=== PATIENT | male | born 1955 | race Caucasian/White ===

== ENCOUNTER 2019-11-19 08:08 | Outpatient (REF) | payer MEDICARE, SELFPAY ==
--- NOTE | 2019-11-19 08:59 | XR_ITS ---
EXAMINATION: XR CHEST CLINICAL INFORMATION: Weight loss. Smoking history. COMPARISON: Previous chest x-ray March 2015 TECHNIQUE: 2 views of the chest were obtained. FINDINGS: The cardiac and mediastinal contours are stable. The lungs are clear. There is no pleural effusion or pneumothorax. There are mild degenerative changes of the spine. IMPRESSION: No evidence for acute disease in the chest.
[2019-11-19 10:42] LABS: MANUAL DIFF FLAG NO
[2019-11-19 10:54] LABS: Basophils Absolute Auto 0.1 X10*3/uL (0.0-0.2); Basophils Percent Auto 0.6 % (0-2); Eosinophils Absolute Auto 0.2 X10*3/uL (0.0-0.4); Eosinophils Percent Auto 1.7 % (0-4); Hematocrit 48.5 % (42-52); Imm Gran Abs Auto 0.05 X10*3/uL (0.00-0.03); Imm Gran Pct Auto 0.5 % (0.0-0.4); Lymphocytes Absolute Auto 1.6 X10*3/uL (1.2-4.9); Lymphocytes Percent Auto 17.6 % (20-40); Mean Corpuscular Hemoglobin 33.1 pg (27.0-33.0); Mean Corpuscular Volume 100.4 fL (80-98); Monocytes Absolute Auto 0.6 X10*3/uL (0.1-1.2); Monocytes Percent Auto 6.5 % (2-11); Neutrophils Absolute Auto 6.8 X10*3/uL (2.0-8.3); Neutrophils Percent Auto 73.1 % (45-73); Platelet Count 186 X10*3/uL (160-400); Red Blood Count 4.83 X10*6/uL (4.60-5.80); Red Cell Distribution Width 13.6 % (11.0-16.0); White Blood Count 9.3 X10*3/uL (4.8-10.8)
[2019-11-19 11:05] LABS: Alanine Aminotransferase 30 U/L (0-40); Alkaline Phosphatase 67 U/L (39-117); Anion Gap 13 (12-20); Aspartate Amino Transferase 28 U/L (5-37); Bilirubin Total 1.2 mg/dL (0.0-1.0); Blood Urea Nitrogen 11 mg/dL (9-16); Calcium 8.6 mg/dL (8.4-10.2); Carbon Dioxide 27 mmol/L (22-29); Chloride 106 mmol/L (96-108); Cholesterol 169 mg/dL; Estimated Glomerular Filt Rate > 60; Glucose Fasting 86 mg/dL (60-99); HDL Cholesterol 59 mg/dL; LDL Cholesterol Calculated 99 mg/dl; Potassium 4.9 mmol/l (3.3-5.1); Sodium 141 mmol/L (135-145); Total Protein 6.3 g/dL (6.5-8.0); Triglycerides 55 mg/dL
[2019-11-19 11:06] LABS: Glucose Urine UA NEG (NEG); Leukocyte Esterase Urine NEG (NEG); Nitrite Urine NEG (NEG); PH 5.5 (5.0-8.0); Specific Gravity - Urine >= 1.030 (1.005-1.025); Urine Blood NEG (NEG); Urine Ketones NEG (NEG); Urine Protein NEG (NEG-TRACE)
[2019-11-19 11:11] LABS: Appearance Urine CLEAR; Color Urine YELLOW
[2019-11-19 11:27] LABS: Prostate Specific Antigen Scr 3.02 ng/mL (<0.05-4.0)
== END 2019-11-19 08:09 | disposition home or self-care (01) ==
LOC: HO.XRAY 08:08
PROVIDERS: PCP Internal Medicine; Visit Provider Internal Medicine
DX: I49.3 Ventricular premature depolarization (principal); R63.4 Abnormal weight loss; N40.0 Benign prostatic hyperplasia without lower urinary tract symptoms; Z12.5 Encounter for screening for malignant neoplasm of prostate; Z87.891 Personal history of nicotine dependence
CPT/HCPCS: 36415; 71046; 80053; 80061; 81003; 84153; 85025

== ENCOUNTER → 2019-11-21 10:21 | Outpatient (REF) | payer MEDICARE, SELFPAY ==
--- NOTE | 2019-11-21 10:27 | CA_ITS ---
Transthoracic Echocardiogram Patient (Last, First, Middle): Adelso Tilley J Gender: Male Date of : 1955 Age: 64 Procedure Date: 11/21/2019 Procedure Type: Transthoracic Echocardiogram Location: OP Height: 182.88 cm Weight: 99.79 kg BSA: 2.22 m2 Heart Rate: bpm BP: 144 / 84 mmHg Storage Battery Charger: Referring MD: Khoa Cagle MD Symptoms: [facility] [place] Study Quality: Fair ECG Rhythm: Sinus with PVCs Conclusions: - The left ventricular systolic function is normal. The visually estimated ejection fraction is between 55-60%. - The left atrium is moderately dilated. - There is mild tricuspid valve regurgitation. - Mild pulmonary hypertension is present. Findings Left Ventricle Normal left ventricular cavity size. There is normal left ventricular wall thickness. The left ventricular systolic function is normal. The visually estimated ejection fraction is between 55-60%. The calculated ejection fraction is 57% by biplane method. Diastolic function is indeterminate on the basis of available data. Right Ventricle Mildly increased right ventricular cavity size. There is normal right ventricular systolic function. Atria The left atrium is moderately dilated. The right atrium is mildly dilated. Aortic Valve There is a normal trileaflet aortic valve. There is no aortic valve stenosis. There is trace (trivial) aortic valve regurgitation. Mitral Valve The mitral valve appears normal. There is trace mitral valve regurgitation. There is no mitral valve stenosis. Pulmonic Valve The pulmonic valve was not well visualized. Tricuspid Valve There is mild tricuspid valve regurgitation. The right ventricular systolic pressure is 37 mmHg. Mild pulmonary hypertension is present. Great Vessels The aortic annulus, sinuses of valsalva, and asc aorta are normal in size. Venous The inferior vena cava is normal in size and collapses greater than 50% with inspiration. Pericardium/Pleural There is no evidence of pericardial effusion. Prior Study Comparison Changes noted compared to prior study dated: 12/13/2018. RVSP is higher. Left atrium dilated. Measurements 2D Linear Measurements RVIDd: 3.32 RVIDd Index: 1.50 IVSd: 1.10 0.6-0.9/0.6-1.0 cm LVIDd: 5.34 3.9-5.3/4.2-5.9 cm LVIDd Index: 2.41 2.4-3.2/2.2-3.1 cm/m2 LVIDs: 4.21 2.0-3.6 cm LVPWd: 0.89 0.7-1.1 cm Ao Root: 3.60 2.1-3.5 cm LA Diam: 4.40 2.7-3.8/3.0-4.0 cm LAIDs Index: 1.98 1.5-2.3 cm/m2 LV Mass: 251.73 67-162/88-224 g LV Mass Index: 113.39 43-95/49-115 g/m2 LVOT Diam: 2.20 3.0+(-)1.3 cm 2D Systolic Function EF 4C: 59.30 >55% EF 2C: 51.20 >55% EF BiP: 56.90 >55% Aortic Valve AoV Pk Meliton: 1.52 AoV Mn Meliton: 1.16 AoV VTI: 0.31 AoV Pk Grad: 9.00 Aov Mn Grad: 6.00 SANDRA Cont.VTI: 2.47 LVOT LVOT Pk Meliton: 0.92 LVOT Mn Meliton: 0.59 LVOT VTI: 0.20 LVOT Pk Grad: 3.00 LVOT Mn Grad: 2.00 LVOT Diam: 2.20 LVOT Area: 3.80 Tricuspid Valve TR Pk Meliton: 2.68 TR Pk Grad: 29.00 RA Press: 8.00 RVSP: 37.00 Great Vessels Aorta Ao Root-2D: 3.60 2.0-3.7 cm Ao Asc: 3.50 2.1-3.4 cm Ao Arch: 3.10 Updated in Other Vendor System with Status of Final Gualberto Cain MD electronically signed on 11/21/2019 2:48:04 PM with status of Final
--- NOTE | 2019-11-21 10:28 | ECG_ITS ---
Hook-up date: 2019-11-21 11:21:00 Duration: 26:33:00 Test Indications: Palpitations, PVC's, Bigeminy Medications: 70195 QRS complexes 22820 Ventricular ectopics which represent 37 % of total QRS comp. 44 Supraventricular ectopics which represent <1 % of total QRS comp. * Paced QRS complexs which represent % of total QRS comp. VENTRICULAR ECTOPY 63464 Isolated 73055 Bigeminal Cycles 1985 Couplets 1539 Runs 5317 Beats in Runs 15 Beats LONGEST at 76 BPM at 01:54:50 2019-11-22 3 Beats FASTEST at 223 BPM at 11:24:59 2019-11-21 SUPRAVENTRICULAR ECTOPY 26 Isolated 5 Couplets 2 Runs 8 Beats in Runs 5 Beats LONGEST at 151 BPM at 18:44:34 2019-11-21 5 Beats FASTEST at 151 BPM at 18:44:34 2019-11-21 HEART RATES 51 MIN at 20:09:46 2019-11-21 71 AVG 119 MAX at 11:33:49 2019-11-21 LONGEST RR 1.2160 secs at 20:09:40 2019-11-21 S-T LEVELS Channel 1 - 128 mm at 11:21:00 2019-11-21 - 128 mm at 11:21:00 2019-11-21 Channel 2 - 128 mm at 11:21:00 2019-11-21 - 128 mm at 11:21:00 2019-11-21 Channel 3 - 128 mm at 03:04:01 -- - 128 mm at 03:04:01 Underlying rhythm is sinus; Average ventricular rate 71/min; range 51-119/min; Frequent premature ventricular contractions; about 37,000 over 26 Hrs (38%); Mostly unifocal, but some with variable morphology; Isolated beats, couplets, bigeminy and with short runs (max 6-7 beats); No sustained tachycardia; Patient diary not available for review. Referred By: Khoa Cagle Overread By: ROYCE RODRIGUEZ
== END ==
LOC: HO.CARD 10:21
PROVIDERS: PCP Internal Medicine; Visit Provider Internal Medicine
DX: R00.2 Palpitations (principal); R00.9 Unspecified abnormalities of heart beat; I49.8 Other specified cardiac arrhythmias
CPT/HCPCS: 93225; 93226; 93306

== ENCOUNTER → 2019-12-31 10:35 | Outpatient (BNVA) | payer MEDICARE, SELFPAY | PROVIDERS: PCP Internal Medicine; Referring Provider Internal Medicine; Visit Provider Internal Medicine | DX: I49.3 Ventricular premature depolarization (principal) | CPT/HCPCS: 93005; 99212 ==

== ENCOUNTER → 2020-06-08 08:50 | Outpatient (REF) | payer MEDICARE, SELFPAY ==
--- NOTE | 2020-06-08 08:53 | ECG_ITS ---
Hook-up date: 2020-06-08 10:38:00 Duration: 24:49:00 Test Indications: PVC'S Medications: 49116 QRS complexes 35118 Ventricular ectopics which represent 21 % of total QRS comp. 95 Supraventricular ectopics which represent <1 % of total QRS comp. * Paced QRS complexs which represent % of total QRS comp. VENTRICULAR ECTOPY 40986 Isolated 5094 Bigeminal Cycles 1616 Couplets 264 Runs 866 Beats in Runs 21 Beats LONGEST at 115 BPM at 06:49:34 2020-06-09 3 Beats FASTEST at 142 BPM at 18:42:37 2020-06-08 SUPRAVENTRICULAR ECTOPY 41 Isolated 0 Couplets 10 Runs 54 Beats in Runs 9 Beats LONGEST at 122 BPM at 02:10:57 2020-06-09 3 Beats FASTEST at 136 BPM at 00:23:00 2020-06-09 HEART RATES 46 MIN at 05:11:23 2020-06-09 69 AVG 122 MAX at 23:37:24 2020-06-08 LONGEST RR 1.7840 secs at 04:38:48 2020-06-09 S-T LEVELS Channel 1 - 128 mm at 10:38:00 2020-06-08 - 128 mm at 10:38:00 2020-06-08 Channel 2 - 128 mm at 10:38:00 2020-06-08 - 128 mm at 10:38:00 2020-06-08 Channel 3 - 128 mm at 02:95:71 -- - 128 mm at 02:95:71 Basic rhythm Normal sinus rhythm No long pause or profound bradycardia Frequent Premature ventricular complexes , 21% of total beats Multiple 3-4 beat slavos of NSVT 21 beat run of AIVR at 115 bpm Rare Premature atrial complexes No diary submitted Referred By: Gualberto Cain Overread By: HALIMA BERNSTEIN MD
--- NOTE | 2020-06-08 08:53 | CA_ITS ---
Transthoracic Echocardiogram Patient (Last, First, Middle): Adelso Tilley J Gender: Male Date of : 1955 Age: 65 Procedure Date: 06/08/2020 Procedure Type: Transthoracic Echocardiogram Location: OP Height: 182.88 cm Weight: 118.39 kg BSA: 2.39 m2 Heart Rate: bpm BP: 130 / 68 mmHg [employer] Lead: Referring MD: Gualberto Cain MD Symptoms: I49.3 - Ventricular premature depolarization Study Quality: Fair ECG Rhythm: Sinus with PVCs Conclusions: - The left ventricular systolic function is low normal. The visually estimated ejection fraction is between 50-55%. - There is mild mitral valve regurgitation. - There is mild tricuspid valve regurgitation. Findings Left Ventricle Normal left ventricular cavity size. There is mildly increased left ventricular wall thickness. The left ventricular systolic function is low normal. The visually estimated ejection fraction is between 50-55%. There is no evidence of regional wall motion abnormalities. E/E prime ratio is >15, consistent with elevated filling pressures. Evidence suggests grade I (mild) diastolic dysfunction. False chord noted. Right Ventricle Normal right ventricular cavity size and systolic function. Atria The left atrium is mildly dilated. The right atrium is normal in size. Aortic Valve There is a normal trileaflet aortic valve. There is no aortic valve stenosis. There is trace (trivial) aortic valve regurgitation. Mitral Valve The mitral valve appears normal. There is mild mitral valve regurgitation. There is no mitral valve stenosis. Pulmonic Valve The pulmonic valve was not well visualized. Tricuspid Valve Normal tricuspid valve structure. There is mild tricuspid valve regurgitation. The pulmonary artery systolic pressure is normal. Great Vessels The aortic annulus, sinuses of valsalva, and asc aorta are normal in size. Venous The inferior vena cava is normal in size and collapses greater than 50% with inspiration. Pericardium/Pleural There is no evidence of pericardial effusion. Prior Study Comparison No significant change compared to prior study dated: 11/21/2019. Measurements 2D Linear Measurements IVSd: 1.23 0.6-0.9/0.6-1.0 cm LVIDd: 4.20 3.9-5.3/4.2-5.9 cm LVIDd Index: 1.76 2.4-3.2/2.2-3.1 cm/m2 LVIDs: 2.83 2.0-3.6 cm LVPWd: 1.25 0.7-1.1 cm Ao Root: 3.30 2.1-3.5 cm LA Diam: 3.60 2.7-3.8/3.0-4.0 cm LAIDs Index: 1.51 1.5-2.3 cm/m2 LV Mass: 232.95 67-162/88-224 g LV Mass Index: 97.47 43-95/49-115 g/m2 LVOT Diam: 2.10 3.0+(-)1.3 cm 2D Systolic Function EF 4C: 47.30 >55% EF 2C: 38.50 >55% Mitral Valve MV Pk E: 0.97 MV PK A: 0.70 MV Decel Time: 227.00 E/A: 1.40 E'Lateral: 8.51 E'Medial: 5.03 E/E' Med: 19.30 E/E' Lat: 11.40 PHT: 66.00 MVA PHT: 3.33 Decel Lucas: 4.28 Aortic Valve AoV Pk Meliton: 1.33 AoV Mn Meliton: 0.84 AoV VTI: 0.34 AoV Pk Grad: 7.00 Aov Mn Grad: 3.00 SANDRA Cont.VTI: 2.13 LVOT LVOT Pk Meliton: 0.86 LVOT Mn Meliton: 0.57 LVOT VTI: 0.21 LVOT Pk Grad: 3.00 LVOT Mn Grad: 2.00 LVOT Diam: 2.10 LVOT Area: 3.46 Diastolic Function MV Pk E: 0.97 MV Pk A: 0.70 E/A: 1.40 E'Medial: 5.03 E/E' Med: 19.30 E' Laterial: 8.51 E/E' Lat: 11.40 Tricuspid Valve TR Pk Meliton: 2.39 TR Pk Grad: 23.00 RA Press: 3.00 RVSP: 26.00 Great Vessels Aorta Ao Root-2D: 3.30 2.0-3.7 cm Ao Asc: 3.50 2.1-3.4 cm Pulmonary Valve PV Pk Meliton: 0.83 Peak PV Grad: 3.00 Updated in Other Vendor System with Status of Final Gualberto Cain MD electronically signed on 06/09/2020 4:59:09 PM with status of Final
== END ==
LOC: HO.CARD 08:50
PROVIDERS: Visit Provider Internal Medicine
DX: I25.10 Atherosclerotic heart disease of native coronary artery without angina pectoris (principal); I49.3 Ventricular premature depolarization
CPT/HCPCS: 93225; 93226; 93306

== ENCOUNTER → 2020-06-15 09:23 | Outpatient (BNVA) | payer MEDICARE, SELFPAY | PROVIDERS: PCP Internal Medicine; Visit Provider Internal Medicine | DX: I49.3 Ventricular premature depolarization (principal); G47.33 Obstructive sleep apnea (adult) (pediatric) | CPT/HCPCS: 99212 ==

== ENCOUNTER → 2020-07-01 08:43 | Outpatient (REF) | payer MEDICARE, SELFPAY | LOC: HO.SL 08:43 | PROVIDERS: PCP Internal Medicine; Visit Provider Internal Medicine | DX: G47.33 Obstructive sleep apnea (adult) (pediatric) (principal) | CPT/HCPCS: 95806 ==

== ENCOUNTER → 2020-07-03 08:50 | Outpatient (BNVA) | payer MEDICARE, SELFPAY | PROVIDERS: PCP Internal Medicine; Visit Provider Urology | DX: Z13.89 Encounter for screening for other disorder (principal) | CPT/HCPCS: 99202 ==

== ENCOUNTER 2020-07-17 09:17 | Outpatient (REF) | payer MEDICARE, SELFPAY ==
[2020-07-17 10:33] LABS: Anion Gap 13 (12-20); Blood Urea Nitrogen 17 mg/dL (9-16); Calcium 9.1 mg/dL (8.4-10.2); Carbon Dioxide 28 mmol/L (22-29); Chloride 108 mmol/L (96-108); Estimated Glomerular Filt Rate > 60; Glucose Random 81 mg/dL (60-115); Magnesium 1.9 mg/dL (1.6-2.6); Potassium 4.5 mmol/L (3.3-5.1); Sodium 144 mmol/L (135-145)
[2020-07-17 10:59] LABS: Free T4 (Free Thyroxine) 1.07 ng/dL (0.71-1.85); Thyroid Stimulating Hormone 0.89 uIU/mL (0.32-4.0)
== END 2020-07-17 09:18 | disposition home or self-care (01) ==
LOC: HO.10HDL 09:17
PROVIDERS: Visit Provider Internal Medicine
DX: I10 Essential (primary) hypertension (principal); G47.33 Obstructive sleep apnea (adult) (pediatric); R00.2 Palpitations
CPT/HCPCS: 36415; 80048; 83735; 84439; 84443

== ENCOUNTER → 2020-09-29 09:04 | Outpatient (BNVA) | payer MEDICARE, SELFPAY | PROVIDERS: PCP Internal Medicine; Visit Provider Internal Medicine | DX: I49.3 Ventricular premature depolarization (principal); G47.33 Obstructive sleep apnea (adult) (pediatric); N52.9 Male erectile dysfunction, unspecified | CPT/HCPCS: 99202 ==

== ENCOUNTER → 2020-10-02 08:14 | Outpatient (BNVA) | payer MEDICARE, SELFPAY | PROVIDERS: PCP Internal Medicine; Visit Provider Urology | DX: N52.9 Male erectile dysfunction, unspecified (principal) | CPT/HCPCS: 99212 ==

== ENCOUNTER → 2020-11-03 09:34 | Outpatient (BNVA) | payer MEDICARE, SELFPAY | PROVIDERS: PCP Internal Medicine; Visit Provider Internal Medicine | DX: G47.33 Obstructive sleep apnea (adult) (pediatric) (principal) | CPT/HCPCS: 99212 ==

== ENCOUNTER → 2020-12-22 07:59 | Outpatient (BNVA) | payer MEDICARE, SELFPAY | PROVIDERS: PCP Internal Medicine; Referring Provider Internal Medicine; Visit Provider Internal Medicine | DX: I49.3 Ventricular premature depolarization (principal); G47.33 Obstructive sleep apnea (adult) (pediatric) | CPT/HCPCS: 93005; 99212 ==

== ENCOUNTER → 2020-12-30 09:43 | Outpatient (BNVA) | payer MEDICARE, SELFPAY | PROVIDERS: PCP Internal Medicine; Visit Provider Urology | CPT/HCPCS: Q3014 ==

== ENCOUNTER 2021-01-07 09:29 | Outpatient (REF) | payer MEDICARE, SELFPAY ==
[2021-01-07 10:21] LABS: MANUAL DIFF FLAG NO
[2021-01-07 10:30] LABS: Basophils Absolute Auto 0.1 X10*3/uL (0.0-0.2); Basophils Percent Auto 0.4 % (0-2); Eosinophils Absolute Auto 0.3 X10*3/uL (0.0-0.4); Eosinophils Percent Auto 2.7 % (0-4); Hematocrit 42.9 % (42.0-52.0); Hemoglobin 14.4 g/dl (14.0-18.0); Imm Gran Abs Auto 0.09 X10*3/uL (0.00-0.03); Imm Gran Pct Auto 0.7 % (0.0-0.4); Lymphocytes Absolute Auto 2.3 X10*3/uL (1.2-4.9); Lymphocytes Percent Auto 18.6 % (20-40); Mean Corpuscular HGB Conc 33.6 g/dl (31.0-36.0); Mean Corpuscular Hemoglobin 33.1 pg (27.0-33.0); Mean Corpuscular Volume 98.6 fL (80.0-98.0); Monocytes Absolute Auto 0.9 X10*3/uL (0.1-1.2); Monocytes Percent Auto 7.4 % (2-11); Neutrophils Absolute Auto 8.5 x10*3/uL (2.0-8.3); Neutrophils Percent Auto 70.2 % (45-73); Platelet Count 204 X10*3/uL (160-400); Red Blood Count 4.35 X10*6/uL (4.60-5.80); Red Cell Distribution Width 12.9 % (11.0-16.0); White Blood Count 12.2 X10*3/uL (4.8-10.8)
[2021-01-07 10:39] LABS: Appearance Urine CLEAR; Color Urine YELLOW; Glucose Urine UA NEG (NEG); Leukocyte Esterase Urine NEG (NEG); Nitrite Urine NEG (NEG); Specific Gravity - Urine >= 1.030 (1.005-1.025); Urine Blood NEG (NEG); Urine Ketones NEG (NEG); Urine Protein TRACE MG/DL (NEG-TRACE)
[2021-01-07 11:10] LABS: Alanine Aminotransferase 13 U/L (0-40); Albumin Level 3.8 g/dL (3.5-5.0); Alkaline Phosphatase 70 U/L (39-117); Anion Gap 12 (12-20); Aspartate Amino Transferase 17 U/L (5-37); Bilirubin Total 1.2 mg/dL (0.0-1.0); Blood Urea Nitrogen 15 mg/dL (9-16); Calcium 8.9 mg/dL (8.4-10.2); Carbon Dioxide 27 mmol/L (22-29); Chloride 107 mmol/L (96-108); Cholesterol 164 mg/dL; Estimated Glomerular Filt Rate > 60; Glucose Fasting 101 mg/dL (60-99); HDL Cholesterol 61 mg/dL; LDL Cholesterol Calculated 91 mg/dl; Potassium 4.1 mmol/L (3.3-5.1); Sodium 142 mmol/L (135-145); Total Protein 6.2 g/dL (6.5-8.0); Triglycerides 62 mg/dL
[2021-01-07 11:26] LABS: Prostate Specific Antigen Scr 3.19 ng/mL (<0.05-4.0)
== END 2021-01-07 09:30 | disposition home or self-care (01) ==
LOC: HO.10HDL 09:29
PROVIDERS: Visit Provider Internal Medicine
DX: Z12.5 Encounter for screening for malignant neoplasm of prostate (principal); N40.0 Benign prostatic hyperplasia without lower urinary tract symptoms; K63.5 Polyp of colon
CPT/HCPCS: 36415; 80053; 80061; 81003; 84153; 85025

== ENCOUNTER → 2021-03-09 09:06 | Outpatient (BNVA) | payer MEDICARE, SELFPAY | PROVIDERS: PCP Internal Medicine; Visit Provider Internal Medicine | DX: G47.33 Obstructive sleep apnea (adult) (pediatric) (principal) | CPT/HCPCS: 99212 ==

== ENCOUNTER → 2021-06-02 07:29 | Outpatient (REF) | payer MEDICARE, SELFPAY ==
--- NOTE | 2021-06-02 07:43 | CA_ITS ---
Transthoracic Echocardiogram Patient (Last, First, Middle): Adelso Tilley J Gender: Male Date of : 1955 Age: 66 Procedure Date: 06/02/2021 Procedure Type: Transthoracic Echocardiogram Location: OP Height: 187.96 cm Weight: 105.69 kg BSA: 2.32 m2 Heart Rate: bpm BP: 132 / 70 mmHg Ordained Minister: ODILON Referring MD: Gualberto Cain MD Symptoms: I49.3 - Ventricular premature depolarization Study Quality: Fair ECG Rhythm: Sinus with extra beats Conclusions: - The left ventricular systolic function is low normal. The calculated ejection fraction is 53% by biplane method. - No obvious valvular pathology seen on this study. Findings Left Ventricle Normal left ventricular cavity size. There is mildly increased left ventricular wall thickness. The left ventricular systolic function is low normal. The calculated ejection fraction is 53% by biplane method. There is no evidence of regional wall motion abnormalities. Diastolic function is indeterminate on the basis of available data. Right Ventricle Normal right ventricular cavity size and systolic function. Atria Both atria are normal in size. Aortic Valve There is a normal trileaflet aortic valve. There is no aortic valve stenosis. There is trace (trivial) aortic valve regurgitation. Mitral Valve The mitral valve appears normal. There is trace mitral valve regurgitation. There is no mitral valve stenosis. Pulmonic Valve The pulmonic valve is likely normal. Tricuspid Valve Normal tricuspid valve structure. There is trace tricuspid valve regurgitation. The pulmonary artery systolic pressure is normal. Great Vessels The asc aorta is normal in size. Small plaque is seen in the sino tubular ridge. Venous The inferior vena cava is normal in size and collapses greater than 50% with inspiration. Pericardium/Pleural There is no evidence of pericardial effusion. Prior Study Comparison No significant change compared to prior study dated: 06/08/2020. Recommendations, Care & Conclusions No obvious valvular pathology seen on this study. Measurements 2D Linear Measurements IVSd: 1.04 0.6-0.9/0.6-1.0 cm LVIDd: 5.43 3.9-5.3/4.2-5.9 cm LVIDd Index: 2.34 2.4-3.2/2.2-3.1 cm/m2 LVIDs: 3.48 2.0-3.6 cm LVPWd: 1.05 0.7-1.1 cm LA Diam: 3.90 2.7-3.8/3.0-4.0 cm LAIDs Index: 1.68 1.5-2.3 cm/m2 LV Mass: 275.76 67-162/88-224 g LV Mass Index: 118.86 43-95/49-115 g/m2 LVOT Diam: 2.00 3.0+(-)1.3 cm 2D Systolic Function EF 4C: 53.50 >55% EF 2C: 52.00 >55% EF BiP: 52.80 >55% Mitral Valve MV Pk E: 0.75 MV PK A: 0.47 MV Decel Time: 282.00 E/A: 1.60 E'Lateral: 7.51 E'Medial: 6.09 E/E' Med: 12.40 E/E' Lat: 10.00 PHT: 83.00 MVA PHT: 2.65 Decel [place]: 2.67 Aortic Valve AoV Pk Meliton: 1.51 AoV Mn Meliton: 1.02 AoV VTI: 0.36 AoV Pk Grad: 9.00 Aov Mn Grad: 5.00 SANDRA Cont.VTI: 1.78 LVOT LVOT Pk Meliton: 0.80 LVOT Mn Meliton: 0.55 LVOT VTI: 0.20 LVOT Pk Grad: 3.00 LVOT Mn Grad: 1.00 LVOT Diam: 2.00 LVOT Area: 3.14 Diastolic Function MV Pk E: 0.75 MV Pk A: 0.47 E/A: 1.60 E'Medial: 6.09 E/E' Med: 12.40 E' Laterial: 7.51 E/E' Lat: 10.00 Right Ventricle TAPSE (mm): 31.00 Tricuspid Valve TR Pk Meliton: 2.66 TR Pk Grad: 28.00 RA Press: 3.00 RVSP: 31.00 Great Vessels Aorta Sinus of Valsalva: 3.97 2.0-3.[address] [place]: 3.27 1.7-3.4 cm Ao Asc: 3.60 2.1-3.4 cm Ao Arch: 3.10 Updated in Other Vendor System with Status of Final Gualberto Cain MD electronically signed on 06/03/2021 4:54:05 PM with status of Final
--- NOTE | 2021-06-02 08:34 | HM_ITS ---
* Total monitoring time 3 days and 12 hours. * Underlying rhythm is sinus. Average rate 77/Min. Range 54 to 124/Min. * No atrial fibrillation or flutter or AV blocks or pauses. * Frequent supraventricular ectopy. [place] 4%. Brief runs noted. Longest 34 beats. * Frequent ventricular ectopy. 2 morphologies. Isolated beats, couplets and very brief runs. 4 episodes of NSVT. Longest 4 beats. Overall burden 6%. * No clear patient symptoms documented. MTDD
== END ==
LOC: HO.CARD 07:29
PROVIDERS: PCP Internal Medicine; Visit Provider Internal Medicine
DX: I49.3 Ventricular premature depolarization (principal)
CPT/HCPCS: 93242; 93306

== ENCOUNTER → 2021-06-15 08:55 | Outpatient (BNVA) | payer MEDICARE, SELFPAY | PROVIDERS: PCP Internal Medicine; Referring Provider Internal Medicine; Visit Provider Internal Medicine | DX: I49.3 Ventricular premature depolarization (principal); G47.33 Obstructive sleep apnea (adult) (pediatric); R78.0 Finding of alcohol in blood | CPT/HCPCS: 99212 ==

== ENCOUNTER → 2021-06-29 08:54 | Outpatient (BNVA) | payer MEDICARE, SELFPAY | PROVIDERS: PCP Internal Medicine; Visit Provider Urology | DX: N52.9 Male erectile dysfunction, unspecified (principal) ==

== ENCOUNTER → 2021-08-10 08:28 | Outpatient (BNVA) | payer MEDICARE, SELFPAY | PROVIDERS: PCP Internal Medicine; Visit Provider Urology | DX: N52.9 Male erectile dysfunction, unspecified (principal); Z79.899 Other long term (current) drug therapy | CPT/HCPCS: Q3014 ==

== ENCOUNTER → 2021-10-12 09:38 | Outpatient (BNVA) | payer MEDICARE, SELFPAY | PROVIDERS: PCP Internal Medicine; Visit Provider Internal Medicine | DX: G47.33 Obstructive sleep apnea (adult) (pediatric) (principal) | CPT/HCPCS: 99212 ==

== ENCOUNTER 2021-11-24 09:17 | Outpatient (REF) | payer MEDICARE, SELFPAY ==
[2021-11-24 10:36] LABS: MANUAL DIFF FLAG NO
[2021-11-24 11:05] LABS: Basophils Absolute Auto 0.1 X10*3/uL (0.0-0.2); Basophils Percent Auto 0.7 % (0-2); Eosinophils Absolute Auto 0.3 X10*3/uL (0.0-0.4); Eosinophils Percent Auto 3.5 % (0-4); Hematocrit 45.5 % (42.0-52.0); Hemoglobin 15.4 g/dl (14.0-18.0); Imm Gran Abs Auto 0.05 X10*3/uL (0.00-0.03); Imm Gran Pct Auto 0.6 % (0.0-0.4); Lymphocytes Absolute Auto 1.7 X10*3/uL (1.2-4.9); Mean Corpuscular HGB Conc 33.8 g/dl (31.0-36.0); Mean Corpuscular Hemoglobin 33.2 pg (27.0-33.0); Mean Corpuscular Volume 98.1 fL (80.0-98.0); Monocytes Absolute Auto 0.7 X10*3/uL (0.1-1.2); Monocytes Percent Auto 8.1 % (2-11); Neutrophils Absolute Auto 5.4 x10*3/uL (2.0-8.3); Neutrophils Percent Auto 66.1 % (45-73); Platelet Count 224 X10*3/uL (160-400); Red Blood Count 4.64 X10*6/uL (4.60-5.80); Red Cell Distribution Width 12.6 % (11.0-16.0); White Blood Count 8.2 X10*3/uL (4.8-10.8)
[2021-11-24 11:21] LABS: Alanine Aminotransferase 16 U/L (0-40); Albumin Level 3.9 g/dL (3.5-5.0); Alkaline Phosphatase 63 U/L (39-117); Anion Gap 12 (12-20); Aspartate Amino Transferase 20 U/L (5-37); Bilirubin Total 0.9 mg/dL (0.0-1.0); Blood Urea Nitrogen 13 mg/dL (9-16); Carbon Dioxide 28 mmol/L (22-29); Chloride 105 mmol/L (96-108); Cholesterol 188 mg/dL; Estimated Glomerular Filt Rate > 60; Glucose Fasting 95 mg/dL (60-99); HDL Cholesterol 61 mg/dL; LDL Cholesterol Calculated 115 mg/dl; Potassium 4.1 mmol/L (3.3-5.1); Sodium 141 mmol/L (135-145); Total Protein 6.4 g/dL (6.5-8.0); Triglycerides 62 mg/dL
[2021-11-24 11:42] LABS: Prostate Specific Antigen Scr 1.89 ng/mL (<0.05-4.0)
[2021-11-24 14:20] LABS: Appearance Urine Cloudy; Color Urine Yellow; Glucose Urine UA Negative (Negative); Leukocyte Esterase Urine Trace (Negative); Nitrite Urine Negative (Negative); PH 5.5 (5.0-9.0); UMIC TRIGGER UA YES; Urine Blood Negative (Negative); Urine Ketones Negative (Negative); Urine Protein Negative (Neg-Trace)
[2021-11-24 14:25] LABS: Bacteria Urine None Seen (None Seen); Hyaline Casts Urine 0-2 /LPF (0-2); RBC Urine 0-2 /HPF (0-2); Squamous Epithelial Cell Urine 0-2 /HPF (0-2); WBC Urine 0-5 /HPF (0-5)
== END 2021-11-24 09:18 | disposition home or self-care (01) ==
LOC: HO.10HDL 09:17
PROVIDERS: Visit Provider Internal Medicine
DX: Z00.00 Encounter for general adult medical examination without abnormal findings (principal); Z12.5 Encounter for screening for malignant neoplasm of prostate
CPT/HCPCS: 36415; 80053; 80061; 81001; 84153; 85025

== ENCOUNTER 2022-07-14 09:49 | Outpatient (REF) | payer MEDICARE, SELFPAY ==
[2022-07-14 11:36] LABS: Anion Gap 11 (12-20); Blood Urea Nitrogen 12 mg/dL (9-16); Calcium 9.2 mg/dL (8.4-10.2); Carbon Dioxide 27 mmol/L (22-29); Chloride 108 mmol/L (96-108); Estimated Glomerular Filt Rate > 60; Glucose Random 100 mg/dL (60-115); Magnesium 2.1 mg/dL (1.6-2.6); Potassium 4.4 mmol/L (3.3-5.1); Sodium 142 mmol/L (135-145)
[2022-07-14 11:53] LABS: Free T4 (Free Thyroxine) 1.03 ng/dL (0.71-1.85)
== END 2022-07-14 09:50 | disposition home or self-care (01) ==
LOC: HO.10HDL 09:49
PROVIDERS: Visit Provider Internal Medicine
DX: I10 Essential (primary) hypertension (principal); I49.3 Ventricular premature depolarization
CPT/HCPCS: 36415; 80048; 83735; 84439

== ENCOUNTER 2022-09-20 09:08 | Outpatient (AMB) | payer MEDICARE, SELFPAY ==
--- NOTE | 2022-09-20 09:09 | MHC.OFFVIS ---
Intake Intake Visit Reasons: 1Y Follow Up(Erectile Dysfunction) Intake Note: Patient is present for Follow Up Urology Med: Tadalafil Antibiotic Allergy: None Blood Thinner: None Pharmacy: [facility] Allergies No Known Allergies Allergy (Verified 09/20/22 09:11) HPI HPI Comments History of Present Illness Details Adelso is a pleasant male. He is a patient Dr. Shook. He is seen for the following urologic conditions - erectile dysfunction Yearly review Still using daily tadalafil Did obtain vacuum pump Would like to try on demand medications in addition Tadalafil 20 mg prescribed Encouraged penile exercises with pump Erectile dysfunction Longstanding Prior therapy - combination therapy with daily tadalafil 10 mg and on demand medication had partial response Recommend continuing with daily tadalafil and addition of generic Viagra on a as needed basis Had failed when using Viagra on an as-needed basis Comorbidities obstructive sleep apnea recent diagnosis PSA 11/27 1.9 Review in 12 months COUNTS INCLUDE 234 BEDS AT THE [facility] Medical History Alcohol blood level excessive PVC (premature ventricular contraction) Surgical History No pertinent past surgical history Family History Father Atrial fibrillation Mother No problems noted. Social History Patient Tobacco Use Status: Former Tobacco user Years Smoked: 1994 Substance Use Type: Marijuana Review of Systems Const Denies chills and Denies fever(s) Card Reports no additional complaints and Denies syncope Resp Denies cough GI Denies abdominal pain and Denies heartburn Reports as per HPI and Denies change in libido Neuro Denies syncope Psych Denies change in libido Endo Denies change in libido Physical Exam Const General: cooperative, healthy appearing, comfortable and no acute distress Orientation/consciousness: patient oriented x3 HEENT Face and sinus: Yes normal facial exam Mouth: moist mucous membranes Neck Neck: Yes normal visual inspection, Yes full ROM and Yes trachea midline Chest Chest palpation & inspection: normal inspection of the chest Resp Effort & Inspection: normal respiratory effort, able to speak in complete sentences and no respiratory distress GI Inspection: Yes normal to inspection Back/Spine/Pelvis Cervical Spine: normal cervical lordosis Thoracic/Lumbar Spine: thoracic and lumbar spine normal to inspection Skin General skin exam: no rashes or lesions noted Neuro General: patient oriented x3, gait normal, tone normal and moves all extremities Extrem General: Yes normal to inspection and Yes capillary refill normal Assessment & Plan Assessment & Plan (1) Erectile dysfunction: Comment: Maximum daily therapy Code(s): N52.9 - Male erectile dysfunction, unspecified Plan Three month follow-up tele visit Medications: New tadalafil On demand medication take 60 minutes before intended activity 20 mg PO ONCE PRN 30 tabs 0RF sexual activity 30 days N52.9 - Male erectile dysfunction, unspecified Patient Instructions: Imaging studies, laboratory and physical exam results were discussed and reviewed in detail. No major barriers to patient understanding were identified. An opportunity to ask questions regarding the treatment plan was provided. All questions were answered. The patient expressed understanding and agreement with the above treatment plan. The patient is aware they should contact our office by phone for worsening of their current condition or the appearance of new urologic symptoms. Compliance is encouraged with any medications and followup testing that is ordered. It is a privilege to participate in the urologic care of your patient. If you have any questions or concerns regarding treatment for the above conditions, or other urologic issues, please do not hesitate to contact me. The office telephone contact is [phone]. This note is constructed using voice recognition software. While every effort has been made to ensure accuracy provider network analyst errors may have been included. Yours sincerely, Dr oCrby Coronel MD, [facility] - Urology Providers of Expert, Compassionate Care for the Genitourinary System Coding Level of Care Code Est Pt Level 4 (60382) Diagnoses Erectile dysfunction N52.9
== END 2022-09-20 09:30 | disposition home or self-care (01) ==
PROVIDERS: Visit Provider Urology
DX: N52.9 Male erectile dysfunction, unspecified (principal)
CPT/HCPCS: 99214

== ENCOUNTER → 2022-09-20 09:08 | Outpatient (BNVA) | payer MEDICARE, SELFPAY | PROVIDERS: Visit Provider Urology | DX: N52.9 Male erectile dysfunction, unspecified (principal) | CPT/HCPCS: 99212 ==

== ENCOUNTER 2022-10-07 08:08 | Outpatient (AMB) | payer MEDICARE, SELFPAY ==
[2022-10-07 08:12] VITALS: BP 114/72; PULSE 57; BMI 31.4
--- NOTE | 2022-10-07 08:12 | A.OFFVIS_ITS ---
Intake Vital Signs 10/07/22 08:12 Height 6 ft Weight 231 lb 7.766 oz BMI 31.4 BP 114/72 Blood Pressure Location Rt brachial Position Sitting Pulse 57 Intake Visit Reasons: follow up per patient Intake Note: f/up Process Control Programmer Required: No Allergies No Known Allergies Allergy (Verified 10/07/22 08:24) Medication List - Last Reconciled 10/07/22 by Aleah Davidson, [employer] brimonidine 0.2% 1 drp ophthalmic-Right Q12H dorzolamide-timolol 22.3-6.8 mg/mL mL ophthalmic (eye) latanoprost 0.005% 1 drp ophthalmic-Right BEDTIME metoprolol succinate ER 50 mg PO DAILY HPI follow up per patient HPI Details Adelso is a 67-year-old male with past medical history untreated obstructive sleep apnea, frequent PVCs who presents for follow-up. Today he reports that he has been doing very well since his last visit 06/15/2021. Is not had any hospitalizations, ER trips or changes to his health. He continues to drink about 8 beers a day and smoke marijuana daily. He denies any heart palpitations, dizziness, presyncope, syncope. No chest discomfort at rest or with activity. No shortness of breath, PND, orthopnea or edema. He denies any daytime sleepiness and tells me he has been sleeping much better recently. He does not use CPAP mask. He takes his metoprolol daily. Walks on the treadmill daily for about 30 minutes. Has [address] which he does work on. Has no cardiac questions or concerns. [facility] Medical History Alcohol blood level excessive PVC (premature ventricular contraction) Surgical History No pertinent past surgical history Family History Father Atrial fibrillation Mother No problems noted. Social History Patient Tobacco Use Status: Former Tobacco user Years Smoked: 1994 Substance Use Type: Marijuana Review of Systems Const All systems reviewed & are unremarkable except as noted in HPI and below ENT Denies dizziness Card Denies chest pain, Denies chest pain at rest, Denies chest pain with activity, Denies rapid heart rate, Denies pedal edema, Denies edema, Denies leg edema, Denies lightheadedness, Denies palpitations, Denies dyspnea, Denies dyspnea on exertion and Denies orthopnea Resp Denies cough, Denies dyspnea and Denies dyspnea on exertion GI Denies hematochezia and Denies change in stool character Musc Denies abnormal gait, Denies limited range of motion, Denies muscle cramps, D enies muscle weakness, Denies numbness, Denies radiating pain into limb, Denies stiffness and Denies tingling Neuro Denies abnormal gait, Denies dizziness, Denies numbness and Denies tingling Endo Denies palpitations Physical Exam Const General: cooperative, healthy appearing, comfortable and no acute distress Orientation/consciousness: patient oriented x3 Neck Neck: Yes normal visual inspection Resp Effort & Inspection: normal respiratory effort Auscultation: clear to auscultation bilaterally, no crackles, no rales, no rho nchi and no wheezes Cardio Jugular venous distension: no JVD Rate: regular rate Rhythm: regular rhythm Heart sounds: S1 normal heart sound present, S2 normal heart sound present, no gallops, no murmurs and no rubs Neuro General: patient oriented x3 Extrem General: Yes normal to inspection and No no pedal edema Psych Appearance: grossly normal Mental Status: mental status grossly normal Speech and movement: Normal speech and movement present Office Procedures EKG Details: Today, read by me, normal sinus bradycardia, 1 PVC, no acute ST or T-wave abnormalities, rate 57, QTC 422 milliseconds [id number], Complete Assessment & Plan Assessment & Plan (1) PVC (premature ventricular contraction): Code(s): I49.3 - Ventricular premature depolarization Plan: History of frequent PVCs and short NSVT runs. In the past PVC burden as high as 38%. Last Holter monitor done 06/02/2021 showed sinus rhythm with average heart rate 77, PVC burden 6%, Pac burden 4%. A nuclear stress test was done on 12/13/2018 showing no ischemia or infarct. Last echo 06/02/2021 showed EF 53%, no valve abnormalities. He does have a known history of sleep apnea with sleep study done 07/01/2020 showing [id number] sleep apnea. He was not able to tolerate CPAP mask. He has followed with pulmonology and tells me that he is currently sleeping well with no daytime sleepiness. Today he has no reports of heart palpitations, dizziness, presyncope, syncope. He continues to drink alcohol routinely and smoke marijuana. Each of these factors contribute to his PVCs. EF was normal on last check. No clinical signs of heart failure on exam ination. He continues on metoprolol XL 50 mg daily. Will arrange for cardiology follow-up in 1 year, sooner if needed. Instructed to call office if he starts with any concerning symptoms and updated testing will be done at that time (2) PEYMAN (obstructive sleep apnea): Code(s): G47.33 - Obstructive sleep apnea (adult) (pediatric) Coding Level of Care Code Est Pt Level 3 (57577) Diagnoses PVC (premature ventricular contraction) I49.3 PEYMAN (obstructive sleep apnea) G47.33 CPT Codes EKG - CPT: 83413-[id number], Complete ([id number]) Time Spent (min) 22 Comment Chart review, documentation, interview, assessment
== END 2022-10-07 08:34 | disposition home or self-care (01) ==
PROVIDERS: PCP Internal Medicine; Referring Provider Internal Medicine; Visit Provider Nurse Practitioner Family
DX: I49.3 Ventricular premature depolarization (principal); G47.33 Obstructive sleep apnea (adult) (pediatric)
CPT/HCPCS: 93010; 99213

== ENCOUNTER → 2022-10-07 08:08 | Outpatient (BNVA) | payer MEDICARE, SELFPAY | PROVIDERS: PCP Internal Medicine; Referring Provider Internal Medicine; Visit Provider Nurse Practitioner Family | DX: I49.3 Ventricular premature depolarization (principal); G47.33 Obstructive sleep apnea (adult) (pediatric) | CPT/HCPCS: 93005; 99212 ==

== ENCOUNTER 2022-12-27 09:07 | Outpatient (AMB) | payer MEDICARE, SELFPAY ==
--- NOTE | 2022-12-27 09:08 | MHC.OFFVIS ---
Intake Intake Visit Reasons: Erectile Dysfunction- follow up Intake Note: Patient is Present for Telephone Follow Up Urology Med: None Antibiotic Allergy: None Blood Thinner: None Allergies No Known Allergies Allergy (Verified 12/27/22 09:09) HPI HPI Comments History of Present Illness Details Adelso is a pleasant male. He is a patient Dr. Shook. He is seen for the following urologic conditions - erectile dysfunction Telemedicine Evaluation 15 min Consultation Doximity Ivelisse Video attempted 3m f/u med check Some benefit from tadalafil 20 mg with 10 mg on demand Will increase to maximum on demand tadalafil Has penile vacuum pump Increase tadalafil to 40 mg on demand with 10 mg daily Erectile dysfunction Longstanding Prior therapy - combination therapy with daily tadalafil 10 mg and on demand medication had partial response Recommend continuing with daily tadalafil and addition of generic Viagra on a as needed basis Had failed when using Viagra on an as-needed basis Comorbidities obstructive sleep apnea recent diagnosis PSA 11/27 1.9 Review in 6 months [facility] Medical History Alcohol blood level excessive PVC (premature ventricular contraction) Surgical History No pertinent past surgical history Family History Father Atrial fibrillation Mother No problems noted. Social History Patient Tobacco Use Status: Former Tobacco user Years Smoked: 1994 Substance Use Type: Marijuana Review of Systems Const All systems reviewed & are unremarkable except as noted in HPI and below Reports no additional complaints Resp Reports no additional complaints GI Reports no additional complaints Reports as per HPI Musc Reports no additional complaints Physical Exam Telemedicine evaluation Appropriate responses Regular breathing rate and rhythm HEENT Head: Yes normal to inspection Ears: hearing grossly normal bilaterally Eyes General: appearance normal, both eyes and all related structures Neck Neck: Yes normal visual inspection Chest Chest palpation & inspection: normal inspection of the chest Resp Effort & Inspection: normal respiratory effort and able to speak in complete sentences Assessment & Plan Assessment & Plan (1) Erectile dysfunction: Comment: Maximum daily therapy Code(s): N52.9 - Male erectile dysfunction, unspecified Plan Six month follow-up Medications: New tadalafil On demand medication take 60 minutes before intended activity - may take 2 tabs 20 mg PO ONCE 30 days PRN 30 tabs 0RF sexual activity N52.9 - Male erectile dysfunction, unspecified Patient Instructions: Imaging studies, laboratory and physical exam results were discussed and reviewed in detail. No major barriers to patient understanding were identified. An opportunity to ask questions regarding the treatment plan was provided. All questions were answered. The patient expressed understanding and agreement with the above treatment plan. The patient is aware they should contact our office by phone for worsening of their current condition or the appearance of new urologic symptoms. Compliance is encouraged with any medications and followup testing that is ordered. It is a privilege to participate in the urologic care of your patient. If you have any questions or concerns regarding treatment for the above conditions, or other urologic issues, please do not hesitate to contact me. The office telephone contact is [phone]. This note is constructed using voice recognition software. While every effort has been made to ensure accuracy audit practice intern errors may have been included. Yours sincerely, Dr Corby Coronel MD, [facility] - Urology Providers of Expert, Compassionate Care for the Genitourinary System Telehealth Telehealth Location of provider rendering services: practice address Location of patient: address on file Patient Identification confirmed using: Name, : Yes Telehealth method: video Patient verbally consented to treatment: Yes Patient verbally consented to billing insurance company: Yes Patient informed of any privacy concerns related to visit: Yes Coding Level of Care Code Tele Est Pt Level 3 (80858) Diagnoses Erectile dysfunction N52.9
== END 2022-12-27 09:39 | disposition home or self-care (01) ==
LOC: HO.HUSH 09:07
PROVIDERS: PCP Internal Medicine; Visit Provider Urology
DX: N52.9 Male erectile dysfunction, unspecified (principal)
CPT/HCPCS: 99213

== ENCOUNTER → 2022-12-27 09:07 | Outpatient (BNVA) | payer MEDICARE, SELFPAY | PROVIDERS: PCP Internal Medicine; Visit Provider Urology ==

== ENCOUNTER 2023-02-20 10:42 | Outpatient (REF) | payer MEDICARE, SELFPAY ==
[2023-02-20 13:24] LABS: Appearance Urine Turbid; Color Urine Yellow; Glucose Urine UA Negative (Negative); Leukocyte Esterase Urine Negative (Negative); PH 5.5 (5.0-9.0); Specific Gravity - Urine >= 1.030 (1.005-1.025); UMIC TRIGGER UA YES; Urine Protein 30 (1+) mg/dL (Neg-Trace)
[2023-02-20 13:28] LABS: MANUAL DIFF FLAG NO
[2023-02-20 13:34] LABS: Basophils Absolute Auto 0.1 X10*3/uL (0.0-0.2); Basophils Percent Auto 0.6 % (0-2); Eosinophils Absolute Auto 0.2 X10*3/uL (0.0-0.4); Eosinophils Percent Auto 1.9 % (0-4); Hematocrit 45.5 % (42.0-52.0); Hemoglobin 15.8 g/dl (14.0-18.0); Imm Gran Abs Auto 0.03 X10*3/uL (0.00-0.03); Imm Gran Pct Auto 0.3 % (0.0-0.4); Lymphocytes Absolute Auto 1.9 X10*3/uL (1.2-4.9); Lymphocytes Percent Auto 19.9 % (20-40); Mean Corpuscular HGB Conc 34.7 g/dl (31.0-36.0); Mean Platelet Volume 10.7 fL (9.4-12.4); Monocytes Absolute Auto 0.9 X10*3/uL (0.1-1.2); Neutrophils Absolute Auto 6.6 x10*3/uL (2.0-8.3); Neutrophils Percent Auto 68.3 % (45-73); Platelet Count 206 X10*3/uL (160-400); Red Blood Count 4.79 X10*6/uL (4.60-5.80); Red Cell Distribution Width 12.8 % (11.0-16.0); White Blood Count 9.6 X10*3/uL (4.8-10.8)
[2023-02-20 13:39] LABS: Urine Blood Negative (Negative)
[2023-02-20 13:40] LABS: Nitrite Urine Negative (Negative); Urine Ketones Negative (Negative)
[2023-02-20 13:42] LABS: Bacteria Urine None Seen (None Seen); Calcium Oxalate Crystals Urine Present; Granular Casts Urine Present; RBC Urine 0-2 /HPF (0-2); Squamous Epithelial Cell Urine 0-2 /HPF (0-2); WBC Urine 0-5 /HPF (0-5)
[2023-02-20 13:45] LABS: Alanine Aminotransferase 19 U/L (0-40); Albumin Level 4.2 g/dL (3.5-5.0); Alkaline Phosphatase 70 U/L (39-117); Anion Gap 12 (12-20); Aspartate Amino Transferase 21 U/L (5-37); Bilirubin Total 1.3 mg/dL (0.0-1.0); Blood Urea Nitrogen 15 mg/dL (9-16); Calcium 9.5 mg/dL (8.4-10.2); Carbon Dioxide 29 mmol/L (22-29); Chloride 105 mmol/L (96-108); Cholesterol 191 mg/dL (<200); Estimated Glomerular Filt Rate > 60; Glucose Fasting 109 mg/dL (60-99); HDL Cholesterol 63 mg/dL (>40); LDL Cholesterol Calculated 110 mg/dL (<100); Potassium 4.1 mmol/L (3.3-5.1); Sodium 142 mmol/L (135-145); Total Protein 7.3 g/dL (6.5-8.0); Triglycerides 94 mg/dL (<150)
[2023-02-20 14:02] LABS: Prostate Specific Antigen Scr 0.98 ng/mL (<0.05-4.0)
== END 2023-02-20 10:43 | disposition home or self-care (01) ==
LOC: HO.10HDL 10:42
PROVIDERS: Visit Provider Internal Medicine
DX: Z12.5 Encounter for screening for malignant neoplasm of prostate (principal); R00.2 Palpitations; N40.0 Benign prostatic hyperplasia without lower urinary tract symptoms; I10 Essential (primary) hypertension
CPT/HCPCS: 36415; 80053; 80061; 81001; 84153; 85025

== ENCOUNTER 2023-06-27 09:01 | Outpatient (AMB) | payer MEDICARE, SELFPAY ==
--- NOTE | 2023-06-27 09:19 | A.OFFVIS_ITS ---
Intake Visit Reasons: 6M Med Review(tadalafil) Intake Note: Patient is Present for Follow Up Urology Medication: Tadalafil Antibiotic Allergies: None Blood Thinners: None Allergies No Known Allergies Allergy (Verified 06/27/23 09:22) Medication List - Last Reconciled 06/27/23 by Corby Coronel MD brimonidine 0.2% 1 drp ophthalmic-Right Q12H dorzolamide-timolol 22.3-6.8 mg/mL mL ophthalmic (eye) latanoprost 0.005% 1 drp ophthalmic-Right BEDTIME metoprolol succinate ER 50 mg PO DAILY tadalafil 20 mg PO ONCE PRN 30 days tadalafil 10 mg PO DAILY PRN 90 days HPI Comments Details: Adelso is a pleasant male. He is a patient Dr. Shook. He is seen for the following urologic conditions - erectile dysfunction Six-month follow-up Some benefit from tadalafil 20 mg with 10 mg on demand Continues to use penile pump as well Would like to continue Six-month follow-up Erectile dysfunction Longstanding Prior therapy - combination therapy with daily tadalafil 10 mg and on demand medication had partial response Recommend continuing with daily tadalafil and addition of generic Viagra on a as needed basis Had failed when using Viagra on an as-needed basis Comorbidities obstructive sleep apnea recent diagnosis PSA 11/27 1.9 Review in 6 months [facility] Medical History Alcohol blood level excessive PVC (premature ventricular contraction) Surgical History No pertinent past surgical history Family History Father Atrial fibrillation Mother No problems noted. Social History Patient Tobacco Use Status: Former Tobacco user Years Smoked: 1994 Substance Use Type: Marijuana Review of Systems Const Denies chills and Denies fever(s) Card Reports no additional complaints and Denies syncope Resp Denies cough GI Denies abdominal pain and Denies heartburn Reports as per HPI and Denies change in libido Neuro Denies syncope Psych Denies change in libido Endo Denies change in libido Physical Exam Const General: cooperative, healthy appearing, comfortable and no acute distress Orientation/consciousness: patient oriented x3 HEENT Face and sinus: Yes normal facial exam Mouth: moist mucous membranes Neck Neck: Yes normal visual inspection, Yes full ROM and Yes trachea midline Chest Chest palpation & inspection: normal inspection of the chest Resp Effort & Inspection: normal respiratory effort, able to speak in complete sentences and no respiratory distress GI Inspection: Yes normal to inspection Back/Spine/Pelvis Cervical Spine: normal cervical lordosis Thoracic/Lumbar Spine: thoracic and lumbar spine normal to inspection Skin General skin exam: no rashes or lesions noted Neuro General: patient oriented x3, gait normal, tone normal and moves all extremities Extrem General: Yes normal to inspection and Yes capillary refill normal Assessment & Plan Assessment & Plan (1) Erectile dysfunction: Comment: Maximum daily therapy Code(s): N52.9 - Male erectile dysfunction, unspecified Category: Medical Plan Six-month follow-up office Medications: Refilled tadalafil On demand medication take 60 minutes before intended activity - may take 2 tabs 20 mg PO ONCE PRN 30 tabs 0RF sexual activity 30 days N52.9 - Male erectile dysfunction, unspecified tadalafil 10 mg PO DAILY PRN 90 tabs 1RF sexual activity 90 days Patient Instructions: Imaging studies, laboratory and physical exam results were discussed and reviewed in detail. No major barriers to patient understanding were identified. An opportunity to ask questions regarding the treatment plan was provided. All questions were answered. The patient expressed understanding and agreement with the above treatment plan. The patient is aware they should contact our office by phone for worsening of their current condition or the appearance of new urologic symptoms. Compliance is encouraged with any medications and followup testing that is ordered. It is a privilege to participate in the urologic care of your patient. If you have any questions or concerns regarding treatment for the above conditions, or other urologic issues, please do not hesitate to contact me. The office telephone contact is [phone]. This note is constructed using voice recognition software. While every effort has been made to ensure accuracy openstack cloud consulting architect errors may have been included. Yours sincerely, Dr Corby Coronel MD, [facility] - Urology Providers of Expert, Compassionate Care for the Genitourinary System Coding Level of Care Code Est Pt Level 3 (85523) Diagnoses Erectile dysfunction N52.9
== END 2023-06-27 09:36 | disposition home or self-care (01) ==
PROVIDERS: PCP Internal Medicine; Visit Provider Urology
DX: N52.9 Male erectile dysfunction, unspecified (principal)
CPT/HCPCS: 99213

== ENCOUNTER → 2023-06-27 09:01 | Outpatient (BNVA) | payer MEDICARE, SELFPAY | PROVIDERS: PCP Internal Medicine; Visit Provider Urology | DX: N52.9 Male erectile dysfunction, unspecified (principal) | CPT/HCPCS: 99212 ==

== ENCOUNTER → 2023-09-11 08:54 | Outpatient (REF) | payer MEDICARE, SELFPAY ==
--- NOTE | 2023-09-11 08:56 | CA_ITS ---
Transthoracic Echocardiogram Patient (Last, First, Middle): Adelso Tilley J Gender: Male Date of : 1955 Age: 68 Procedure Date: 09/11/2023 Procedure Type: Transthoracic Echocardiogram Location: OP Height: 182.88 cm Weight: 102.06 kg BSA: 2.24 m2 Heart Rate: bpm BP: 130 / 70 mmHg Grey Iron Molder: ODILON Sebastian MD: Aleah Davidson PATIENT APPOINTMENT COORDINATORShwetha Cloth Bleaching Range Operator Chief: John Brooke MD Symptoms: I49.3 - Ventricular premature depolarization Study Quality: Fair ECG Rhythm: Sinus Conclusions: - 1. Normal LV ejection fraction 55-60% with impaired relaxation filling pattern 2. Trace aortic regurgitation 3. Mildly dilated ascending aorta at 3.7 cm 4. Normal RV systolic pressure 5. No pericardial effusion Findings Left Ventricle Normal left ventricular size, thickness, and systolic function. The visually estimated ejection fraction is between 55-60%. Spectral Doppler is indicative of an impaired relaxation filling pattern. E/E prime ratio is between 8 and 15 consistent with indeterminate filling pressures. Right Ventricle Normal right ventricular cavity size and systolic function. Atria Both atria are normal in size. There is a mobile atrial septum noted. There is no evidence of interatrial shunt. Aortic Valve Normal aortic valve structure and function. There is no aortic valve stenosis. There is trace (trivial) aortic valve regurgitation. Mitral Valve Normal mitral valve structure and function. There is trace mitral valve regurgitation. There is no mitral valve stenosis. Pulmonic Valve The pulmonic valve is likely normal. There is trace pulmonic valve regurgitation. Tricuspid Valve Normal tricuspid valve structure. There is trace tricuspid valve regurgitation. The right ventricular systolic pressure is normal. The right ventricular systolic pressure is 31 mmHg. Normal right atrial pressure. There is no evidence of pulmonary hypertension. Great Vessels The pulmonary artery was not well visualized. There is mild dilatation of the ascending aorta measuring 3.70 cm. Venous The inferior vena cava is normal in size and collapses greater than 50% with inspiration. Pericardium/Pleural There is no evidence of pericardial effusion. Measurements 2D Linear Measurements IVSd: 1.13 0.6-0.9/0.6-1.0 cm LVIDd: 4.96 3.9-5.3/4.2-5.9 cm LVIDd Index: 2.21 2.4-3.2/2.2-3.1 cm/m2 LVIDs: 3.49 2.0-3.6 cm LVPWd: 1.18 0.7-1.1 cm Ao Root: 3.60 2.1-3.5 cm LA Diam: 3.90 2.7-3.8/3.0-4.0 cm LAIDs Index: 1.74 1.5-2.3 cm/m2 LV Mass: 272.71 67-162/88-224 g LV Mass Index: 121.74 43-95/49-115 g/m2 LVOT Diam: 2.20 3.0+(-)1.3 cm 2D Systolic Function EF 4C: 57.10 >55% EF 2C: 56.80 >55% EF BiP: 57.50 >55% Mitral Valve MV Pk E: 0.66 MV PK A: 0.82 MV Decel Time: 210.00 E/A: 0.80 E'Lateral: 6.53 E'Medial: 6.31 E/E' Med: 10.50 E/E' Lat: 10.10 PHT: 61.00 MVA PHT: 3.61 Decel Kimball: 3.14 Aortic Valve AoV Pk Meliton: 1.31 AoV Mn Meliton: 0.89 AoV VTI: 0.28 AoV Pk Grad: 7.00 Aov Mn Grad: 4.00 SANDRA Cont.VTI: 2.65 LVOT LVOT Pk Meliton: 0.80 LVOT Mn Meliton: 0.57 LVOT VTI: 0.20 LVOT Pk Grad: 3.00 LVOT Mn Grad: 1.00 LVOT Diam: 2.20 LVOT Area: 3.80 Diastolic Function MV Pk E: 0.66 MV Pk A: 0.82 E/A: 0.80 E'Medial: 6.31 E/E' Med: 10.50 E' Laterial: 6.53 E/E' Lat: 10.10 Right Ventricle TAPSE (mm): 30.80 TVS' Meliton: 13.70 Tricuspid Valve TR Pk Meliton: 2.42 TR Pk Grad: 23.00 RA Press: 8.00 RVSP: 31.00 Great Vessels Aorta Ao Root-2D: 3.60 2.0-3.7 cm Ao Asc: 3.70 2.1-3.4 cm Ao Arch: 3.10 Updated in Other Vendor System with Status of Final John Brooke MD electronically signed on 09/11/2023 12:08:59 PM with status of Final
== END ==
LOC: HO.CARD 08:54
PROVIDERS: PCP Internal Medicine; Visit Provider Nurse Practitioner Family
DX: I49.3 Ventricular premature depolarization (principal)
CPT/HCPCS: 93306

== ENCOUNTER → 2023-09-11 08:56 | Outpatient (BNV) | payer MEDICARE, SELFPAY | PROVIDERS: PCP Internal Medicine; Visit Provider Internal Medicine Cardiovascular Disease | DX: I35.1 Nonrheumatic aortic (valve) insufficiency (principal) | CPT/HCPCS: 93306 ==

== ENCOUNTER 2023-10-19 07:59 | Outpatient (AMB) | payer MEDICARE, SELFPAY ==
[2023-10-19 08:15] VITALS: BP 120/72; PULSE 66; BMI 31.0
--- NOTE | 2023-10-19 08:15 | A.OFFVIS_ITS ---
Vital Signs 10/19/23 08:15 Height 6 ft Weight 228 lb 6.382 oz BMI 31.0 BP 120/72 Blood Pressure Location Lt brachial Position Sitting Pulse 66 Pulse Source Monitor Intake Visit Reasons: 1 year follow up Ambulance Driver Paramedic Required: No Accompanied by: Self / Same As Patient Allergies No Known Allergies Allergy (Verified 06/27/23 09:22) Medication List - Last Reconciled 10/19/23 by Gualberto Cain MD brimonidine 0.2% 1 drp ophthalmic-Right Q12H dorzolamide-timolol 22.3-6.8 mg/mL mL ophthalmic (eye) latanoprost 0.005% 1 drp ophthalmic-Right BEDTIME metoprolol succinate ER 50 mg PO DAILY tadalafil 20 mg PO ONCE PRN 30 days tadalafil 10 mg PO DAILY PRN 90 days HPI Comments Details: Adelso returns for follow-up regarding premature ventricular contractions. In the past, detected to have PVCs during colonoscopy. Then referred to Cardiology. Overall, he states he feels fine. No cardiac symptoms whatsoever. Uses marijuana regularly and relates that depression. He also drinks a lot of alcohol, at least 8 beers daily. Untreated sleep apnea. He is also overweight. It is likely that all of these contribute in some way to the PVCs. No known coronary disease or myocardial infarction or cardiomyopathy. Since last seen, he states he feels fine. [facility] Medical History Alcohol blood level excessive PVC (premature ventricular contraction) Surgical History No pertinent past surgical history Family History Father Atrial fibrillation Mother No problems noted. Social History Patient Tobacco Use Status: Former Tobacco user Years Smoked: 1994 Substance Use Type: Marijuana Review of Systems Const Denies chills, Denies fatigue, Denies fever(s), Denies frequent falls, Denies weakness, Denies weight gain and Denies weight loss ENT Denies dizziness Card Denies chest pain, Denies leg edema, Denies lightheadedness, Denies p alpitations, Denies dyspnea and Denies dyspnea on exertion Resp Denies cough, Denies dyspnea and Denies dyspnea on exertion GI Denies hematochezia Musc Denies abnormal gait, Denies muscle weakness, Denies numbness, Denies radiating pain into limb and Denies tingling Neuro Denies abnormal gait, Denies dizziness, Denies frequent falls, Denies numbness, Denies tingling and Denies weakness Endo Denies fatigue and Denies palpitations Physical Exam Vital Signs: Last Vital Signs Pulse 66 10/19/23 08:15 BP 120/72 10/19/23 08:15 BMI result Body Mass Index 31.0 Const General: comfortable and no acute distress Orientation/consciousness: patient oriented x3 HEENT Other: Unremarkable Head: Yes normal to inspection Neck Neck: Yes normal visual inspection Chest Chest palpation & inspection: normal inspection of the chest Resp Auscultation: clear to auscultation bilaterally Cardio Palpation: normal PMI Heart sounds: S1 normal heart sound present, S2 normal heart sound present, no gallops, no murmurs and no rubs GI Palpation (GI): Soft to palpation Back/Spine/Pelvis Other: unremarkable Skin General skin exam: no rashes or lesions noted Neuro General: patient oriented x3 Extrem General: Yes normal to inspection Psych Mental Status: mental status grossly normal Office Procedures EKG Details: EKG with underlying sinus rhythm at 66/Min; no significant ST-T changes and otherwise unremarkable. [place]. [id number], Complete Assessment & Plan Assessment & Plan (1) PVC (premature ventricular contraction): Code(s): I49.3 - Ventricular premature depolarization Category: Medical Plan: In the last Holter from 2021, underlying rhythm is sinus. PVC burden is 6%. There are 4 episodes of NSVT, longest 4 beats. Overall, PVC burden is much improved from before where it was 21% under runs were also longer. Even prior to that, it was 38% burden. In the recent echocardiogram, LVEF is 55-60% and otherwise unremarkable. Myocardial perfusion imaging study 2019 shows no evidence of any ischemia or infarction. During the exercise component, there were frequent multifocal PVCs and runs of NSVT of up to 9 beats. Continue beta-blockers. Otherwise, discussed about possible contributing factors including alcohol, marijuana, weight, sleep apnea among others. He understands. (2) PEYMAN (obstructive sleep apnea): Code(s): G47.33 - Obstructive sleep apnea (adult) (pediatric) Category: Medical Plan: Sleep study shows mild to moderately severe obstructive sleep apnea. Intolerant of CPAP. He is aware that it might be contributing to the arrhythmias. (3) Alcohol blood level excessive: Code(s): R78.0 - Finding of alcohol in blood Category: Medical Plan: He drinks at least 8 beers daily. Again discussed relationship to arrhythmias. Unclear if he will cut back at all. Even today in the clinic, he smells of alcohol. Orders: Orders ECG 3 day holter monitor Today I49.3 - Ventricular premature depolarization Coding Level of Care Code Est Pt Level 4 (06368) Diagnoses PVC (premature ventricular contraction) I49.3 PEYMAN (obstructive sleep apnea) G47.33 Alcohol blood level excessive R78.0 CPT Codes EKG - CPT: [id number], Complete ([id number])
== END 2023-10-19 08:32 | disposition home or self-care (01) ==
PROVIDERS: PCP Internal Medicine; Visit Provider Internal Medicine
DX: I49.3 Ventricular premature depolarization (principal); G47.33 Obstructive sleep apnea (adult) (pediatric); R78.0 Finding of alcohol in blood
CPT/HCPCS: 93010; 99214

== ENCOUNTER → 2023-10-19 07:59 | Outpatient (BNVA) | payer MEDICARE, SELFPAY | PROVIDERS: PCP Internal Medicine; Visit Provider Internal Medicine | DX: I49.3 Ventricular premature depolarization (principal); G47.33 Obstructive sleep apnea (adult) (pediatric); R78.0 Finding of alcohol in blood | CPT/HCPCS: 93005; 99212 ==

== ENCOUNTER → 2023-11-15 07:04 | Outpatient (REF) | payer MEDICARE, SELFPAY ==
--- NOTE | 2023-11-15 07:07 | HM_ITS ---
* Total monitoring time 3 days. * Underlying rhythm is sinus with an average rate of 78/Min. * Supraventricular ectopy noted with a burden of 2.1%. Brief runs noted. * Ventricular ectopy noted with a burden of 3.4%. Rare couplets, triplets, bigeminy, trigeminy. Run of idioventricular rhythm during sleep hours. Multiple morphologies. * No significant pauses or high-grade AV blocks. * No patient markers or diary events. MTDD
== END ==
LOC: HO.CARD 07:04
PROVIDERS: PCP Internal Medicine; Visit Provider Internal Medicine
DX: I49.3 Ventricular premature depolarization (principal)
CPT/HCPCS: 93242

== ENCOUNTER → 2023-11-15 07:07 | Outpatient (BNV) | payer MEDICARE, SELFPAY | PROVIDERS: PCP Internal Medicine; Visit Provider Internal Medicine | DX: I47.10 Supraventricular tachycardia, unspecified (principal) | CPT/HCPCS: 93244 ==

== ENCOUNTER 2023-12-13 10:39 | Outpatient (REF) | payer MEDICARE, SELFPAY ==
[2023-12-13 12:33] LABS: PSA,Total (Free>4and<10) 1.16 ng/mL (0.00-4.00)
== END 2023-12-13 10:40 | disposition home or self-care (01) ==
LOC: HO.10HDL 10:39
PROVIDERS: Visit Provider Urology
DX: Z12.5 Encounter for screening for malignant neoplasm of prostate (principal); N52.9 Male erectile dysfunction, unspecified; I49.3 Ventricular premature depolarization
CPT/HCPCS: 36415; 84153

== ENCOUNTER 2023-12-28 08:33 | Outpatient (AMB) | payer MEDICARE, SELFPAY ==
--- NOTE | 2023-12-28 08:36 | A.OFFVIS_ITS ---
Intake Visit Reasons: 6M PSA Follow Up(set) Intake Note: Patient is present for PSA Follow up Urology Med: Tadalafil Antibiotic Allergy: None Blood Thinner: None LABS: 12/13/2023 - PSA: 1.16 Patient is requesting refill on tadalafil Telephone Interviewer Required: No Accompanied by: Self / Same As Patient Allergies No Known Allergies Allergy (Verified 12/28/23 08:40) HPI Comments Details: Adelso is a pleasant male. He is a patient Dr. Shook. He is seen for the following urologic conditions - erectile dysfunction Six-month follow-up High-dose tadalafil protocol Some benefit from tadalafil 10 mg with 20 mg on demand Continues to use penile pump as well - had trouble with released valve Information for purchase provided Would like to continue Erectile dysfunction Longstanding Prior therapy - combination therapy with daily tadalafil 10 mg and on demand medication had partial response Recommend continuing with daily tadalafil and addition of generic Viagra on a as needed basis Had failed when using Viagra on an as-needed basis Comorbidities obstructive sleep apnea recent diagnosis PSA 11/27 1.9 Review in 6 months [facility] Medical History Alcohol blood level excessive PVC (premature ventricular contraction) Surgical History No pertinent past surgical history Family History Father Atrial fibrillation Mother No problems noted. Social History Patient Tobacco Use Status: Former Tobacco user Years Smoked: 1994 Substance Use Type: Marijuana Review of Systems Const Denies chills and Denies fever(s) Card Reports no additional complaints and Denies syncope Resp Denies cough GI Denies abdominal pain and Denies heartburn Reports as per HPI and Denies change in libido Neuro Denies syncope Psych Denies change in libido Endo Denies change in libido Physical Exam Const General: cooperative, healthy appearing, comfortable and no acute distress Orientation/consciousness: patient oriented x3 HEENT Face and sinus: Yes normal facial exam Mouth: moist mucous membranes Neck Neck: Yes normal visual inspection, Yes full ROM and Yes trachea midline Chest Chest palpation & inspection: normal inspection of the chest Resp Effort & Inspection: normal respiratory effort, able to speak in complete sentences and no respiratory distress GI Inspection: Yes normal to inspection Back/Spine/Pelvis Cervical Spine: normal cervical lordosis Thoracic/Lumbar Spine: thoracic and lumbar spine normal to inspection Skin General skin exam: no rashes or lesions noted Neuro General: patient oriented x3, gait normal, tone normal and moves all extremities Extrem General: Yes normal to inspection and Yes capillary refill normal Assessment & Plan Assessment & Plan (1) Erectile dysfunction: Comment: Maximum daily therapy Code(s): N52.9 - Male erectile dysfunction, unspecified Category: Medical Plan Six-month follow-up office Medications: Refilled tadalafil 10 mg PO DAILY 90 days PRN 90 tabs 1RF sexual activity tadalafil On demand medication take 60 minutes before intended activity - may take 2 tabs 20 mg PO ONCE 30 days PRN 30 tabs 0RF sexual activity N52.9 - Male erectile dysfunction, unspecified Patient Instructions: Imaging studies, laboratory and physical exam results were discussed and reviewed in detail. No major barriers to patient understanding were identified. An opportunity to ask questions regarding the treatment plan was provided. All questions were answered. The patient expressed understanding and agreement with the above treatment plan. The patient is aware they should contact our office by phone for worsening of their current condition or the appearance of new urologic symptoms. Compliance is encouraged with any medications and followup testing that is ordered. It is a privilege to participate in the urologic care of your patient. If you have any questions or concerns regarding treatment for the above conditions, or other urologic issues, please do not hesitate to contact me. The office telephone contact is [phone]. This note is constructed using voice recognition software. While every effort has been made to ensure accuracy pharmacology associate errors may have been included. Yours sincerely, Dr Corby Coronel MD, [facility] - Urology Providers of Expert, Compassionate Care for the Genitourinary System Coding Level of Care Code Est Pt Level 3 (02895) Diagnoses Erectile dysfunction N52.9
--- OUTSIDE RECORDS SUMMARY | 2023-12-29 14:36 | XMS_ITS ---
Author Organization [facility] Donavan shelby Brice Address [address] [facility] [place] [address] Care Team Providers Care Felt Finishing Supervisor Name Role Phone Khoa Cagle MD Primary Care Provider Jonia Hellen Quach Unavailable [phone] Allergies No Known Allergies REASON FOR VISIT Pcp- 04/01, Pcp- 04/01, Painful nail(s) aggrevated by shoes causing difficulty standing/walking, Skin Problem Medications Medication SIG (Take, Route, Frequency, Duration) Notes Start Date End Date Status Ciclopirox 0.77 % 1 application to aff ected area Externally Twice a day to effected nails for 30 days 02/10/2023 Active Metoprolol Succinate Active Ciclopirox Olamine 0.77 % 1 application Externally Twice a day for 30 days Active Social History Tobacco Use: Social History Observation Description Date Details (start date - stop date) Former Smoker NA - NA Tobacco Use/Smoking Question Answer Notes Are you a: former smoker Additional Findings: Tobacco Non-User Current no n-smoker Alcohol Screen Question Answer Notes Did you have a drink contain ing alcohol in the past year? Yes How often did you have a dri nk containing alcohol in the past year? 4 or more times a week (4 points) How often did you have 6 or more drinks on one occasion in the past year? Daily or almost daily (4 points) Points 8 Interpretation Positive Tobacco use other than smoking: Question Answer Notes Are you an other tobacco user? No Vital Signs Height 6ft in 06/23/2023 Weight 225 lbs 06/23/2023 BMI 30.51 kg/m2 06/23/2023 Encounters Encounter Location Date Provider Diagnosis [facility] [place] [address] [place] [address] 06/23/2023 Hellen Ibarra Tinea unguium B35.1 ; Tinea pedis of both feet B35.3 ; Pain in right toe(s) M79.674 and Pain in left toe(s) M79.675 Assessments Encounter Date Diagnosis (ICD Code) Assessment Notes Treatment Notes Treatment Clinical Notes 06/23/2023 Tinea unguium (ICD-10 - B35.1) 06/23/2023 Tinea pedis of both feet (ICD-10 - B35.3) 06/23/2023 Pain in right toe(s) (ICD-10 - M79.674) 06/23/2023 Pain in left toe(s) (ICD-10 - M79.675) Plan Of Treatment Medication Medication Name Sig Start Date Stop Date Notes Ciclopirox 0.77 % 1 application to aff ected area Externally Twice a day to effected nails for 30 days 02/10/2023 Ciclopirox Olamine 0.77 % 1 application Externally Twice a day for 30 days Next Appt Details Follow Up: 2 Months, Reason: Procedure Notes * Category Sub-Category Detail Notes Debride Nail 6-10 Nail debridement Nail debridem ent performed extensively to reduce/remove overall nail length, girth, thickness, subungual debris, and necrotic tissue, by manual and electrical means through the use of a nail nipper and/or dremel, to more viable healthy nail plate or bed tissue 1-5. Silver nitrate used for any petechial bleeding as necessary. Patient chooses, Ciclopirox gel Progress Notes * Adelso ALMANZADOB: (68 yo M)Acc No.[id number]:06/23/2023 Progress Note Patient:?Piotr Almanza Provider:?Hellen Ibarra DPM :1955???Age:68 Y???Sex:Male Fritz e:06/23/2023 Address:[address] [place], [place] [id number] Pcp:Khoa Cagle MD Subjective: * Chief Complaints: * ???Pcp- 02/24Pcp- 04/01Painf ul nail(s) aggrevated by shoes causing difficulty standing/walkingSkin Problem * HPI: ???Painful Nails:?Pt States Last PCP Visit:?Date:?03/29/2023 ???Skin problems:?Nature:?dryness redness scaling.?Location:?B/L .?Course:?improved.?Treatments:?Medication (Ciclopirox Olamine 0.77 Cream).? * ROS:?General/Constitutional:?Nausea?denies, denies, denies.?Vomiting?denies, denies, denies.?Hunger Thirst?denies, denies, denies.?Loss appetite?denies, denies, denies.?Chills?denies, denies, denies.?Fatigue?denies, denies, denies.?Fever?denies, denies, denies.?Night Sweats?denies, denies, denies.?Unexplained weight loss?denies, denies, denies.?Unexplained weight gain?denies, denies, denies.?HEENTM:?Dentures?denies, denies, denies.?Dizziness?denies, denies, denies.?Glasses/contacts?admits, admits, admits.?Retinopathy?denies, denies, denies.?Blurred/double vision?denies, denies, denies.?TMJ?denies, denies, denies.?Discharge/drainage?denies, denies, denies.?Implants?denies, denies, denies.?Sore throat?denies, denies, denies.?Dental implants?denies, denies, denies.?Hard of hearing ?denies, denies, denies.?Difficulty chewing/swallowing/speaking denies, denies, denies.?Nose bleeds?denies, denies, denies.?Sore mouth?denies, denies, denies.?Respiratory:?On Oxygen?denies, denies, denies.?Pneumonia/pleurisy?denies, denies, denies.?Bronchitis?denies, denies, denies.?Emphysema?denies, denies, denies.?Coughing?denies, denies, denies.?Cough blood?denies, denies, denies.?Shortness of breath?denies, denies, denies.?Wheezing?denies, denies, denies.?Cardiovascular:?Pacemaker?denies, denies, denies.?MVP?denies, denies, denies.?WPW?denies, denies, denies.?CHF?denies, denies, denies.?Heart attack?denies, denies, denies.?Septal defect?denies, denies, denies.?Rapid beat denies, denies, denies.?Chest pain ?denies, denies, denies.?Atrial Fib.?denies, denies, denies.?Murmur/Palpitations?denies, denies, denies.?Gastrointestinal:?Hemorrhoids?denies, denies, denies.?Stomach/Abdominal pain?denies, denies, denies.?Dark blood stool?denies, denies, denies.?Irritable bowel ?denies, denies, denies.?Constipation?denies, denies, denies.?Diarrhea?denies, denies, denies.?Hematology:?Swelling?denies, denies, denies.?Clots?denies, denies, denies.?Varicose Veins?denies, denies, denies.?Bruising?denies, denies, denies.?Bleeding problem?denies, denies, denies.?Genitourinary:?Blood urine?denies, denies, denies.?Frequent/Painfu/urination/bladder control?denies, denies, denies.?Kidney stones?denies, denies, denies.?Infection (UTI)?denies, denies, denies.?Nephropathy?denies, denies, denies. sex trans dis (STD)?denies, denies, denies.?Prostate?denies, denies, denies.?Musculoskeletal:?Hammertoes?denies, denies, denies.?Bunions?denies, denies, denies.?Back Pain?denies, denies, denies.?Muscle Cramps/ Resting?denies, denies, denies.?Muscle cramps / walking?denies, denies, denies.?Generalized aches and pains?denies, denies, denies.?Weakness?denies, denies, denies.?Integ.:?Hawkins?denies, denies, denies.?Scars?denies, denies, denies.?Corns/calluses?denies, denies, denies.?Ingrown nails?denies, denies, denies.?Painful nails?denies, denies, denies.?Open Sores?denies, denies, denies.?Rashes?denies, denies, denies.?Neurologic:?Difficulty sleeping?denies, denies, denies.?Brain disorder?denies, denies, denies.?Numbness?denies, denies, denies.?Balance trouble?denies, denies, denies.?Confusion?denies, denies, denies.?Fainting/blackouts?denies, denies, denies.?Tingling?denies, denies, denies.?Tremors?denies, denies, denies.? * Medical History:? * Surgical History:?colonoscop y * Hospitalization/Major Diagno stic Procedure:?Denies Past Hospitalization * Family History:?No Family Hi story documented..? * Social History:?Tobacco Use:?Tobacco Use/Smoking?Are you a:?former smoker ?Additional Findings: Tobacco Non-User?Current non-smoker ?Tobacco use other than smoking?Are you an other tobacco user??No ???Drugs/Alcohol:?Drugs?Have you used drugs other than those for medical reasons in the past 12 months??Yes ?Marijuana??Yes ?Alcohol Screen?Did you have a drink containing alcohol in the past year??Yes ?How often did you have a drink containing alcohol in the past year??4 or more times a week (4 points) ?How often did you have 6 or more drinks on one occasion in the past year??Daily or almost daily (4 points) ?Points?8 ?Interpretation?Positive ???Miscellaneous:?Caffeine: yes, frequency:, 1-2 cups some days not everyday. ?no Children. ?Exercise: yes, walking on treadmill. ?Marital status: . ?Occupation: Retired- [employer]. * Medications:?TakingMetoprolo l Succinate Ciclopirox Olamine 0.77 % Cream 1 application Externally Twice a dayCiclopirox 0.77 % Gel 1 application to affected area Externally Twice a day to effected nailsMedication List reviewed and reconciled with the patientTaking Metoprolol Succinate Taking Ciclopirox Olamine 0.77 % Cream 1 application Externally Twice a dayTaking Ciclopirox 0.77 % Gel 1 application to affected area Externally Twice a day to effected nailsMedication List reviewed and reconciled with the patient * Allergies:?N.K.D.A.yes[Aller gies Verified] Objective: * Vitals:?Ht: 6ft, Wt:225, BMI :30.51, Shoe size: 11, Ht-cm: 182.88 cm, Wt-k.06 kg. * Examination: ???General Examination: ?GENERAL APPEARANCE:?Reveals a pleasant, alert, well-nourished, well- developed, well hydrated individual, who demonstrates proper attention to hygiene/body habitus, and is in no acute distress, Pt serves as own?historian for office visit today.?ORIENTED:?person, place, and time.?Neurological: ?SENSORY:?Neurological exam reveals intact sensorium, pain sensation normal, vibration sensation intact, pinprick sensation is normal in the lower extremities, Pt denies, anesthesia, burning, paresthesia, tingling, B/L.?DEEP TENDON REFLEXES:?Achilles, /4, B/L.?Vascular: ?DP PULSES:?3/4, B/L.?PT PULSES:?/4, B/L.?CAPILLARY FILL TIME:?immediate, all digits, B/L.?SKIN TEMPERTURE GRADIENT OF THE LOWER EXTERMITIES:?warm to cool, proximal to distal, B/L.?HAIR GROWTH/TEXTURE/ELASTICITY/TURGOR:?normal, B/L.?PIGMENTATION:?normal, B/L.?EDEMA:?absent, B/L.?Dermatologic: ?SKIN FINDINGS:?Skin shows approximately __50_% LESS sign(s) of, erythema, scaling, in a moccasin fashion, no fissure(s) present, B/L.?Orthopedic: ?MUSCLE STRENGTH:?5/5 all groups in a symmetrical fashion , B/L.?Nails: ?NAILS are:?Elongated, overgrown, dystrophic, lytic, greater than 3mm thick, discolored and friable with crumbly malodorous subungual debris, with pain on palpation 1-5 B/L.? Assessment: * Assessment: 1.?Tinea unguium - B35.1?2.? Tinea pedis of both feet - B35.3 (Primary), Acute problem, Uncomplicated (3),Rx drug management (4)?3.?Pain in right toe(s) - M79.674?4.?Pain in left toe(s) - M79.675? Plan: * Treatment: * Procedures:?Debride Nail 6-10:?Nail debridement?Nail debridement performed extensively to reduce/remove overall nail length, girth, thickness, subungual debris, and necrotic tissue, by manual and electrical means through the use of a nail nipper and/or dremel, to more viable healthy nail plate or bed tissue 1-5. Silver nitrate used for any petechial bleeding as necessary. Patient chooses, Ciclopirox gel.? * Procedure Codes:?25940 DEBRI DE NAIL, 6 OR MORE, Modifiers: XS * Preventive Medicine:? ??Counseling:?Discussion:?-13: Office or other outpatient visit for the evaluation and management of an established patient, which required a medically appropriate history and/or examination and LOW level of DECISION MAKING for: 1 STABLE ACUTE UNCOMPLICATED PROBLEM, 2 OR MORE MINOR PROBLEMS, OR 1 STABLE CHRONIC PROBLEM, THAT POSE(S) A LOW RISK FOR MORBIDITY/MORTALITY. The visit on the day of the encounter encompassed interpreting the data and educating the patient as to the nature of their condition, treatment options available according to their individual PMH, meds, allergies, and overall health/living conditions, as well as any potential risks or complications that may occur from a failure to adhere to, and participate in, the recommended course of therapy. The discussion included a complete verbal, and/or written explanation of the examination results, any x-rays taken, the proposed diagnosis, and outline of the treatment plan. A schedule for future care needs was also explained. The patient verbalized an understanding of the instructions at this time and agreed to be an active participant in their treatment. If the patient should think of any questions or concerns after the visit, I have encouraged the patient to call the office.?Tinea Pedis:?Given recent successful results to treatment, The patient is to cont the rx cream as directed.? * Follow Up:?2 Months * Images: * Sign off status: Completed true * Provider:Elba Ibarra DPM Date:? Generated for Declani demetris/Sophia/Caio on:?12/29/2023 02:35 PM EST History and Physical Notes * HPI (History of Present Illness) Category Sub-Category Detail Notes Painful Nails Pt States Last PCP Visit: Date:: 024 Skin problems Nature: dryness redness scaling Location: B/L Course: improved Treatments: Medication (Ciclopir ox Olamine 0.77 Cream) Examination Category Sub-Category Detail Notes Neurological SENSORY: Neurological exa m reveals intact sensorium, pain sensation normal, vibration sensation intact, pinprick sensation is normal in the lower extremities, Pt denies, anesthesia, burning, paresthesia, tingling, B/L DEEP TENDON REFLEXES: Achilles, 2/4, B/L Dermatologic SKIN FINDINGS: Skin shows appro ximately __50_% LESS sign(s) of, erythema, scaling, in a moccasin fashion, no fissure(s) present, B/L Orthopedic MUSCLE STRENGTH: 5/5 all groups in a symmetrical fashion , B/L General Examination GENERAL APPEARANCE: Reveals a pleasant, alert, well- nourished, well-developed, well hydrated individual, who demonstrates proper attention to hygiene/body habitus, and is in no acute distress, Pt serves as own historian for office visit today ORIENTED: person, place, and t bettina Vascular DP PULSES(B): 3/4, B/L PT PULSES(B): 3/4, B/L CAPILLARY FILL TIME: immediate, all digi ts, B/L TEMPERTURE GRADIENT(C): warm to cool, pr oximal to distal, B/L TROPHIC CONDITION-TEXTURE/ELASTICITY/TURGOR/HAIR GROWTH(B): normal, B/L EDEMA(C): absent, B/L PIGMENTATION: normal, B/L Nails NAILS are: Elongated, overg rown, dystrophic, lytic, greater than 3mm thick, discolored and friable with crumbly malodorous subungual debris, with pain on palpation 1-5 B/L
--- OUTSIDE RECORDS SUMMARY | 2023-12-29 14:36 | XMS_ITS | Patient Health Record ---
Author Organization [facility] Address [address] [place] [address] Care Team Providers Care Black Top Raker Name Role Phone Khoa Cagle MD Primary Care Provider Shaq Knutson Unavailable [phone] ALLERGIES No Known Allergies REASON FOR REFERRAL No Information MEDICATIONS Medication SIG (Take, Route, Frequency, Duration) Notes Start Date End Date Status Metoprolol Succinate ER 50 MG TAKE 1 TABLET BY MOUTH DAILY Oral for 60 Active Tadalafil 10 MG TAKE ONE TABLET BY M OUTH EVERY DAY NEEDED FOR SEXUAL ACTIVITY Oral for 90 Active IMMUNIZATIONS Vaccine Route Administration Date Status Comme nts Influenza Unknown 10/07/2017 Administered SOCIAL HISTORY Tobacco Use: Social History Observation Description Date Details (start date - stop date) Never Smoker NA - NA Sex Assigned At : Social History Observation Description Sex Assigned At Unknown Tobacco Use/Smoking Question Answer Notes Patient is a nonsmoker Alcohol Screen Question Answer Notes Did you have a drink contain ing alcohol in the past year? Yes How often did you have a dri nk containing alcohol in the past year? 4 or more times a week (4 points) How many drinks did you have on a typical day when you were drinking in the past year? 1 or 2 drinks (0 point) How often did you have 6 or more drinks on one occasion in the past year? Never (0 point) Points 4 Interpretation Positive PROBLEMS Problem Type ICD Code Onset Dates Problem Status W/U Status Risk SNOMED Code Notes Problem Encounter for screening for malignant neoplasm of colon (Z12.11) Active confirmed 459218821 Problem Preprocedural examination (Z01.818) Active confirmed [id number] Problem History of adenomatous polyp of colon (Z86.010) Active confirmed History of adenomatous polyp of colon (253112724) Problem Colon cancer screening (Z12.11) Active confirmed Colon cancer screening (895015581) Problem Encounter for other preprocedural examination (Z01.818) Active confirmed Pre-procedure evaluation check (024723911) VITAL SIGNS Blood pressure diastolic 00 mm Hg 10/26/2023 Height 72 in 10/26/2023 Blood pressure systolic 00 mm Hg 10/26/2023 Weight 225 lbs 10/26/2023 BMI 30.51 kg/m2 10/26/2023 Encounters Encounter Location Date Provider Diagnosis [facility] [address] [place] [address] 10/26/2023 Shaq Corral History of adenomato us polyp of colon Z86.010 ; Colon cancer screening Z12.11 and Encounter for other preprocedural examination Z01.818 ASSESSMENTS Encounter Date Diagnosis Assessment Notes Treatment Notes Treatment Clinical Notes 10/26/2023 Colon cancer screening (ICD-10 - Z12.11) 10/26/2023 History of adenomatous polyp of colon (ICD-10 - Z86.010) 10/26/2023 Encounter for other preprocedural examination (ICD-10 - Z01.818) PLAN OF TREATMENT Future Test Test Name Order Date COLONOSCOPY 06/12/2018 COLONOSCOPY 10/26/2023 Next Appt Details Provider Name:Shaq Padgett Corral , 02/28/2024 08:20:00 AM, [address] [place] [address] , [place], [place], [id number], Insurance Providers Payer Name Payer Address Payer Phone Subscriber Number Group Number Insured Name Patient Relationship to Insured Coverage Start Date Coverage End Date MEDICARE OF [place] [address] [place] [id number] YIFAN ALMANZA Self - patient is the insured MED[employer] ATTN CLAIMS [address] [place] [phone] [id number] YIFAN ALMANZA Self - patient is the insured MEDICAL (GENERAL) HISTORY Medical History History ICD Code Denies OH,DM,CVA,Lung disease,renal dise ase Neg. screening colonoscopy i n 2006 except for a hyperplastic polyp, sigmoid diverticulosis, and internal hemorrhoids Screening colonoscopy in Sep with removal of a rectal tubular adenoma. He did have some PVCs during the procedure and was referred to cardiology. Irregular heartbeat with PVC s for which he follows up with Dr. Cain. He is going to be scheduled for a heart monitor in the Fall of 2023. Surgical History Surgery Date(Month/Year)
--- OUTSIDE RECORDS SUMMARY | 2023-12-29 14:36 | XMS_ITS ---
Author Organization [facility] Address [address] [place] [address] Care Team Providers Care Medical Care Administrator Name Role Phone Khoa Cagle MD Primary Care Provider Hellen High Unavailable [phone] Allergies No Known Allergies REASON FOR VISIT Pcp- 04/01, Pcp- 04/01, Painful nail(s) aggrevated by shoes causing difficulty standing/walking, Skin Problem Medications Medication SIG (Take, Route, Frequency, Duration) Notes Start Date End Date Status Metoprolol Succinate Active Ciclopirox Olamine 0.77 % 1 application Externally Twice a day for 30 days Active Ciclopirox 0.77 % 1 application to aff ected area Externally Twice a day to effected nails for 30 days Active Social History Tobacco Use: Social History Observation Description Date Details (start date - stop date) Former Smoker NA - NA Tobacco Use/Smoking Question Answer Notes Are you a: former smoker Additional Findings: Tobacco Non-User Current no n-smoker Tobacco use other than smoking: Question Answer Notes Are you an other tobacco user? No Vital Signs Height 6ft in 09/13/2023 Weight 225 lbs 09/13/2023 BMI 30.51 kg/m2 09/13/2023 Encounters Encounter Location Date Provider Diagnosis [facility] [address] [place] [address] 09/13/2023 Hellen Ibarra Tinea unguium B35.1 ; Tinea pedis of both feet B35.3 ; Pain in right toe(s) M79.674 and Pain in left toe(s) M79.675 Assessments Encounter Date Diagnosis (ICD Code) Assessment Notes Treatment Notes Treatment Clinical Notes 09/13/2023 Tinea unguium (ICD-10 - B35.1) 09/13/2023 Tinea pedis of both feet (ICD-10 - B35.3) 09/13/2023 Pain in right toe(s) (ICD-10 - M79.674) 09/13/2023 Pain in left toe(s) (ICD-10 - M79.675) Plan Of Treatment Medication Medication Name Sig Start Date Stop Date Notes Ciclopirox Olamine 0.77 % 1 application Externally Twice a day for 30 days Ciclopirox 0.77 % 1 application to aff ected area Externally Twice a day to effected nails for 30 days Next Appt Details Follow Up: prn, Reason: Procedure Notes * Category Sub-Category Detail [...] chooses, Ciclopirox gel Progress Notes * Adelso TILLEYDOB: (68 yo M)Acc No.[id number]:09/13/2023 Progress Note Patient:?Jarek Piotr bull Sudha Provider:?Hellen Ibarra DPM :1955???Age:68 Y???Sex:Male Fritz e:09/13/2023 Address:[address] [place], [place] [id number] Pcp:Khoa Cagle MD Subjective: * Chief Complaints: * ???Pcp- 04/01Pcp- 04/01Painf ul nail(s) aggrevated by shoes causing difficulty standing/walkingSkin Problem * HPI: ???Painful Nails:?Pt States Last PCP Visit:?Date:?03/29/2023 ???Skin problems:?Nature:?dryness redness scaling.?Location:?B/L .?Course:?improved.?Treatments:?Medication (Ciclopirox Olamine 0.77 Cream).? * ROS:?General/Constitutional:?Nausea?denies, denies, denies, denies.?Vomiting?denies, denies, denies, denies.?Hunger Thirst?denies, denies, denies, denies.?Loss appetite?denies, denies, denies, denies.?Chills?denies, denies, denies, denies.?Fatigue?denies, denies, denies, denies.?Fever?denies, denies, denies, denies.?Night Sweats?denies, denies, denies, denies.?Unexplained weight loss?denies, denies, denies, denies.?Unexplained weight gain?denies, denies, denies, denies.?HEENTM:?Dentures?denies, denies, denies, denies.?Dizziness?denies, denies, denies, denies.?Glasses/contacts?admits, admits, admits, admits.?Retinopathy?denies, denies, denies, denies.?Blurred/double vision?denies, denies, denies, denies.?TMJ?denies, denies, denies, denies.?Discharge/drainage?denies, denies, denies, denies.?Implants?denies, denies, denies, denies.?Sore throat?denies, denies, denies, denies.?Dental implants?denies, denies, denies, denies.?Hard of hearing ?denies, denies, denies, denies.?Difficulty chewing/swallowing/speaking?denies, denies, denies, denies.?Nose bleeds?denies, denies, denies, denies.?Sore mouth?denies, denies, denies, denies.?Respiratory:?On Oxygen?denies, denies, denies, denies.?Pneumonia/pleurisy?denies, denies, denies, denies.?Bronchitis?denies, denies, denies, denies.?Emphysema?denies, denies, denies, denies.?Coughing?denies, denies, denies, denies. Cough blood?denies, denies, denies, denies.?Shortness of breath?denies, denies, denies, denies.?Wheezing?denies, denies, denies, denies.?Cardiovascular:?Pacemaker?denies, denies, denies, denies.?MVP?denies, denies, denies, denies.?WPW?denies, denies, denies, denies.?CHF?denies, denies, denies, denies.?Heart attack?denies, denies, denies, denies.?Septal defect?denies, denies, denies, denies.?Rapid beat?denies, denies, denies, denies.?Chest pain ?denies, denies, denies, denies.?Atrial Fib.?denies, denies, denies, denies.?Murmur/Palpitations?denies, denies, denies, denies.?Gastrointestinal:?Hemorrhoids?denies, denies, denies, denies.?Stomach/Abdominal pain?denies, denies, denies, denies.?Dark blood stool?denies, denies, denies, denies.?Irritable bowel ?denies, denies, denies, denies.?Constipation?denies, denies, denies, denies.?Diarrhea?denies, denies, denies, denies.?Hematology:?Swelling?denies, denies, denies, denies.?Clots?denies, denies, denies, denies.?Varicose Veins?denies, denies, denies, denies.?Bruising?denies, denies, denies, denies.?Bleeding problem?denies, denies, denies, denies.?Genitourinary:?Blood urine?denies, denies, denies, denies.?Frequent/Painfu/urination/bladder control?denies, denies, denies, denies.?Kidney stones?denies, denies, denies, denies.?Infection (UTI)?denies, denies, denies, denies.?Nephropathy denies, denies, denies, denies.?sex trans dis (STD)?denies, denies, denies, denies.?Prostate?denies, denies, denies, denies.?Musculoskeletal:?Hammertoes?denies, denies, denies, denies.?Bunions?denies, denies, denies, denies.?Back Pain?denies, denies, denies, denies.?Muscle Cramps/ Resting?denies, denies, denies, denies.?Muscle cramps / walking?denies, denies, denies, denies.?Generalized aches and pains?denies, denies, denies, denies.?Weakness?denies, denies, denies, denies.?Integ.:?Hawkins?denies, denies, denies, denies.?Scars?denies, denies, denies, denies.?Corns/calluses?denies, denies, denies, denies.?Ingrown nails?denies, denies, denies, denies.?Painful nails?denies, denies, denies, denies. Open Sores?denies, denies, denies, denies.?Rashes?denies, denies, denies, denies.?Neurologic:?Difficulty sleeping?denies, denies, denies, denies.?Brain disorder?denies, denies, denies, denies.?Numbness?denies, denies, denies, denies.?Balance trouble?denies, denies, denies, denies.?Confusion?denies, denies, denies, denies.?Fainting/blackouts?denies, denies, denies, denies.?Tingling?denies, denies, denies, denies.?Tremors?denies, denies, denies, denies.? * Medical History:? * Surgical History:?colonoscop y * Hospitalization/Major Diagno stic Procedure:?Denies Past Hospitalization * Family History:?No Family Hi story documented..? * Social History:?Tobacco Use:?Tobacco Use/Smoking?Are you a:?former smoker ?Additional Findings: Tobacco Non-User?Current non-smoker ?Tobacco use other than smoking?Are you an other tobacco user??No ???Miscellaneous:?Caffeine: yes, frequency:, 1-2 cups some days not everyday. ?no Children. ?Exercise: yes, walking on treadmill. ?Marital status: . ?Occupation: Retired- [employer]. * Medications:?TakingMetoprolo l Succinate Ciclopirox Olamine 0.77 [...] anesthesia, burning, paresthesia, tingling, B/L.?DEEP TENDON REFLEXES:?Achilles, 03/12, B/L.?Vascular: ?DP PULSES:?04/09, B/L.?PT PULSES:?04/09, B/L.?CAPILLARY FILL TIME:?immediate, all digits, B/L.?SKIN TEMPERTURE GRADIENT OF THE LOWER EXTERMITIES:?warm to cool, proximal to distal, B/L.?HAIR GROWTH/TEXTURE/ELASTICITY/TURGOR:?normal, B/L.?PIGMENTATION:?normal, B/L.?EDEMA:?absent, B/L.?Dermatologic: ?SKIN FINDINGS:?Skin shows approximately __98_% LESS sign(s) of, erythema, scaling, in a moccasin fashion, no fissure(s) present, B/L.?Orthopedic: ?MUSCLE STRENGTH:?5/5 all groups in a symmetrical fashion , B/L.?Nails: ?NAILS are:?Elongated, overgrown, dystrophic, lytic, greater than 3mm thick, discolored and friable with crumbly malodorous subungual debris, with pain on palpation 1-5 B/L.? Assessment: * Assessment: 1.?Tinea unguium - B35.1?2.? Pain in right toe(s) - M79.674?3.?Tinea pedis of both feet - B35.3 (Primary), Acute problem, Uncomplicated (3),Rx drug management (4)?4.?Pain in left toe(s) - M79.675? Plan: * [...] necessary. Patient chooses, Ciclopirox gel.? * Procedure Codes:?89915 DEBRI DE NAIL, 6 OR MORE, Modifiers: XS * Preventive Medicine:? ??Counseling:?Discussion:?-12: Office or other outpatient visit for the evaluation and management of an established patient, which required a medically appropriate history and/or examination and STRAIGHTFORWARD level of MEDICAL DECISION MAKING, 1 SELF-LIMITED OR MINOR PROBLEM, MINIMAL- NO AMOUNT/COMPLEXITY OF DATA TO BE REVIEWED/ANALYZED, AND MINIMAL RISK OF COMPLICATION/MORBIDITY. The visit on the day of the [...] the rx cream as directed.? * Follow Up:?prn * Images: * Sign off status: Completed true * Provider:Elba Ibarra DPM Date:?08/2023 Generated for Rafita willson/Sophia/Caio on:?12/29/2023 02:35 PM EST History and Physical [...] Dermatologic SKIN FINDINGS: Skin shows appro ximately __98_% LESS sign(s) of, erythema, scaling, in a [...]
--- OUTSIDE RECORDS SUMMARY | 2023-12-29 14:36 | XMS_ITS ---
Author Organization [facility] Address [address] [place] [address] Care Team Providers Care Swimming Pool Installer And Servicer Name Role Phone Khoa Cagle MD Primary Care Provider Carly sheppard CorralShaq Unavailable [phone] ALLERGIES No Known Allergies REASON FOR VISIT Patient presents today for a colon screening MEDICATIONS Medication SIG (Take, Route, Frequency, Duration) Notes Start Date End Date Status Metoprolol Succinate ER 50 MG TAKE 1 TABLET BY MOUTH DAILY Oral for 60 Active Tadalafil 10 MG TAKE ONE TABLET BY M OUTH EVERY DAY NEEDED FOR SEXUAL ACTIVITY Oral for 90 Active SOCIAL HISTORY Tobacco Use: Social History Observation [...] W/U Status Risk SNOMED Code Notes Problem History of adenomatous polyp of colon (Z86.010) Active confirmed History of adenomatous polyp of colon (768790933) Problem Colon cancer screening (Z12.11) Active confirmed Colon cancer screening (237470036) Problem Encounter for other preprocedural examination (Z01.818) Active confirmed Pre-procedure evaluation check (153605577) VITAL SIGNS BMI 30.51 kg/m2 10/26/2023 Blood pressure systolic 00 mm Hg 10/26/19 24 Blood pressure diastolic 00 mm Hg 024 Height 72 in 10/26/2023 Weight 225 lbs 10/26/2023 Encounters Encounter Location Date Provider Diagnosis [facility] [address] [place] [address] 10/26/2023 Shaq Corral History of adenomato us polyp of colon Z86.010 ; Colon cancer screening Z12.11 and Encounter for other preprocedural examination Z01.818 ASSESSMENTS Encounter Date Diagnosis Assessment Notes Treatment Notes Treatment Clinical Notes 10/26/2023 History of adenomatous polyp of colon (ICD-10 - Z86.010) 10/26/2023 Colon cancer screening (ICD-10 - Z12.11) 10/26/2023 Encounter for other preprocedural examination (ICD-10 - Z01.818) PLAN OF TREATMENT Future Test Test Name Order Date COLONOSCOPY 10/26/2023 Next Appt Details Follow Up: prn, Reason: Provider Name:Shaq Corral , 02/28/2024 08:20:00 AM, [address] [place] [address] , [place], [place], [id number], Progress Notes * Examination Category Sub-Category Detail Notes General Examination GENERAL APPEARANCE: pleasant , well nourished, well developed, in no acute distress HEAD: EYES: sclera non-icteric EARS: NOSE: THROAT: NECK/THYROID: no cervical lymphade nopathy, neck supple HEART: S1, S2 normal CHEST: LUNGS: clear to auscultatio n bilaterally ABDOMEN: normal bowel sounds, no guarding or rigidity, no guarding or rigidity, no masses palpable, soft, nontender, nondistended NEUROLOGIC: alert and oriented SKIN: nonjaundiced, no spi tere angiomata EXTREMITIES: no edema PERIPHERAL PULSES: BACK: BREASTS: MUSCULOSKELETAL: MALE GENITOURINARY: LYMPH NODES: RECTAL EXAM: FEMALE GENITOURINARY: ORAL CAVITY: mucosa moist
--- OUTSIDE RECORDS SUMMARY | 2023-12-29 14:36 | XMS_ITS ---
Author Organization [facility] [place] Address [address] [facility] [place] [address] Care Team Providers Care Solderer Production Line Name Role Phone Khoa Cagle MD Primary Care Provider Jonia Hellen Quach Unavailable [phone] Allergies No Known Allergies REASON FOR VISIT Pcp- 04/01, Painful nail(s) aggrevated by shoes causing difficulty standing/walking, Skin Problem Medications Medication SIG (Take, Route, Frequency, Duration) Notes Start Date End Date Status Ciclopirox 0.77 % 1 application to aff ected area Externally Twice a day to effected nails for 30 days 02/10/2023 Active Ciclopirox Olamine 0.77 % 1 application Externally Twice a day for 30 days Active Metoprolol Succinate Active Social History Tobacco Use: Social History [...] Are you an other tobacco user? No s mokes pot Vital Signs Height 6ft in 04/14/2023 Weight 225 lbs 04/14/2023 BMI 30.51 kg/m2 04/14/2023 Encounters Encounter Location Date Provider Diagnosis [facility] [address] [place] [address] 04/14/2023 Hellen Ibarra Tinea unguium B35.1 ; Tinea pedis of both feet B35.3 ; Pain in right toe(s) M79.674 and Pain in left toe(s) M79.675 Assessments Encounter Date Diagnosis (ICD Code) Assessment Notes Treatment Notes Treatment Clinical Notes 04/14/2023 Tinea unguium (ICD-10 - B35.1) 04/14/2023 Tinea pedis of both feet (ICD-10 - B35.3) 04/14/2023 Pain in right toe(s) (ICD-10 - M79.674) 04/14/2023 Pain in left toe(s) (ICD-10 - M79.675) Plan Of Treatment Next Appt Details Follow Up: 2 Months, [...] any petechial bleeding as necessary. Patient chooses, no pharmaceutical tx (93323) Progress Notes * Adelso ALMANZADOB: (68 yo M)Acc No.[id number]:04/14/2023 Progress Note Patient:?Piotr Almanza Provider:?Hellen Ibarra DPM :1955???Age:68 Y???Sex:Male Fritz e:04/14/2023 Address:[address] [place], [place] [id number] Pcp:Khoa Cagle MD Subjective: * Chief Complaints: * ???Pcp- 04/01Painful nail(s) aggrevated by shoes causing difficulty standing/walkingSkin Problem * HPI: ???Painful Nails:?Pt States Last PCP Visit:?Date:?03/29/2023 ???Skin problems:?Nature:?dryness redness scaling.?Location:?B/L .?Course:?improved.?Treatments:?Medication (Ciclopirox Olamine 0.77 Cream).? * ROS:?General/Constitutional:?Nausea?denies, denies.?Vomiting?denies, denies.?Hunger Thirst?denies, denies.?Loss appetite?denies, denies.?Chills?denies, denies.?Fatigue?denies, denies.?Fever?denies, denies.?Night Sweats denies, denies.?Unexplained weight loss?denies, denies.?Unexplained weight gain?denies, denies.?HEENTM:?Dentures?denies, denies.?Dizziness?denies, denies.?Glasses/contacts?admits, admits.?Retinopathy?denies, denies.?Blurred/double vision?denies, denies.?TMJ?denies, denies.?Discharge/drainage?denies, denies.?Implants?denies, denies.?Sore throat?denies, denies.?Dental implants?denies, denies.?Hard of hearing ?denies, denies.?Difficulty chewing/swallowing/speaking?denies, denies.?Nose bleeds?denies, denies.?Sore mouth?denies, denies.?Respiratory:?On Oxygen?denies, denies.?Pneumonia/pleurisy?denies, denies.?Bronchitis?denies, denies.?Emphysema?denies, denies.?Coughing?denies, denies.?Cough blood?denies, denies.?Shortness of breath?denies, denies.?Wheezing?denies, denies.?Cardiovascular:?Pacemaker?denies, denies.?MVP?denies, denies.?WPW?denies, denies.?CHF?denies, denies.?Heart attack?denies, denies.?Septal defect?denies, denies.?Rapid beat?denies, denies.?Chest pain ?denies, denies.?Atrial Fib.?denies, denies.?Murmur/Palpitations?denies, denies.?Gastrointestinal:?Hemorrhoids?denies, denies.?Stomach/Abdominal pain?denies, denies.?Dark blood stool?denies, denies.?Irritable bowel ?denies, denies.?Constipation?denies, denies.?Diarrhea?denies, denies.?Hematology:?Swelling?denies, denies.?Clots?denies, denies.?Varicose Veins?denies, denies.?Bruising?denies, denies.?Bleeding problem?denies, denies.?Genitourinary:?Blood urine?denies, denies.?Frequent/Painfu/urination/bladder control?denies, denies.?Kidney stones?denies, denies.?Infection (UTI)?denies, denies.?Nephropathy?denies, denies.?sex trans dis (STD)?denies, denies.?Prostate?denies, denies.?Musculoskeletal:?Hammertoes?denies, denies.?Bunions?denies, denies.?Back Pain?denies, denies.?Muscle Cramps/ Resting?denies, denies.?Muscle cramps / walking?denies, denies.?Generalized aches and pains?denies, denies.?Weakness?denies, denies.?Integ.:?Hawkins?denies, denies.?Scars?denies, denies.?Corns/calluses?denies, denies.?Ingrown nails?denies, denies.?Painful nails?denies, denies.?Open Sores?denies, denies.?Rashes?denies, denies.?Neurologic:?Difficulty sleeping?denies, denies.?Brain disorder?denies, denies.?Numbness?denies, denies.?Balance trouble?denies, denies.?Confusion?denies, denies.?Fainting/blackouts?denies, denies.?Tingling?denies, denies.?Tremors?denies, denies.? * Medical History:? * Surgical History:?colonoscop y * Hospitalization/Major Diagno stic Procedure:?Denies Past Hospitalization * Family History:?No Family Hi story documented..? * Social History:?Tobacco Use:?Tobacco Use/Smoking?Are you a:?former smoker ?Additional Findings: Tobacco Non-User?Current non-smoker ?Tobacco use other than smoking?Are you an other tobacco user??No smokes pot ???Drugs/Alcohol:?Drugs?Have you used drugs other than those [...] ?Points?8 ?Interpretation?Positive ???Miscellaneous:?Caffeine: yes, frequency:, 1-2 cups per day. ?no Children. ?Exercise: yes, walking on treadmill. ?Marital status: . ?Occupation: Retired- [employer]. * Medications:?TakingMetoprolo l Succinate Ciclopirox Olamine 0.77 [...] anesthesia, burning, paresthesia, tingling, B/L.?DEEP TENDON REFLEXES:?Achilles, 2/4, B/L.?Vascular: ?DP PULSES:?3/4, B/L.?PT PULSES:?3/4, B/L.?CAPILLARY FILL TIME:?immediate, all digits, B/L.?SKIN TEMPERTURE [...] any petechial bleeding as necessary. Patient chooses, no pharmaceutical tx (58243).? * Procedure Codes:?29668 DEBRI DE NAIL, 6 OR MORE, Modifiers: [...] * Sign off status: Completed true * Provider:?Hellen Ibarra DPM Date:?09/2023 Generated for Rafita willson/Sophia/Caio on:?12/29/2023 02:35 PM [...]
--- OUTSIDE RECORDS SUMMARY | 2023-12-29 14:36 | XMS_ITS | Patient Health Record ---
Author Organization [facility] Address [address] [place] [address] Care Team Providers Care Mailing Section Clerk Name Role Phone Khoa Cagle MD Primary Care Provider Hellen High Unavailable [phone] Allergies No Known Allergies Reason For Referral No Information Medications Medication SIG (Take, Route, Frequency, Duration) [...] 09/13/2023 Encounters Encounter Location Date Provider Diagnosis [facility] [address] [place] [address] 02/10/2023 Hellen Ibarra Tinea unguium B35.1 ; Tinea pedis of both feet B35.3 ; Pain in right toe(s) M79.674 and Pain in left toe(s) M79.[address] [address] 04/14/2023 Hellen Perica Tinea unguium B35.1 ; Tinea pedis of both feet B35.3 ; Pain in right toe(s) M79.674 and Pain in left toe(s) M79.[address] [address] 06/23/2023 Hellen Perica Tinea unguium B35.1 ; Tinea pedis of both feet B35.3 ; Pain in right toe(s) M79.674 and Pain in left toe(s) M79.[address] [address] 09/13/2023 Hellen Perica Tinea unguium B35.1 ; Tinea pedis of both feet B35.3 ; Pain in right toe(s) M79.674 and Pain in left toe(s) M79.675 Assessments Encounter Date Diagnosis (ICD Code) Assessment Notes Treatment Notes Treatment Clinical Notes 02/10/2023 Tinea unguium (ICD-10 - B35.1) 02/10/2023 Tinea pedis of both feet (ICD-10 - B35.3) 04/14/2023 Tinea unguium (ICD-10 - B35.1) 06/23/2023 Tinea unguium (ICD-10 - B35.1) 09/13/2023 Tinea unguium (ICD-10 - B35.1) 04/14/2023 Tinea pedis of both feet (ICD-10 - B35.3) 09/13/2023 Pain in right toe(s) (ICD-10 - M79.674) 09/13/2023 Tinea pedis of both feet (ICD-10 - B35.3) 06/23/2023 Tinea pedis of both feet (ICD-10 - B35.3) 02/10/2023 Pain in right toe(s) (ICD-10 - M79.674) 04/14/2023 Pain in right toe(s) (ICD-10 - M79.674) 02/10/2023 Pain in left toe(s) (ICD-10 - M79.675) 06/23/2023 Pain in right toe(s) (ICD-10 - M79.674) 09/13/2023 Pain in left toe(s) (ICD-10 - M79.675) 04/14/2023 Pain in left toe(s) (ICD-10 - M79.675) 06/23/2023 Pain in left toe(s) (ICD-10 - M79.675) Plan Of Treatment No Information Insurance Providers Payer Name Payer Address Payer Phone Subscriber Number Group Number Insured Name Patient Relationship to Insured Coverage Start Date Coverage End Date Medicare National [employer] [address] [place] [phone] [id number] Adelso Tilley Self - patient is the insured Med [facility] [address] [place] [address] [phone] [id number] Adelso Tilley Self - patient is the insured Medical (General) History Medical History History ICD Code Irregular heartbeat Surgical History Surgery Date(Month/Year) colonoscopy
== END 2023-12-28 08:51 | disposition home or self-care (01) ==
LOC: HO.HUSH 08:33
PROVIDERS: PCP Internal Medicine; Visit Provider Urology
DX: N52.9 Male erectile dysfunction, unspecified (principal)
CPT/HCPCS: 99213

== ENCOUNTER → 2023-12-28 08:33 | Outpatient (BNVA) | payer MEDICARE, SELFPAY | PROVIDERS: PCP Internal Medicine; Visit Provider Urology | DX: N52.9 Male erectile dysfunction, unspecified (principal) | CPT/HCPCS: 99212 ==

== ENCOUNTER 2024-01-23 10:09 | Outpatient (REF) | payer MEDICARE, SELFPAY ==
--- OUTSIDE RECORDS SUMMARY | 2024-01-23 10:13 | XMS_ITS ---
Author Organization [facility] Address [address] [place] [address] Care Team Providers Care Network Associate Name Role Phone Khoa Cagle MD Primary Care Provider Hellen High Unavailable [phone] Allergies No Known Allergies REASON FOR VISIT [...] 09/13/2023 Encounters Encounter Location Date Provider Diagnosis [facility] [address] [place] [address] 09/13/2023 Hellen Ibarra Tinea unguium B35.1 ; [...] * Adelso TILLEY JDOB: (68 yo M)Acc No.[id number]:09/13/2023 Progress Note Patient:?TilleyPiotr mata Provider:?Hellen Ibarra DPM :1955???Age:68 Y???Sex:Male Fritz e:09/13/2023 Address:[address] [place], [place] [address] Pcp:Khoa Cagle MD Subjective: * Chief Complaints: [...] on treadmill. ?Marital status: . ?Occupation: Retired- [employer]. * Medications:?TakingMetoprolo l Succinate Ciclopirox Olamine 0.77 [...] necessary. Patient chooses, Ciclopirox gel.? * Procedure Codes:?07907 DEBRI DE NAIL, 6 OR MORE, Modifiers: [...] Provider:Elba Ibarra DPM Date:?08/2023 Generated for Rafita willson/Sophia/Khushbooranbryanitting on:?01/23/2024 10:13 AM EST History and Physical Notes * HPI [...]
--- OUTSIDE RECORDS SUMMARY | 2024-01-23 10:13 | XMS_ITS | Patient Health Record ---
Author Organization [facility] Address [address] [place] [address] Care Team Providers Care Seismograph Supervisor Name Role Phone Khoa Cagle MD Primary Care Provider Hellen High Unavailable [phone] Allergies No Known Allergies Reason For Referral [...] 09/13/2023 Encounters Encounter Location Date Provider Diagnosis [facility] [address] [place] [address] 02/10/2023 Hellen Ibarra Tinea unguium B35.1 ; Tinea pedis of both feet B35.3 ; Pain in right toe(s) M79.674 and Pain in left toe(s) M79.[address] [address] 04/14/2023 Hellen Perica Tinea unguium B35.1 ; Tinea pedis of both feet B35.3 ; Pain in right toe(s) M79.674 and Pain in left toe(s) M79.[address] [address] 06/23/2023 Hellen Perica Tinea unguium B35.1 ; Tinea pedis of both feet B35.3 ; Pain in right toe(s) M79.674 and Pain in left toe(s) M79.[address] [address] 09/13/2023 Hellen Perica Tinea unguium B35.1 ; [...] [employer] [address] [place] [address] [id number] Adelso Tilley Self - patient is the insured Med Blue [facility] [address] [place] [address] [phone] [id number] Adelso Tilley Self - patient is the insured Medical (General) History Medical History History ICD Code Irregular heartbeat Surgical History Surgery Date(Month/Year) colonoscopy
--- OUTSIDE RECORDS SUMMARY | 2024-01-23 10:13 | XMS_ITS ---
Author Organization [facility] [place] [place] Address [address] [facility] [place] [address] Care Team Providers Care Bus Driver/Monitor Name Role Phone Khoa Cagle MD Primary Care Provider Jonia Hellen Quach Unavailable [phone] Allergies No Known Allergies REASON FOR VISIT [...] 04/14/2023 Encounters Encounter Location Date Provider Diagnosis [facility] [place] [address] [place] [address] 04/14/2023 Hellen Ibarra Tinea unguium B35.1 ; [...] as necessary. Patient chooses, no pharmaceutical tx (35179) Progress Notes * Adelso ALMANZADOB: (68 yo M)Acc No.[id number]:04/14/2023 Progress Note Patient:?Piotr Almanza Provider:?Hellen Ibarra DPM :1955???Age:68 Y???Sex:Male Fritz e:04/14/2023 Address:[address] [place], [place] [id number] Pcp:Khoa Cagle MD Subjective: * Chief Complaints: [...] on treadmill. ?Marital status: . ?Occupation: Retired- [employer]. * Medications:?TakingMetoprolo l Succinate Ciclopirox Olamine 0.77 [...] as necessary. Patient chooses, no pharmaceutical tx (52252).? * Procedure Codes:?45002 DEBRI DE NAIL, 6 OR MORE, Modifiers: [...] Ibarra DPM Date:?09/2023 Generated for Rafita willson/Sophia/Caio on:?01/23/2024 10:13 AM EST History and Physical [...]
--- OUTSIDE RECORDS SUMMARY | 2024-01-23 10:13 | XMS_ITS | Patient Health Record ---
Author Organization [facility] Address [address] [place] [address] Care Team Providers Care Special Forces Warrant Officer Name Role Phone Khoa Cagle MD Primary Care Provider Shaq Knutson Unavailable [phone] ALLERGIES No Known Allergies REASON FOR REFERRAL [...] malignant neoplasm of colon (Z12.11) Active confirmed 332735315 Problem Preprocedural examination (Z01.818) Active confirmed [id number] Problem History of adenomatous polyp of colon (Z86.010) Active confirmed History of adenomatous polyp of colon (577838248) Problem Colon cancer screening (Z12.11) Active confirmed Colon cancer screening (540840086) Problem Encounter for other preprocedural examination (Z01.818) Active confirmed Pre-procedure evaluation check (123942430) VITAL SIGNS Blood pressure diastolic 00 mm Hg 10/26/2023 Height 72 in 10/26/2023 Blood pressure systolic 00 mm Hg 10/26/2023 Weight 225 lbs 10/26/2023 BMI 30.51 kg/m2 10/26/2023 Encounters Encounter Location Date Provider Diagnosis [facility] [address] [place] [address] 10/26/2023 Shaq Corral History of adenomato us [...] Name:Shaq Padgett Corral , 02/28/2024 08:20:00 AM, [address] [place] [address] , [place], [place], [phone], Insurance Providers Payer Name Payer Address Payer Phone Subscriber Number Group Number Insured Name Patient Relationship to Insured Coverage Start Date Coverage End Date MEDICARE OF [place] [address] [place] [id number] YIFAN ALMANZA Self - patient is the insured MED[employer] ATTN CLAIMS [address] [place] [phone] [id number] YIFAN ALMANZA Self - patient is the insured MEDICAL (GENERAL) HISTORY Medical History History ICD Code Denies [place],DM,CVA,Lung disease,renal dise ase Neg. screening colonoscopy i [...]
--- OUTSIDE RECORDS SUMMARY | 2024-01-23 10:13 | XMS_ITS ---
Author Organization [facility] Donavan shelby [place] Address [address] [facility] [place] [address] Care Team Providers Care Ovens Supervisor Name Role Phone Khoa Cagle MD Primary Care Provider Jonia Hellen Quach Unavailable [phone] Allergies No Known Allergies REASON FOR VISIT [...] 06/23/2023 Encounters Encounter Location Date Provider Diagnosis [facility] [address] [place] [address] 06/23/2023 Hellen Ibarra Tinea unguium B35.1 ; [...] Notes * Adelso ALMANZADOB: (68 yo M)Acc No.[id number]:06/23/2023 Progress Note Patient:?Piotr Almanza Provider:?Hellen Ibarra DPM :1955???Age:68 Y???Sex:Male Fritz e:06/23/2023 Address:[address] [place], [place] [phone] Pcp:Khoa Cagle MD Subjective: * Chief Complaints: [...] on treadmill. ?Marital status: . ?Occupation: Retired- [employer]. * Medications:?TakingMetoprolo l Succinate Ciclopirox Olamine 0.77 [...] necessary. Patient chooses, Ciclopirox gel.? * Procedure Codes:?18760 DEBRI DE NAIL, 6 OR MORE, Modifiers: [...] Ibarra, DPM Date:? Generated for Printi demetris/Sophia/eTransmitting on:?01/23/2024 10:13 AM EST History and Physical [...]
--- OUTSIDE RECORDS SUMMARY | 2024-01-23 10:13 | XMS_ITS ---
Author Organization [facility] Address [address] [place] [address] Care Team Providers Care Generation Technologist Name Role Phone Khoa Cagle MD Primary Care Provider Carly sheppard CorralShaq Unavailable [phone] ALLERGIES No Known Allergies REASON FOR VISIT [...] confirmed History of adenomatous polyp of colon (408416519) Problem Colon cancer screening (Z12.11) Active confirmed Colon cancer screening (670882431) Problem Encounter for other preprocedural examination (Z01.818) Active confirmed Pre-procedure evaluation check (480741950) VITAL SIGNS BMI 30.51 kg/m2 10/26/2023 Blood pressure systolic 00 mm Hg 10/26/19 24 Blood pressure diastolic 00 mm Hg 024 Height 72 in 10/26/2023 Weight 225 lbs 10/26/2023 Encounters Encounter Location Date Provider Diagnosis [facility] [address] [place] [address] 10/26/2023 Shaq Corral History of adenomato us [...] Provider Name:Shaq Corral , 02/28/2024 08:20:00 AM, [address] [place] [address] , [place], [place], [phone], Progress Notes * Examination Category Sub-Category Detail [...]
[2024-01-23 10:52] LABS: MANUAL DIFF FLAG NO
[2024-01-23 10:55] LABS: Appearance Urine Clear; Color Urine Yellow; Glucose Urine UA Negative (Negative); Leukocyte Esterase Urine Negative (Negative); Nitrite Urine Negative (Negative); PH 5.5 (5.0-9.0); Specific Gravity - Urine >= 1.030 (1.005-1.025); Urine Blood Negative (Negative); Urine Ketones Trace mg/dL (Negative); Urine Protein Trace mg/dL (Neg-Trace)
[2024-01-23 10:59] LABS: Basophils Absolute Auto 0.1 X10*3/uL (0.0-0.2); Basophils Percent Auto 0.7 % (0-2); Eosinophils Absolute Auto 0.4 X10*3/uL (0.0-0.4); Eosinophils Percent Auto 3.2 % (0-4); Hematocrit 44.1 % (42.0-52.0); Hemoglobin 14.9 g/dl (14.0-18.0); Imm Gran Abs Auto 0.07 X10*3/uL (0.00-0.03); Imm Gran Pct Auto 0.6 % (0.0-0.4); Lymphocytes Absolute Auto 2.1 X10*3/uL (1.2-4.9); Mean Corpuscular HGB Conc 33.8 g/dl (31.0-36.0); Mean Corpuscular Hemoglobin 33.3 pg (27.0-33.0); Mean Corpuscular Volume 98.7 fL (80.0-98.0); Mean Platelet Volume 10.4 fL (9.4-12.4); Monocytes Absolute Auto 0.8 X10*3/uL (0.1-1.2); Monocytes Percent Auto 6.6 % (2-11); Neutrophils Absolute Auto 8.4 x10*3/uL (2.0-8.3); Neutrophils Percent Auto 70.9 % (45-73); Platelet Count 221 X10*3/uL (160-400); Red Blood Count 4.47 X10*6/uL (4.60-5.80); Red Cell Distribution Width 13.2 % (11.0-16.0); White Blood Count 11.9 X10*3/uL (4.8-10.8)
[2024-01-23 11:17] LABS: Alanine Aminotransferase 20 U/L (0-40); Albumin Level 3.9 g/dL (3.5-5.0); Alkaline Phosphatase 69 U/L (39-117); Anion Gap 10 (12-20); Aspartate Amino Transferase 26 U/L (5-37); Bilirubin Total 0.7 mg/dL (0.0-1.0); Blood Urea Nitrogen 18 mg/dL (9-16); Calcium 8.7 mg/dL (8.4-10.2); Carbon Dioxide 29 mmol/L (22-29); Chloride 107 mmol/L (96-108); Cholesterol 173 mg/dL (<200); Estimated Glomerular Filt Rate > 60; Glucose Fasting 104 mg/dL (60-99); HDL Cholesterol 67 mg/dL (>40); LDL Cholesterol Calculated 95 mg/dL (<100); Potassium 4.6 mmol/L (3.3-5.1); Sodium 141 mmol/L (135-145); Total Protein 6.9 g/dL (6.5-8.0); Triglycerides 57 mg/dL (<150)
[2024-01-23 11:36] LABS: Prostate Specific Antigen Scr 1.14 ng/mL (<0.05-4.0)
== END 2024-01-23 10:10 | disposition home or self-care (01) ==
LOC: HO.10HDL 10:09
PROVIDERS: Visit Provider Internal Medicine
DX: Z12.5 Encounter for screening for malignant neoplasm of prostate (principal); I10 Essential (primary) hypertension; Z87.891 Personal history of nicotine dependence; Z86.0100 Personal history of colon polyps, unspecified
CPT/HCPCS: 36415; 80053; 80061; 81003; 84153; 85025

== ENCOUNTER 2024-02-28 06:45 | Day surgery (SDC) | payer MEDICARE, SELFPAY ==
--- OUTSIDE RECORDS SUMMARY | 2024-01-17 12:57 | XMS_ITS | Patient Health Record ---
Author Organization [facility] Address [address] [place] [address] Care Team Providers Care Elephant Tamer Name Role Phone Khoa Cagle MD Primary Care Provider Shaq Knutson Unavailable [phone] ALLERGIES No Known Allergies REASON FOR REFERRAL [...] malignant neoplasm of colon (Z12.11) Active confirmed 419999706 Problem Preprocedural examination (Z01.818) Active confirmed [id number] Problem History of adenomatous polyp of colon (Z86.010) Active confirmed History of adenomatous polyp of colon (029599503) Problem Colon cancer screening (Z12.11) Active confirmed Colon cancer screening (853867358) Problem Encounter for other preprocedural examination (Z01.818) Active confirmed Pre-procedure evaluation check (628841380) VITAL SIGNS Blood pressure diastolic 00 mm Hg 10/26/2023 Height 72 in 10/26/2023 Blood pressure systolic 00 mm Hg 10/26/2023 Weight 225 lbs 10/26/2023 BMI 30.51 kg/m2 10/26/2023 Encounters Encounter Location Date Provider Diagnosis [facility] [address] [place] [address] 10/26/2023 Shaq Corral History of adenomato us [...] Name:Shaq Padgett Corral , 02/28/2024 08:20:00 AM, [address] [place] [address] , [place], [place], [id number], Insurance Providers Payer Name Payer Address Payer Phone Subscriber Number Group Number Insured Name Patient Relationship to Insured Coverage Start Date Coverage End Date MEDICARE OF [place] [address] [place] [id number] YIFAN ALMANZA Self - patient is the insured MED[employer] ATT[employer] CLAIMS [address] [place] [phone] [id number] YIFAN ALMANZA Self - patient is the insured MEDICAL (GENERAL) HISTORY Medical History History ICD Code Denies MS,DM,CVA,Lung disease,renal dise ase Neg. screening colonoscopy i [...]
--- OUTSIDE RECORDS SUMMARY | 2024-01-17 12:57 | XMS_ITS ---
[facility] Organization [facility] [place] Address [address] [facility] [place] [address] Care Team Providers Care Sheriff Officer Name Role Phone Khoa Cagle MD Primary Care Provider Jonia Hellen Quach Unavailable [phone] Allergies No Known Allergies REASON FOR VISIT [...] 04/14/2023 Encounters Encounter Location Date Provider Diagnosis [facility] [address] [place] [address] 04/14/2023 Hellen Ibarra Tinea unguium B35.1 ; Tinea pedis of both feet B35.3 ; Pain in right toe(s) M79.674 and Pain in left toe(s) M79.675 Assessments Encounter Date Diagnosis (ICD Code) Assessment Notes Treatment Notes Treatment Clinical Notes Section Notes 04/14/2023 Tinea unguium (ICD-10 - B35.1) [...] as necessary. Patient chooses, no pharmaceutical tx (99232) Progress Notes * Adelso ALMANZADOB: (68 yo M)Acc No.[id number]:04/14/2023 Progress Note Patient:?Piotr Almanza Provider:?Hellen Ibarra DPM :1955???Age:68 Y???Sex:Male Fritz e:04/14/2023 Address:[address] [place], [place] [id number] Pcp:Khoa Cagle MD Subjective: * Chief Complaints: [...] on treadmill. ?Marital status: . ?Occupation: Retired- [employer]. * Medications:?TakingMetoprolo l Succinate Ciclopirox Olamine 0.77 [...] as necessary. Patient chooses, no pharmaceutical tx (25332).? * Procedure Codes:?69495 DEBRI DE NAIL, 6 OR MORE, Modifiers: [...] Ibarra DPM Date:?09/2023 Generated for Rafita willson/Sophia/Caio on:?01/17/2024 12:57 PM EST History and Physical Notes * HPI (History of Present Illness) Category Sub-Category Detail Notes Category Not es Painful Nails Pt States Last PCP Visit: Date:: 03/29/2023 Skin problems Nature: dryness redness scaling Location: B/L Course: improved Treatments: Medication (Ciclopir ox Olamine 0.77 Cream) Examination Category Sub-Category Detail Notes Category Not es Neurological SENSORY: Neurological exa m reveals intact [...] MUSCLE STRENGTH: 5/5 all groups in a symm etrical fashion , B/L General Examination GENERAL APPEARANCE: [...]
--- OUTSIDE RECORDS SUMMARY | 2024-01-17 12:57 | XMS_ITS ---
Author Organization [facility] Address [address] [place] [address] Care Team Providers Care Physician Primary Care Sports Medicine Name Role Phone Khoa Cagle MD Primary Care Provider Hellen High Unavailable [phone] Allergies No Known Allergies REASON FOR VISIT [...] 09/13/2023 Encounters Encounter Location Date Provider Diagnosis [facility] [address] [place] [address] 09/13/2023 Hellen Ibarra Tinea unguium B35.1 ; Tinea pedis of both feet B35.3 ; Pain in right toe(s) M79.674 and Pain in left toe(s) M79.675 Assessments Encounter Date Diagnosis (ICD Code) Assessment Notes Treatment Notes Treatment Clinical Notes Section Notes 09/13/2023 Tinea unguium (ICD-10 - B35.1) [...] chooses, Ciclopirox gel Progress Notes * Adelso TILLEY JDOB: (68 yo M)Acc No.[id number]:09/13/2023 Progress Note Patient:?TilleyPiotr mata Provider:?Hellen Ibarra DPM :1955???Age:68 Y???Sex:Male Fritz e:09/13/2023 Address:[address] [place], [place] [address] Pcp:Khoa Cagle MD Subjective: * Chief Complaints: [...] on treadmill. ?Marital status: . ?Occupation: Retired- [employer]. * Medications:?TakingMetoprolo l Succinate Ciclopirox Olamine 0.77 [...] necessary. Patient chooses, Ciclopirox gel.? * Procedure Codes:?15008 DEBRI DE NAIL, 6 OR MORE, Modifiers: [...] Provider:Elba Ibarra DPM Date:?08/2023 Generated for Rafita willson/Sophia/Khushbooraninck on:?01/17/2024 12:57 PM EST History and Physical [...]
--- OUTSIDE RECORDS SUMMARY | 2024-01-17 12:57 | XMS_ITS ---
Author Organization [facility] Address [address] [place] [address] Care Team Providers Care Peer Support Specialist Name Role Phone Khoa Cagle MD Primary Care Provider Carly sheppard CorralShaq Unavailable [phone] ALLERGIES No Known Allergies REASON FOR VISIT [...] confirmed History of adenomatous polyp of colon (711967900) Problem Colon cancer screening (Z12.11) Active confirmed Colon cancer screening (546238742) Problem Encounter for other preprocedural examination (Z01.818) Active confirmed Pre-procedure evaluation check (759600168) VITAL SIGNS BMI 30.51 kg/m2 10/26/2023 Blood pressure systolic 00 mm Hg 10/26/19 24 Blood pressure diastolic 00 mm Hg 024 Height 72 in 10/26/2023 Weight 225 lbs 10/26/2023 Encounters Encounter Location Date Provider Diagnosis [facility] [address] [place] [address] 10/26/2023 Shaq Corral History of adenomato us [...] Provider Name:Shaq Corral , 02/28/2024 08:20:00 AM, [address] [place] [address] , [place], [place], [phone], Progress Notes * Examination Category Sub-Category Detail [...]
--- OUTSIDE RECORDS SUMMARY | 2024-01-17 12:57 | XMS_ITS ---
Author Organization [facility] Donavan shelby [place] Address [address] [facility] [place] [address] Care Team Providers Care Bed And Breakfast Cook Name Role Phone Khoa Cagle MD Primary Care Provider Jonia Hellen Quach Unavailable [phone] Allergies No Known Allergies REASON FOR VISIT [...] 06/23/2023 Encounters Encounter Location Date Provider Diagnosis [facility] [place] [address] [place] [address] 06/23/2023 Hellen Ibarra Tinea unguium B35.1 ; Tinea pedis of both feet B35.3 ; Pain in right toe(s) M79.674 and Pain in left toe(s) M79.675 Assessments Encounter Date Diagnosis (ICD Code) Assessment Notes Treatment Notes Treatment Clinical Notes Section Notes 06/23/2023 Tinea unguium (ICD-10 - B35.1) [...] Notes * Adelso ALMANZADOB: (68 yo M)Acc No.[id number]:06/23/2023 Progress Note Patient:?Piotr Almanza Provider:?Hellen Ibarra DPM :1955???Age:68 Y???Sex:Male Fritz e:06/23/2023 Address:[address] [place], [place] [address] Pcp:Khoa Cagle MD Subjective: * Chief Complaints: [...] on treadmill. ?Marital status: . ?Occupation: Retired- [employer]. * Medications:?TakingMetoprolo l Succinate Ciclopirox Olamine 0.77 [...] tingling, B/L.?DEEP TENDON REFLEXES:?Achilles, /4, B/L.?Vascular: ?DP PULSES:?3/, B/L.?PT PULSES:?/4, B/L.?CAPILLARY FILL TIME:?immediate, all digits, [...] necessary. Patient chooses, Ciclopirox gel.? * Procedure Codes:?79435 DEBRI DE NAIL, 6 OR MORE, Modifiers: [...] Sign off status: Completed true * Provider:?Hellen Ibarra, DPM Date:? Generated for Printi demetris/Sophia/eTransmitting on:?01/17/2024 12:57 PM EST History and Physical [...]
--- OUTSIDE RECORDS SUMMARY | 2024-01-17 12:58 | XMS_ITS | Patient Health Record ---
Author Organization [facility] Address [address] [place] [address] Care Team Providers Care Sales Office Administrator Name Role Phone Khoa Cagle MD Primary Care Provider Hellen High Unavailable [phone] Allergies No Known Allergies Reason For Referral [...] 09/13/2023 Encounters Encounter Location Date Provider Diagnosis [facility] [address] [place] [address] 02/10/2023 Hellen Ibarra Tinea unguium B35.1 ; Tinea pedis of both feet B35.3 ; Pain in right toe(s) M79.674 and Pain in left toe(s) M79.[address] [address] 04/14/2023 Hellen Perica Tinea unguium B35.1 ; Tinea pedis of both feet B35.3 ; Pain in right toe(s) M79.674 and Pain in left toe(s) M79.[address] [address] 06/23/2023 Hellen Perica Tinea unguium B35.1 ; Tinea pedis of both feet B35.3 ; Pain in right toe(s) M79.674 and Pain in left toe(s) M79.[address] [address] 09/13/2023 Hellen Perica Tinea unguium B35.1 ; Tinea pedis of both feet B35.3 ; Pain in right toe(s) M79.674 and Pain in left toe(s) M79.675 Assessments Encounter Date Diagnosis (ICD Code) Assessment Notes Treatment Notes Treatment Clinical Notes Section Notes 02/10/2023 Tinea unguium (ICD-10 - B35.1) [...] [employer] [address] [place] [address] [id number] Adelso Tilley Self - patient is the insured Med Blue [facility] [address] [place] [address] [phone] [id number] Adelso Tilley Self - patient is the insured Medical (General) History Medical History History ICD Code Irregular heartbeat Surgical History Surgery Date(Month/Year) colonoscopy
[2024-02-26 09:24] VITALS: BMI 30.5
--- NOTE | 2024-02-27 08:52 | P.CONAN_ITS ---
Documented by User: Ambreen Dunaway NP 02/27/24 08:57 HPI - Anesthesia Eval Consult details Narrative: 68yo M for Colonoscopy ETOH daily ~ 8 beers Follows [facility]iology for PVC's. Last office visit 10/2023 [facility] Active Problems Active Problems: All Active Problems Erectile dysfunction (Acute) PEYMAN (obstructive sleep apnea) (Acute) Alcohol blood level excessive (Acute) PVC (premature ventricular contraction) (Acute) Past Medical History Medical History Alcohol blood level excessive PVC (premature ventricular contraction) Family History Family History Father Atrial fibrillation Mother No problems noted. Surgical History Surgical History H/O colonoscopy No pertinent past surgical history Social History Social History Patient Tobacco Use Status: Former Tobacco user Years Smoked: 1994 Use of substances other than those prescribed or required for medical reasons: Yes Substance Use Type: Marijuana Substance Use Frequency: Daily Have you been hit, kicked, punched, or otherwise hurt by someone within the past year? If so, by whom?: No Are you DNR?: No Advance Directives: No Advance Directives Information Provided: Yes Recently lost weight without trying: No Meds Allergies Allergy/AdvReac Type Severity Reaction Status Date / Time No Known Allergies Allergy Verified 12/28/23 08:40 Home Medications ?Medication ?Instructions ?Recorded ?Confirmed ?Last Taken ?Type dorzolamide 22.3 mg-timolol 6.8 ml ophthalmic (eye) 08/10/21 10/19/23 Unknown History mg/mL eye drops brimonidine 0.2 % eye drops 1 drp ophthalmic-Right Q12H 10/12/21 10/19/23 Unknown History latanoprost 0.005 % eye drops 1 drp ophthalmic-Right BEDTIME 10/12/21 10/19/23 Unknown History Exam Height,Weight and Vital Signs: Height 6 ft Weight 102.058 kg Narrative Narrative: Holter 11/2023 * Total monitoring time 3 days. * Underlying rhythm is sinus with an average rate of 78/Min. * Supraventricular ectopy noted with a burden of 2.1%. Brief runs noted. * Ventricular ectopy noted with a burden of 3.4%. Rare couplets, triplets, bigeminy, trigeminy. Run of idioventricular rhythm during sleep hours. Multiple morphologies. * No significant pauses or high-grade AV blocks. * No patient markers or diary events. ECHO 2023 Conclusions: - 1. Normal LV ejection fraction 55-60% with impaired relaxation filling pattern 2. Trace aortic regurgitation 3. Mildly dilated ascending aorta at 3.7 cm 4. Normal RV systolic pressure 5. No pericardial effusion EKG 10/2023 Details: EKG with underlying sinus rhythm at 66/Min; no significant ST-T changes and otherwise unremarkable. Normal AZ and corrected QT. Assessment and Plan Assessment Anesthesia Assessment: Chart Reviewed Documented by User: Beatriz Mcnulty MD 02/28/24 07:53 PMFSH Past Medical History Medical History Alcohol blood level excessive PVC (premature ventricular contraction) Family History Family History Father Atrial fibrillation Mother No problems noted. Family history of problems with anesthesia: No Surgical History Surgical History H/O colonoscopy No pertinent past surgical history History of Problems with Anesthesia: No Social History Social History Patient Tobacco Use Status: Former Tobacco user Years Smoked: 1994 Use of substances other than those prescribed or required for medical reasons: Yes Substance Use Type: Marijuana Substance Use Frequency: Daily Have you been hit, kicked, punched, or otherwise hurt by someone within the past year? If so, by whom?: No Are you DNR?: No Advance Directives: No Advance Directives Information Provided: Yes Recently lost weight without trying: No Meds Allergies Allergy/AdvReac Type Severity Reaction Status Date / Time No Known Allergies Allergy Verified 12/28/23 08:40 Home Medications ?Medication ?Instructions ?Recorded ?Confirmed ?Last Taken ?Type dorzolamide 22.3 mg-timolol 6.8 ml ophthalmic (eye) 08/10/21 10/19/23 Unknown History mg/mL eye drops brimonidine 0.2 % eye drops 1 drp ophthalmic-Right Q12H 10/12/21 10/19/23 Unknown History latanoprost 0.005 % eye drops 1 drp ophthalmic-Right BEDTIME 10/12/21 10/19/23 Unknown History Exam Airway Mallampati Class: III TM Dist: >3cm Heart: rrr Lungs: cta Assessment and Plan Assessment Anesthesia Assessment: Anesthesia Plan Discussed Final Anesthetic Review Family History of Problems with Anesthesia: No History of Problems with Anesthesia: No NPO: Yes ASA Class: III Final Preanesthetic Review: No Changes in Pt Med Stat, Meds/Allgs Chart Reviewed, Consent Obtained/Reviewed and Anes Risks/Benef Reviewed Patient Risk: Intermediate Procedure Risk: Low Anesthetic Plan Anesthetic Plan: MAC: Disposition: Standard PACU
--- OUTSIDE RECORDS SUMMARY | 2024-02-28 06:47 | XMS_ITS | Patient Health Record ---
Author Organization [facility] Address [address] [place] [address] Care Team Providers Care Knockup Worker Name Role Phone Khoa Cagle MD Primary Care Provider Shaq Knutson Unavailable [phone] ALLERGIES No Known Allergies REASON FOR REFERRAL [...] malignant neoplasm of colon (Z12.11) Active confirmed 867048537 Problem Preprocedural examination (Z01.818) Active confirmed [id number] Problem History of adenomatous polyp of colon (Z86.010) Active confirmed History of adenomatous polyp of colon (553912003) Problem Colon cancer screening (Z12.11) Active confirmed Colon cancer screening (533220372) Problem Encounter for other preprocedural examination (Z01.818) Active confirmed Pre-procedure evaluation check (118954564) VITAL SIGNS Blood pressure diastolic 00 mm Hg 10/26/2023 Height 72 in 10/26/2023 Blood pressure systolic 00 mm Hg 10/26/2023 Weight 225 lbs 10/26/2023 BMI 30.51 kg/m2 10/26/2023 Encounters Encounter Location Date Provider Diagnosis [facility] [place] [address] [place] [phone] 02/28/2024 Shaq Corral [facility] [address] [place] [address] 10/26/2023 Shaq Corral History of adenomato us [...] COLONOSCOPY 10/26/2023 Next Appt Details Provider Name:Shaq Corral , 02/28/2024 07:30:00 AM, [address] [place] [address] , [place], [place], [phone], Insurance Providers Payer Name Payer Address Payer Phone Subscriber Number Group Number Insured Name Patient Relationship to Insured Coverage Start Date Coverage End Date MEDICARE [place] [address] [place] [address] [id number] YIFAN ALMANZA Self - patient is the insured [employer] CLAIM[employer] [address] [place] [phone] [id number] YIFAN ALMANZA Self - patient is the insured MEDICAL (GENERAL) HISTORY Medical History History ICD Code Denies CO,DM,CVA,Lung disease,renal dise ase Neg. screening colonoscopy i [...]
--- OUTSIDE RECORDS SUMMARY | 2024-02-28 06:47 | XMS_ITS ---
Author Organization [facility] Address [address] [place] [address] Care Team Providers Care Fund Accounting Manager Name Role Phone Khoa Cagle MD Primary Care Provider Carly sheppard CorralShaq Unavailable [phone] ALLERGIES No Known Allergies REASON FOR VISIT [...] confirmed History of adenomatous polyp of colon (217227544) Problem Colon cancer screening (Z12.11) Active confirmed Colon cancer screening (447902380) Problem Encounter for other preprocedural examination (Z01.818) Active confirmed Pre-procedure evaluation check (316522382) VITAL SIGNS BMI 30.51 kg/m2 10/26/2023 Blood pressure systolic 00 mm Hg 10/26/19 24 Blood pressure diastolic 00 mm Hg 024 Height 72 in 10/26/2023 Weight 225 lbs 10/26/2023 Encounters Encounter Location Date Provider Diagnosis [facility] [address] [place] [address] 10/26/2023 Shaq Corral History of adenomato us [...] prn, Reason: Provider Name:Shaq Corral , 02/28/2024 07:30:00 AM, [address] [place] [address] , [place], [place], [phone], Progress Notes * Examination Category Sub-Category Detail [...]
[2024-02-28 07:12] VITALS: BP 167/103; PULSE 68; RESP 16; TEMP 36.7; O2SAT 98; BMI 29.8
[2024-02-28] MEDS: Lactated Ringers 1,000 ML 100 ML IVCONT (07:30)
[2024-02-28 08:25] VITALS: BP 97/61; PULSE 71; RESP 16; TEMP 36.3; O2SAT 93
--- NOTE | 2024-02-28 08:31 | PM.OP ---
Brief Operative Note Date of Service: 02/28/24 Pre-op diagnosis: Screening Post-op diagnosis: other (Polyps) Procedure: Colonoscopy to the cecum and TI with bx/removal of polyps Surgeon: Shaq Corral MD Anesthesia: MAC Was an Wire Basket Maker used for this Procedure?: No Estimated blood loss (mL): 2.0 Pathology: other (A. Polyps at 15cm) Condition: stable Disposition: PACU
[2024-02-28 08:42] VITALS: BP 129/78; PULSE 62; RESP 17; TEMP 36.3; O2SAT 99
--- NOTE | 2024-02-28 08:45 | OP_ITS ---
DATE OF SERVICE: 02/28/2024 SURGEON: Shaq Corral MD INDICATIONS: The patient presents for evaluation of personal history of tubular adenoma of the colon and colorectal cancer screening. Full consent obtained from him for this, including risks of bleeding and perforation. PREOPERATIVE DIAGNOSIS: Colorectal cancer screening and personal history of tubular adenoma of the colon. POSTOPERATIVE DIAGNOSIS: Colorectal cancer screening and personal history of tubular adenoma of the colon, small colon polyps, diverticulosis, and internal hemorrhoids. PROCEDURE PERFORMED: Colonoscopy to the cecum and terminal ileum with biopsy and removal of polyps. ESTIMATED BLOOD LOSS: COMPLICATIONS: ANESTHESIA: Monitored anesthesia care. ASSISTANTS: SPECIMENS: DESCRIPTION OF PROCEDURE: The patient was placed in the left lateral decubitus position. The digital rectal exam revealed no abnormalities. The Olympus video pediatric colonoscope was entered into the rectum and advanced easily to the cecum. Once in the cecum, I did identify normal-appearing cecal pouch with appendiceal orifice and a normal-appearing ileocecal valve. The terminal ileum was cannulated and appeared normal. The scope was withdrawn back in the colon. The entire cecum and ileocecal valve appeared normal. The scope was slowly withdrawn assessing all mucosal surfaces carefully. Preparation was excellent. At 15 cm, there were 2 flat less than 5 mm polyps, both of which were biopsied and completely removed with cold biopsy forceps. I did not visualize any other polyps, colitis, nor angiodysplasia. There was a mild amount of sigmoid diverticulosis. In the rectum, scope was retroflexed visualizing internal hemorrhoids, but no other pathology. The rectal mucosa appeared normal. The scope was straightened and withdrawn from the patient. He tolerated the procedure well and was returned to recovery area in stable condition. IMPRESSION: 1. Small colon polyps. 2. Diverticulosis. 3. Internal hemorrhoids. PLAN: The results of the biopsies will be checked. I would recommend a repeat colonoscopy in 5 years for further screening and surveillance. He will otherwise see me on a p.r.n. basis. MD ERNESTINA Parsons/PADILLA / [phone] MTDMarianne
== END 2024-02-28 09:09 | disposition home or self-care (01) ==
PROVIDERS: PCP Internal Medicine; Visit Provider Internal Medicine
PROC: 0DJD8ZZ Inspection of Lower Intestinal Tract, Via Natural or Artificial Opening Endoscopic (ICD-10-PCS; CPT 45378; principal; 2024-02-28 07:30)
DX: Z12.11 Encounter for screening for malignant neoplasm of colon (principal); Z86.0101 Personal history of adenomatous and serrated colon polyps; K63.5 Polyp of colon; K57.30 Diverticulosis of large intestine without perforation or abscess without bleeding; K64.8 Other hemorrhoids; I49.3 Ventricular premature depolarization; Z79.899 Other long term (current) drug therapy; Z87.891 Personal history of nicotine dependence
CPT/HCPCS: 45380; 88305; J2704

== ENCOUNTER 2024-06-25 08:26 | Outpatient (AMB) | payer MEDICARE, SELFPAY ==
--- NOTE | 2024-06-25 08:32 | A.OFFVIS_ITS ---
Intake Visit Reasons: 6m follow up Intake Note: Pt presents to the office today for a 6 month follow up. Urology Meds:Tadalafil Allergies No Known Allergies Allergy (Verified 06/25/24 08:32) HPI Comments Details: Adleso is a pleasant male. He is a patient Dr. Shook. He is seen for the following urologic conditions - erectile dysfunction Six-month follow-up High-dose tadalafil protocol Some benefit from tadalafil 10 mg with 20 mg on demand Continues to use penile pump as well - had trouble with released valve Twelve month follow-up Erectile dysfunction Longstanding Prior therapy - combination therapy with daily tadalafil 10 mg and on demand medication had partial response Recommend continuing with daily tadalafil and addition of generic Viagra on a as needed basis Had failed when using Viagra on an as-needed basis Comorbidities obstructive sleep apnea recent diagnosis PSA 11/27 1.9, 01/29 1.15 PFS Medical History Alcohol blood level excessive PVC (premature ventricular contraction) Surgical History H/O colonoscopy No pertinent past surgical history Family History Father Atrial fibrillation Mother No problems noted. Social History Patient Tobacco Use Status: Former Tobacco user Years Smoked: 1994 Substance Use Type: Marijuana Review of Systems Const Denies chills and Denies fever(s) Card Reports no additional complaints and Denies syncope Resp Denies cough GI Denies abdominal pain and Denies heartburn Reports as per HPI and Denies change in libido Neuro Denies syncope Psych Denies change in libido Endo Denies change in libido Physical Exam Const General: cooperative, healthy appearing, comfortable and no acute distress Orientation/consciousness: patient oriented x3 HEENT Face and sinus: Yes normal facial exam Mouth: moist mucous membranes Neck Neck: Yes normal visual inspection, Yes full ROM and Yes trachea midline Chest Chest palpation & inspection: normal inspection of the chest Resp Effort & Inspection: normal respiratory effort, able to speak in complete sentences and no respiratory distress GI Inspection: Yes normal to inspection Back/Spine/Pelvis Cervical Spine: normal cervical lordosis Thoracic/Lumbar Spine: thoracic and lumbar spine normal to inspection Skin General skin exam: no rashes or lesions noted Neuro General: patient oriented x3, gait normal, tone normal and moves all extremities Extrem General: Yes normal to inspection and Yes capillary refill normal Assessment & Plan Assessment & Plan (1) Erectile dysfunction: Comment: Maximum daily therapy Code(s): N52.9 - Male erectile dysfunction, unspecified Category: Medical Plan 12 month follow-up Patient Instructions: This note is constructed using voice recognition software. While every effort has been made to ensure accuracy sewer and drain technician errors may have been included. Imaging studies, laboratory and physical exam results were discussed and reviewed in detail. No major barriers to patient understanding were identified. An opportunity to ask questions regarding the treatment plan was provided. All questions were answered. The patient expressed understanding and agreement with the above treatment plan. The patient is aware they should contact our office by phone for worsening of their current condition or the appearance of new urologic symptoms. Compliance is encouraged with any medications and followup testing that is ordered. It is a privilege to participate in the urologic care of your patient. If you have any questions or concerns regarding treatment for the above conditions, or other urologic issues, please do not hesitate to contact me. The office telephone contact is [phone]. Sincerely, Dr Corby Coronel MD, [facility] - Urology Compassionate Specialist Care for the Genitourinary System Coding Level of Care Code Est Pt Level 3 (08269) Diagnoses Erectile dysfunction N52.9
--- OUTSIDE RECORDS SUMMARY | 2024-06-25 08:36 | XMS_ITS | Patient Health Record ---
Author Organization [facility] Address [address] [place] [address] Care Team Providers Care University Administrator Name Role Phone Khoa Cagle MD Primary Care Provider Hellen High Unavailable [phone] Allergies No Known Allergies Reason For Referral [...] 09/13/2023 Encounters Encounter Location Date Provider Diagnosis [facility] [address] [place] [address] 09/13/2023 Hellen Ibarra Tinea unguium B35.1 ; Tinea pedis of both feet B35.3 ; Pain in right toe(s) M79.674 and Pain in left toe(s) M79.675 Assessments Encounter Date Diagnosis (ICD Code) Assessment Notes Treatment Notes Treatment Clinical Notes Section Notes 09/13/2023 Tinea unguium (ICD-10 - B35.1) 09/13/2023 Pain in right toe(s) (ICD-10 - M79.674) 09/13/2023 Tinea pedis of both feet (ICD-10 - B35.3) 09/13/2023 Pain in left toe(s) (ICD-10 - M79.675) Plan Of Treatment No Information Insurance Providers Payer Name Payer Address Payer Phone Subscriber Number Group Number Insured Name Patient Relationship to Insured Coverage Start Date Coverage End Date Medicare National [employer] [address] [place] [phone] [id number] Adelso Tilley Self - [facility] is the [facility] [address] [place] [address] [phone] [id number] Adelso Tilley Self - patient is the insured Medical (General) History Medical History History ICD Code Irregular heartbeat Surgical History Surgery Date(Month/Year) colonoscopy
--- OUTSIDE RECORDS SUMMARY | 2024-06-25 08:36 | XMS_ITS ---
Author Organization [facility] Address [address] [place] [address] Care Team Providers Care Outpatient Physical Therapist Assistant Name Role Phone Khoa Cagle MD Primary Care Provider Carly sheppard CorralShaq Unavailable [phone] Allergies No Known Allergies REASON FOR VISIT Patient presents today for a colon screening Medications Medication SIG (Take, Route, Frequency, Duration) Notes Start Date End Date Status Metoprolol Succinate ER 50 MG TAKE 1 TABLET BY MOUTH DAILY Oral for 60 Active Tadalafil 10 MG TAKE ONE TABLET BY M OUTH EVERY DAY NEEDED FOR SEXUAL ACTIVITY Oral for 90 Active Social History Tobacco Use: Social History Observation Description Date Details (start date - stop date) Never Smoker NA - NA Tobacco Use/Smoking Question Answer Notes Patient is [...] Never (0 point) Points 4 Interpretation Positive Section Notes: Smokes marijuana daily; 6 be ers QD Problems Problem Type SNOMED Code ICD Code Onset Dates Problem Status W/U Status Risk Notes Problem History of adenomatous polyp of colon (709877355) History of adenomatous polyp of colon (Z86.010) Active confirmed Problem Colon cancer screening (Z12.11) Active confirmed Problem Pre-procedure evaluation check (909107546) Encounter for other preprocedural examination (Z01.818) Active confirmed Vital Signs Blood pressure systolic 00 mm Hg 10/26/19 24 Blood pressure diastolic 00 mm Hg 024 Height 72 in 10/26/2023 Weight 225 lbs 10/26/2023 BMI 30.51 kg/m2 10/26/2023 Encounters Encounter Location Date Provider Diagnosis [facility] [address] [place] [address] 10/26/2023 Shaq Corral History of adenomato us polyp of colon Z86.010 ; Colon cancer screening Z12.11 and Encounter for other preprocedural examination Z01.818 Assessments Encounter Date Diagnosis (ICD Code) Assessment Notes Treatment Notes Treatment Clinical Notes Section Notes 10/26/2023 History of adenomatous polyp of colon (ICD-10 - Z86.010) Overall, Nico appears quite well. Given his history of a tubular adenoma removed just over 5 years ago and his good clinical appearance, I did recommend a followup colonoscopy for further screening purposes. We did review the rationale for that in regard to colon cancer prevention. Full consent is obtained for this, including risks of bleeding and perforation. The procedure will be done with monitored anesthesia care. Nico was comfortable with this plan. Thank you again for allowing me to participate in Nico's care. I shall continue to keep you advised of his progress. 10/26/2023 Colon cancer screening (ICD-10 - Z12.11) Overall, Nico appears quite well. Given his history of a tubular adenoma removed just over 5 years ago and his good clinical appearance, I did recommend a followup colonoscopy for further screening purposes. We did review the rationale for that in regard to colon cancer prevention. Full consent is obtained for this, including risks of bleeding and perforation. The procedure will be done with monitored anesthesia care. Nico was comfortable with this plan. Thank you again for allowing me to participate in Nico's care. I shall continue to keep you advised of his progress. 10/26/2023 Encounter for other preprocedural examination (ICD-10 - Z01.818) Overall, Nico appears quite well. Given his history of a tubular adenoma removed just over 5 years ago and his good clinical appearance, I did recommend a followup colonoscopy for further screening purposes. We did review the rationale for that in regard to colon cancer prevention. Full consent is obtained for this, including risks of bleeding and perforation. The procedure will be done with monitored anesthesia care. Nico was comfortable with this plan. Thank you again for allowing me to participate in Nico's care. I shall continue to keep you advised of his progress. Plan Of Treatment Future Test Test Name Order Date COLONOSCOPY 10/26/2023 Next Appt Details Follow Up: prn, Reason: Progress Notes * YIFAN ALMANZADOB:07/1955 (68 yo M)Acc No.[id number]:10/26/2023 Progress Notes Patient:?HILARY ALMANZA Provider:?Shaq Corral MD :1955???Age:68 Y???Sex:Male Fritz e:10/26/2023 Address:[address] [place], [place] [phone] Pcp:Khoa Cagle MD Subjective: * Chief Complaints: * ???Patient presents today fo r a colon screening * HPI: ???incontinence:? I saw Nico in the office today for evaluation of his personal history of a tubular adenoma of the colon and need for colorectal cancer screening. ?I last saw Nico in September of 2018, at which time he underwent a followup screening colonoscopy with removal of a rectal tubular adenoma. He presently feels very well. He enjoys a good appetite, without any significant heartburn or dysphagia. His bowel movements have been regular and without any signs of bleeding. He denies abdominal pain, jaundice, nor unintentional weight loss. He denies any known family history of colorectal cancer. * ROS:?General/Constitutional:?Change in appetite?denies.?Chills?denies.?Fatigue?denies.?Ophthalmologic:?Comments?all negative.?ENT:?Comments?all negative.?Respiratory:?hemoptysis?denies.?Cough?denies.?Cardiovascular:?Chest pain?denies.?Orthopnea?denies.?Gastrointestinal:?Comments?See HPI for details.?Genitourinary:?Hematuria?denies.?Dysuria?denies.?Musculoskeletal:?Painful joints?denies.?Weakness?denies.?Skin:?Itching?denies.?Rash?denies.?Neurologic:?Headache?denies.?Seizures?denies.?Psychiatric:?Comments?all negative.? * Medical History:? * Surgical History:?Denies Pas t Surgical History * Hospitalization/Major Diagno stic Procedure:?No Hospitalization History. * Family History:?Father: dece ased 89 yrs, diagnosed with Diabetes.?Mother: 102 yrs.? No known hx of colorectal cancer. His brother of pancreatic cancer and his sister from ALS. * Social History:?Tobacco Use:?Tobacco Use/Smoking?Patient is a?nonsmoker.?Drugs/Alcohol:?Alcohol Screen?Did you have a drink containing alcohol in the past year??Yes,?How often did you have a drink containing alcohol in the past year??4 or more times a week (4 points),?How many drinks did you have on a typical day when you were drinking in the past year??1 or 2 drinks (0 point),?How often did you have 6 or more drinks on one occasion in the past year??Never (0 point),?Points?4,?Interpretation?Positive.?Miscellaneous:?Marital status: . 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 ???Smokes marijuana daily; 6 beers QD. * Medications:?TakingTadalafil 10 MG Tablet TAKE ONE TABLET BY MOUTH EVERY DAY NEEDED FOR SEXUAL ACTIVITY Oral Metoprolol Succinate ER 50 MG Tablet Extended Release 24 Hour TAKE 1 TABLET BY MOUTH DAILY Oral Medication List reviewed and reconciled with the patientTaking Tadalafil 10 MG Tablet TAKE ONE TABLET BY MOUTH EVERY DAY NEEDED FOR SEXUAL ACTIVITY Oral Taking Metoprolol Succinate ER 50 MG Tablet Extended Release 24 Hour TAKE 1 TABLET BY MOUTH DAILY Oral Medication List reviewed and reconciled with the patient * Allergies:?N.K.D.A.yes[Aller gies Verified] Objective: * Vitals:?Wt: 225 lbs, Ht: 72 in, BMI:30.51 Index, BP: 00/00 mm Hg. * Examination: ???General Examination: ?GENERAL APPEARANCE:?pleasant, well nourished, well developed, in no acute distress.?EYES:?sclera non-icteric.?ORAL CAVITY:?mucosa moist.?NECK/THYROID:?no cervical lymphadenopathy, neck supple.?SKIN:?nonjaundiced, no spider angiomata.?HEART:?S1, S2 normal.?LUNGS:?clear to auscultation bilaterally.?ABDOMEN:?normal bowel sounds, no guarding or rigidity, no guarding or rigidity, no masses palpable, soft, nontender, nondistended.?EXTREMITIES:?no edema.?NEUROLOGIC:?alert and oriented.? Assessment: * Assessment: 1.?History of adenomatous po lyp of colon - Z86.010 (Primary)?2.?Colon cancer screening - Z12.11?3.?Encounter for other preprocedural examination - Z01.818? Overall, Nico appears quite well. Given his history of a tubular adenoma removed just over 5 years ago and his good clinical appearance, I did recommend a followup colonoscopy for further screening purposes. We did review the rationale for that in regard to colon cancer prevention. Full consent is obtained for this, including risks of bleeding and perforation. The procedure will be done with monitored anesthesia care. Nico was comfortable with this plan. Thank you again for allowing me to participate in Nico's care. I shall continue to keep you advised of his progress. Plan: * Treatment: 2.?Colon cancer screening?Procedure: COLONOSCOPY (Ordered for 10/26/2023)* with MACsched for 02/28/24 at 8:20 ammiralax * Procedure Codes:? * Preventive Medicine:? ??Counseling:?Care goal follow-up plan:?Above Normal BMI Follow-up?Giving encouragement to exercise,?BMI management provided?Yes.? ??Screenings:?Fall Risk Screening?Fall Risk Assessment:?No falls in the past year,?Assessment:?Not performed, no reason specified.? * Follow Up:?prn * * Sign off status: Completed true * Provider:?Shaq Corral MD Date:? 024 Generated for Rafita willson/Sophia/Caio on:?06/25/2024 08:36 AM EDT History and Physical Notes * HPI (History of Present Illness) Category Sub-Category Detail Notes Category Not es incontinence I saw Nico in the office today for evaluation of his personal history of a tubular adenoma of the colon and need for colorectal cancer screening. I last saw Nico in September of 2018, at which time he underwent a followup screening colonoscopy with removal of a rectal tubular adenoma. He presently feels very well. He enjoys a good appetite, without any significant heartburn or dysphagia. His bowel movements have been regular and without any signs of bleeding. He denies abdominal pain, jaundice, nor unintentional weight loss. He denies any known family history of colorectal cancer. Examination Category Sub-Category Detail Notes Category Not es General Examination GENERAL APPEARANCE: pleasant , well [...]
--- OUTSIDE RECORDS SUMMARY | 2024-06-25 08:36 | XMS_ITS ---
Author Organization [facility] Address [address] [place] [address] Care Team Providers Care Deflash And Wash Operator Name Role Phone Khoa Cagle MD Primary Care Provider Shaq Knutson [phone] REASON FOR VISIT screening,hx polyps Encounters Encounter Location Date Provider Diagnosis [facility] [address] [place], [place] [phone] 02/28/2024 Shaq Corral Colon cancer scree lucila [...] Notes * YIFAN ALMANZADOB:07/1955 (69 yo M)Acc No.[id number]:02/28/2024 COLON WITH MAC Patient:?HILARY ALMANZA Provider:?Shaq Corral MD :1955???Age:68 Y???Sex:Male Fritz e:02/28/2024 Address:[address] [place], [place] [id number] Pcp:Khoa Cagle MD Subjective: * Chief Complaints: * ???1. Screening,hx polyps. * Medical History:? Objective: * Vitals:? 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 Plan: * Treatment: * Procedure Codes:?77905 COLON OSCOPY AND BIOPSY, Modifiers: PT , 0529F INTRVL 3+YRS PTS CLNSCP DOCD, 0528F RCMND FLW-UP 10 YRS DOCD, Modifiers: 1P * * The named appointment provid er may or may not be the originator of this progress note, and it is not deemed complete until electronically signed by the appointment provider. Sign off status: Pending * Provider:?Shaq Corral MD Date:? 025 Generated for Rafita willson/Sophia/Porfirioitting on:?06/25/2024 08:35 AM EDT
--- OUTSIDE RECORDS SUMMARY | 2024-06-25 08:36 | XMS_ITS ---
Author Organization [facility] [place] Address [address] [place] [address] Care Team Providers Care Miter Sawyer Name Role Phone Khoa Cagle MD Primary Care Provider Jonia Hellen Quach Unavailable [phone] Allergies No Known Allergies REASON FOR VISIT [...] 04/14/2023 Encounters Encounter Location Date Provider Diagnosis [facility] [place] [address] [place] [address] 04/14/2023 Hellen Ibarra Tinea unguium B35.1 ; [...] as necessary. Patient chooses, no pharmaceutical tx (94250) Progress Notes * Adelso ALMANZADOB: (68 yo M)Acc No.[id number]:04/14/2023 Progress Note Patient:?Piotr Almanza Provider:?Hellen Ibarra DPM :1955???Age:68 Y???Sex:Male Fritz e:04/14/2023 Address:[address] [place], [place] [phone] Pcp:Khoa Cagle MD Subjective: * Chief Complaints: [...] on treadmill. ?Marital status: . ?Occupation: Retired- [employer]. * Medications:?TakingMetoprolo l Succinate Ciclopirox Olamine 0.77 [...] as necessary. Patient chooses, no pharmaceutical tx (49650).? * Procedure Codes:?73576 DEBRI DE NAIL, 6 OR MORE, Modifiers: [...] Ibarra DPM Date:?09/2023 Generated for Rafita willson/Sophia/Caio on:?06/25/2024 08:36 AM [...] person, place, and t [facility] DP PULSES (B): 3/4, B/L PT PULSES (B): 3/4, B/L CAPILLARY FILL TIME: immediate, all digi ts, B/L TEMPERTURE GRADIENT (C): warm to cool, p roximal to distal, B/L TROPHIC CONDITION-TEXTURE/ELASTICITY/TURGOR/HAIR GROWTH (B): normal, B/L EDEMA (C): absent, B/L PIGMENTATION: normal, B/L Nails NAILS are: Elongated, overg rown, dystrophic, lytic, greater than 3mm thick, discolored and friable with crumbly malodorous subungual debris, with pain on palpation 1-5 B/L
--- OUTSIDE RECORDS SUMMARY | 2024-06-25 08:36 | XMS_ITS | Patient Health Record ---
Author Organization [facility] Address [address] [place] [address] Care Team Providers Care Landscape Artist Name Role Phone Gurjit MULLEN, Khoa Primary Care Provider Shaq Knutson Unavailable [phone] Allergies No Known Allergies Results Component Value Reference Range Notes Pathology (Not yet reviewed by provider) Interpretation: Performing Lab:[facility], [address] [place] [id number] Notes/Report: Name: Lupis Almanza Age/Sex: 68/M : 1955 Unit#: [id number] Attend Dr: Shaq Corral MD Re02/28/24 Status : [facility] Location: [facility] Disch: SPEC : [id number] RECD: 02/28/24 STATUS: MERLYN MENSAH NUM: [id number] EMIR: 02/28/24 [facility] DR: Shaq Corral MD ENTERED: 02/28/24 SP TYPE: Surgical OTHR DR: Khoa Cagle MD ORDERED: HE Stain/3, Gross Micro L4 Diagnosis Colon, at 15 cm, stefany yps: Hyperplastic polyps, two. Clinical History Pre-Op Dx: Hx coloni c polys, screening Post-Op Dx: Colon po lyps, diverticulosis, hemorrhoids Microscopic Description Microscopic sections reviewed. Material Received Polyps @ 15 cm Gross Description Received in formalin labeled ?polyps at 15 cm? are 2 ribera-pink irregular tissue fragments measuring 0.2 and 0. 3 cm, submitted in toto in a cassette labeled A. CEDS Copies To: Khoa Cagle MD [facility] [address] [place], [place] [id number] Shaq Corral MD [facility] [address] [place] [address] [address] [place] [address] Signed (si gnature on file) Elizabeth Martin 02/29/24 1243 END OF REPORT Reason For Referral No Information Medications Medication SIG (Take, Route, Frequency, Duration) Notes Start Date End Date Status Metoprolol Succinate ER 50 MG TAKE 1 TABLET BY MOUTH DAILY Oral for 60 Active Tadalafil 10 MG TAKE ONE TABLET BY M OUTH EVERY DAY NEEDED FOR SEXUAL ACTIVITY Oral for 90 Active Immunizations Vaccine Route Administration Date Status Comme nts Influenza Unknown 10/07/2017 Administered Social History Tobacco Use: Social History Observation [...] point) Points 4 Interpretation Positive Section Notes: Nonsmoker; 2 beers QD Smokes marijuana daily; 6 be ers QD Problems Problem Type SNOMED Code ICD Code Onset Dates Problem Status W/U Status Risk Notes Problem Colon cancer screening (065271868) Colon cancer screening (Z12.11) Active confirmed Problem 467668129 Encounter for screening for malignant neoplasm of colon (Z12.11) Active confirmed Problem History of adenomatous polyp of colon (410604328) History of adenomatous polyp of colon (Z86.010) Active confirmed Problem Pre-procedure evaluation check (782909279) Encounter for other preprocedural examination (Z01.818) Active confirmed Problem [id number] Preprocedural examination (Z01.818) Active confirmed Vital Signs Blood pressure diastolic 00 mm Hg 10/26/2023 Height 72 in 10/26/2023 Blood pressure systolic 00 mm Hg 10/26/2023 Weight 225 lbs 10/26/2023 BMI 30.51 kg/m2 10/26/2023 Encounters Encounter Location Date Provider Diagnosis [facility] Out[facility] [address] [place], [place] [id number] 02/28/2024 Shaq Corral Colon cancer screeni ng Z12.11 ; Personal history of adenomatous and serrated colon polyps Z86.0101 ; Colon dysplasia D12.6 and Diverticulosis of colon K57.30 [facility] [address] [place] [address] 10/26/2023 Shaq Corral History of adenomato us polyp of colon Z86.010 ; Colon cancer screening Z12.11 and Encounter for other preprocedural examination Z01.818 Assessments Encounter Date Diagnosis (ICD Code) Assessment Notes Treatment Notes Treatment Clinical Notes Section Notes 02/28/2024 Colon cancer screening (ICD-10 - Z12.11) 02/28/2024 Personal history of adenomatous and serrated colon polyps (ICD-10 - Z86.0101) 10/26/2023 Colon cancer screening (ICD-10 - Z12.11) [...] keep you advised of his progress. 10/26/2023 History of adenomatous polyp of colon [...] to keep you advised of his progress. 02/28/2024 Colon dysplasia (ICD-10 - D12.6) 10/26/2023 Encounter for other preprocedural examination (ICD-10 [...] to keep you advised of his progress. 02/28/2024 Diverticulosis of colon (ICD-10 - K57.30) Plan Of Treatment Pending Test Test Name Order Date Pathology 02/28/2024 Future Test Test Name Order Date COLONOSCOPY 06/12/2018 COLONOSCOPY 10/26/2023 Insurance Providers Payer Name Payer Address Payer Phone Subscriber Number Group Number Insured Name Patient Relationship to Insured Coverage Start Date Coverage End Date MEDICARE OF [place] [address] [place] [id number] LUPIS ALMANZAINGRISALEJANDRO Self - patient is the insured [employer] ATT[employer] CLAIMS [address] [place] [address] [phone] [id number] ALMANZAYANIRAALEJANDRO Self - patient is the insured Medical (General) History Medical History History ICD Code Denies NE,DM,CVA,Lung disease,renal dise ase Neg. screening colonoscopy i [...]
--- OUTSIDE RECORDS SUMMARY | 2024-06-25 08:36 | XMS_ITS ---
Author Organization [facility] Don[place] Address [address] [facility] [place] [address] Care Team Providers Care Final Cigar And Box Examiner Name Role Phone Khoa Cagle MD Primary Care Provider Jonia Hellen Quach Unavailable [phone] Allergies No Known Allergies REASON FOR VISIT [...] 06/23/2023 Encounters Encounter Location Date Provider Diagnosis [facility] [place] [address] [place] [address] 06/23/2023 Hellen Ibarra Tinea unguium B35.1 ; [...] Notes * Adelso ALMANZADOB: (68 yo M)Acc No.[id number]:06/23/2023 Progress Note Patient:?Piotr Almanza Provider:?Hellen Ibarra DPM :1955???Age:68 Y???Sex:Male Fritz e:06/23/2023 Address:[address] [place], [place] [phone] Pcp:Khoa Cagle MD Subjective: * Chief Complaints: [...] on treadmill. ?Marital status: . ?Occupation: Retired- [employer]. * Medications:?TakingMetoprolo l Succinate Ciclopirox Olamine 0.77 [...] necessary. Patient chooses, Ciclopirox gel.? * Procedure Codes:?52967 DEBRI DE NAIL, 6 OR MORE, Modifiers: [...] Provider:?Hellen Ibarra, DPM Date:? Generated for Printi ng/Sophia/eTransmitting on:?06/25/2024 08:35 AM EDT History and Physical Notes * [...]
--- OUTSIDE RECORDS SUMMARY | 2024-06-25 08:37 | XMS_ITS ---
Author Organization [facility] Address [address] [place] [address] Care Team Providers Care News Assistant Name Role Phone Khoa Cagle MD Primary Care Provider Hellen High Unavailable [phone] Allergies No Known Allergies REASON FOR VISIT [...] 09/13/2023 Encounters Encounter Location Date Provider Diagnosis [facility] [address] [place] [address] 09/13/2023 Hellen Ibarra Tinea unguium B35.1 ; [...] * Adelso TILLEY JDOB: (68 yo M)Acc No.[id number]:09/13/2023 Progress Note Patient:?TilleyPiotr mata Provider:?Hellen Ibarra DPM :1955???Age:68 Y???Sex:Male Fritz e:09/13/2023 Address:[address] [place], [place] [phone] Pcp:Khoa Cagle MD Subjective: * Chief Complaints: [...] on treadmill. ?Marital status: . ?Occupation: Retired- [employer]. * Medications:?TakingMetoprolo l Succinate Ciclopirox Olamine 0.77 [...] necessary. Patient chooses, Ciclopirox gel.? * Procedure Codes:?47108 DEBRI DE NAIL, 6 OR MORE, Modifiers: [...] status: Completed true * Provider:?Hellen Ibarra DPM Date:?08/2023 Generated for Rafita willson/Sophia/Caio on:?06/25/2024 08:36 AM [...]
== END 2024-06-25 08:50 | disposition home or self-care (01) ==
LOC: HO.HUSH 08:27
PROVIDERS: PCP Internal Medicine; Visit Provider Urology
DX: N52.9 Male erectile dysfunction, unspecified (principal)
CPT/HCPCS: 99213

== ENCOUNTER → 2024-06-25 08:26 | Outpatient (BNVA) | payer MEDICARE, SELFPAY | PROVIDERS: PCP Internal Medicine; Visit Provider Urology | DX: N52.9 Male erectile dysfunction, unspecified (principal) | CPT/HCPCS: 99212 ==

== ENCOUNTER 2024-07-08 07:52 | Outpatient (AMB) | payer MEDICARE, SELFPAY ==
--- OUTSIDE RECORDS SUMMARY | 2024-07-08 07:54 | XMS_ITS ---
Author Organization [facility] Address [address] [place] [address] Care Team Providers Care Scenery Builder Name Role Phone Khoa Cagle MD Primary Care Provider Shaq Knutson [phone] REASON FOR VISIT screening,hx polyps Encounters Encounter Location Date Provider Diagnosis [facility] [address] [place], [place] [phone] 02/28/2024 Shaq Corral Colon cancer scree lucila [...] Notes * YIFAN ALMANZADOB:07/1955 (69 yo M)Acc No.[id number]:02/28/2024 COLON WITH MAC Patient:?HILARY ALMANZA Provider:?Shaq Corral MD :1955???Age:68 Y???Sex:Male Fritz e:02/28/2024 Address:[address] [place], [place] [id number] Pcp:Khoa Cagle MD Subjective: * Chief Complaints: * ???1. Screening,hx polyps. * Medical History:? Objective: * Vitals:? 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 Plan: * Treatment: * Procedure Codes:?26539 COLON OSCOPY AND BIOPSY, Modifiers: PT , [...] Corral MD Date:? 025 Generated for Rafita willson/Sophia/Delfinosmitting on:?07/08/2024 07:54 AM EDT
--- NOTE | 2024-07-08 07:55 | MHC.PC.OV ---
Vital Signs 07/08/24 07:58 07/08/24 08:09 Height 6 ft Weight 104.78 kg BMI 31.3 BP 132/90 H 120/68 Respiration 18 Pulse 75 Pulse Source Pulse Oximeter Temp 99.0 F Temp Source Temporal Artery Scan Pulse Oximetry (%) 96 Oxygen Delivery Method Room Air Intake Visit Reasons: Routine Aadc Plans Staff Officer Required: No Accompanied by: Self / Same As Patient Allergies No Known Allergies Allergy (Verified 07/08/24 07:55) HPI HPI Comments History of Present Illness Details 69-year-old male with history of hypertension, erectile dysfunction, PVCs, PEYMAN, and alcohol use disorder presents to the office today for management of chronic conditions as well as to establish care. Hypertension-BP on recheck today 120/68. On metoprolol 50 mg daily PVCs-PVC burden 6%. Following with Dr. Cain. Continues on metoprolol. Asymptomatic-no lightheadedness, palpitations, chest pain. No syncope Erectile dysfunction-sildenafil PEYMAN-not using CPAP. Following with cardiology. Per patient, given weight loss, was advised he no longer requires use of CPAP Alcohol use disorder-reports drinking 6 beers on a daily basis. Former smoker-reports smoking for 10-15 years, quit 25 years ago. Lung cancer screening not indicated no concerns Health Maintenance Last colonoscopy- UTD. 02/28/24, next due 02/27/2029, [address] Corral ROS: General: No fevers, malaise, unintentional weight loss HEENT: No blurred vision, diplopia. No sore throat, nasal congestion, rhinorrhea, sinus pain, ear pain Cardiovascular: No chest pain, palpitations, or leg edema Respiratory: No shortness of breath, wheezing, cough MSK: No myalgia, back pain Neuro: No headaches, weakness, paresthesias Skin: No rashes or lesions EXAM: Constitutional - Awake and Alert, No apparent distress Eyes - PERRLA, EOMI Cardiovascular - S1S2, RRR, No edema Respiratory - Normal lung expansion, Normal respiratory effort, No respiratory distress, CTA bilaterally Extremities - no calf tenderness bilaterally, no swelling Skin - Warm/Dry Neurological - Alert & oriented x3 Psychological - Appropriate affect [facility] Medical History (Updated 07/08/24 @ 07:59 by DESTINY Roque) HTN (hypertension) Alcohol use disorder PVC (premature ventricular contraction) Surgical History (Updated 07/05/24 @ 15:52 by Jessica Walls) H/O colonoscopy (~02/28/24) No pertinent past surgical history Family History Father Atrial fibrillation Mother No problems noted. Social History Patient Tobacco Use Status: Former Tobacco user Years Smoked: 1994 Substance Use Type: Marijuana Questionnaire PHQ-9 Over the last 2 weeks, how often have you been bothered by any of the following problems? 1. Little interest or pleasure in doing things: not at all 2. Feeling down, depressed, or hopeless: not at all 3. Trouble falling or staying asleep, or sleeping too much: not at all 4. Feeling tired or having little energy: not at all 5. Poor appetite or overeating: not at all 6. Feeling bad about yourself - or that you are a failure or have let yourself or your family down: not at all 7. Trouble concentrating on things, such as reading the newspaper or watching television: not at all 8. Moving or speaking so slowly that other people could have noticed. Or the opposite - being so fidgety or restless that you have been moving around a lot more than usual: not at all 9. Thoughts that you would be better off or of hurting yourself in some way: not at all Total score: 0 Source: Developed by Drs. Shaq Gerard, Christina Vargas, Castro Zamora and colleagues, with an educational karissa from [employer]. Thrive Questionnaire Date Thrive assessed: 07/08/24 I am a: Patient What is your living situation today?: I have a steady place to live Within the past 12 months, did the food you bought not last and you didn't have the money to get more?: Never true Within the past 12 months, did you worry whether your food would run out before you got money to buy more?: Never true Do you have trouble paying for medicines?: No Do you have trouble getting transportation to medical appointments?: No Do you have trouble paying your heating and electricity bill?: No Do you have trouble taking care of your child, family member or friend?: No Do you have trouble with day-to-day activities such as bathing, preparing meals, shopping, managing finances, etc.?: No Are you currently unemployed and looking for a job?: No Are you interested in more education?: No Please select the resources that you would like help with: None THRIVE Score: 0 TIFFANIE-7 AMB Questionnaire TIFFANIE-7 Date TIFFANIE - 7 assessed: 07/08/24 Feeling nervous, anxious, or on edge: 0 = Not at all Not being able to stop or control worryin = Not at all Worrying too much about different things: 0 = Not at all Trouble relaxin = Not at all Being so restless that it is hard to sit still: 0 = Not at all Becoming easily annoyed or irritable: 0 = Not at all Feeling afraid as if something awful might happen: 0 = Not at all Total TIFFANIE-7 score (0-4 normal; 5-9 mild; 10-14 moderate; 15-21 severe): 0 Source: Developed by Drs. Shaq Gerard, Christina Vargas, Castro Zamora and colleagues, with an educational karissa from [employer]. Physical exam (Primary Care) Vital Signs: Last Vital Signs Temp 99.0 F 07/08/24 07:58 Pulse 75 07/08/24 07:58 Resp 18 07/08/24 07:58 BP 120/68 07/08/24 08:09 Pulse Ox 96 07/08/24 07:58 Oxygen Delivery Method Room Air 07/08/24 07:58 BMI result Body Mass Index 31.3 Tobacco/Smoking Status: Tobacco use Status Patient Tobacco Use Status Former Tobacco user 07/08/24 07:57 Coding Level of Care Code New Pt Level 4 (78625) Complex EM visit Add On G2211 Diagnoses PVC (premature ventricular contraction) I49.3 Alcohol use disorder F10.90 Erectile dysfunction N52.9 PEYMAN (obstructive sleep apnea) G47.33 HTN (hypertension) I10 Assessment & Plan Assessment & Plan (1) PVC (premature ventricular contraction): Code(s): I49.3 - Ventricular premature depolarization Category: Medical Plan: Stable, asymptomatic. Continue metoprolol 50 mg ER daily. Continue following with cardiology (2) Alcohol use disorder: Code(s): F10.90 - Alcohol use, unspecified, uncomplicated Category: Medical Plan: Continues consuming alcohol in excess. He is counseled on recommendations for daily/weekly use. Highly encouraged to cut back or discontinue alcohol consumption as this is likely contributing to his comorbidities. (3) Erectile dysfunction: Comment: Maximum daily therapy Code(s): N52.9 - Male erectile dysfunction, unspecified Category: Medical Plan: Stable. Continue to tadalafil (4) PEYMAN (obstructive sleep apnea): Code(s): G47.33 - Obstructive sleep apnea (adult) (pediatric) Category: Medical Plan: Stable. Per patient, Cardiology states that given weight loss, no CPAP advised. He is not interested in updated sleep study. Encouraged ongoing weight loss efforts (5) HTN (hypertension): Code(s): I10 - Essential (primary) hypertension Category: Medical Plan: Controlled on recheck. Continue metoprolol 50 mg ER. Plan Follow-up in the office in 6 months. Labs to be completed prior to visit. Continue medications as prescribed. Cut back on alcohol consumption.
[2024-07-08 07:58] VITALS: BP 132/90; PULSE 75; RESP 18; TEMP 37.2; O2SAT 96; BMI 31.3
[2024-07-08 08:09] VITALS: BP 120/68
== END 2024-07-08 08:12 | disposition home or self-care (01) ==
LOC: HO.HMCHD 07:53
PROVIDERS: PCP Physician Assistant; Visit Provider Physician Assistant
DX: I49.3 Ventricular premature depolarization (principal); F10.90 Alcohol use, unspecified, uncomplicated; N52.9 Male erectile dysfunction, unspecified; G47.33 Obstructive sleep apnea (adult) (pediatric); I10 Essential (primary) hypertension

== ENCOUNTER → 2024-07-08 07:52 | Outpatient (BNVA) | payer MEDICARE, SELFPAY | PROVIDERS: PCP Physician Assistant; Visit Provider Physician Assistant | DX: I10 Essential (primary) hypertension (principal); N52.9 Male erectile dysfunction, unspecified; G47.33 Obstructive sleep apnea (adult) (pediatric); I49.3 Ventricular premature depolarization; F10.90 Alcohol use, unspecified, uncomplicated | CPT/HCPCS: 96127; 99202 ==

== ENCOUNTER 2024-09-12 09:58 | Outpatient (AMB) | payer MEDICARE, SELFPAY ==
--- NOTE | 2024-09-12 10:03 | AM.OFFVISMDC ---
Intake Vital Signs 09/12/24 10:06 Height 6 ft Weight 228 lb 6 oz BMI 31.0 BP 134/76 Blood Pressure Location Lt brachial Position Sitting Respiration 13 Pulse 72 Pulse Source Pulse Oximeter Temp 97.2 F Temp Source Oral Pulse Oximetry (%) 98 Oxygen Delivery Method Room Air Intake Visit Reasons: sharmaine from ny/kyw Intake Note: SHARMAINE to establish care and AWV [employer] Required: No Allergies No Known Allergies Allergy (Verified 09/12/24 10:14) Medication List - Last Reconciled 09/12/24 by Lottie Cross, POOL INSTALLER-BC brimonidine 0.2% 1 drp ophthalmic-Right Q12H metoprolol succinate ER 50 mg PO DAILY prednisolone acetate 1% 1 drp ophthalmic-Right QID tadalafil 10 mg PO DAILY PRN 90 days tadalafil 20 mg PO ONCE PRN 30 days Do you need a note to return to daycare/school/sports/work: No HPI HPI Comments History of Present Illness Details 69-year-old male with hypertension, erectile dysfunction, PVCs, PEYMAN, alcohol use disorder, Former smoker-reports smoking for 10-15 years, quit 25 years ago, glaucoma Here today for AWV. The Medicare Annual Wellness Visit (AWV) is a yearly appointment with a health professional to identify health risks and help reduce them and to create or update a personalized prevention plan. During a Medicare AWV, health professionals should also review any current opioid prescriptions, detect any cognitive impairment, and establish or update medical and family history. SurgHx: none FHx: Brother x 2 with cancer ; Sister . SocHx: , lives alone. Step children. Worked at [employer] in [place] Maintenance: See scanned preventative medicine assessment with personalized health plan and screening schedule. Colon: 02/28/24, next due 02/27/2029, [address] Corarl Vaccines: Tdap 2024, PCV 13 PPSV 23 UTD, Shingles UTD AAA screen: EKG: not done; active w/ Cards [place] of Care: GI Cards Uro Pulm Optho Kristin Dunne Visual Acuity: Glasses, active w/ Optho Hearing Screening: some mild hearing loss; no interest audiogram at this time. ACP: HCP Y - Dtr Jocelyne ACP: Does not have, provided MOLST and 5 wishes today, reviewed. I dont want anything, just let me go Dietary/Nutrition/Exercise Edu provided: Y During the course of the visit the patient was educated and counseled about appropriate screening and preventative services. Patient instructions were provided to the patient in written or electronic format. I have reviewed and verified the above information. History of Present Illness - The patient is a 69-year-old male presenting for an annual Medicare visit and establishment of care. - Previous PCP Dr Cagle; did see Krista Ny x 1. Notes reviewed. - Erectile Dysfunction: Managed by urology, on tadalafil . - Alcohol Use Disorder: Consumes alcohol daily. - Hypertension: Managed on metoprolol with cardiology involvement. - PVCs: Monitored by cardiology. - Obstructive Sleep Apnea: Difficulty tolerating CPAP. - Family history significant for cancer in two brothers four years ago. - Lives independently, self-reliant for daily activities. 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 - Cardiovascular: Denies any new cardiac symptoms. - Respiratory: Indicates issues with CPAP tolerance; denies other respiratory complaints. - Visual: Reports glaucoma or macular issues requiring frequent ophthalmologic care. - Hearing: Mild hearing loss acknowledged, denies recent evaluation. - Gastrointestinal: Denies issues with bowel movements or urination. Physical Exam General: Well developed, well nourished, in no acute distress. Appears stated age. Head: Normocephalic, atraumatic. Eyes: Pupils are equal, round and reactive to light and accommodation. Conjunctivae are clear. Vision grossly normal. Ears: TMs clear AU, EACS WNL. Nose: Patent, without discharge. Neck: Supple, no adenopathy or thyromegaly. Breast: Edu on SBE Lungs: Clear to auscultation bilaterally. No rales, rhonchi or wheeze noted. Good air flow in all ng. Heart: Regular rate and rhythm. No murmurs, click, rubs or gallops are noted. Abdomen: Bowel sounds present in all quadrants. The abdomen is soft, nontender, with no masses or organomegaly noted. No hernias are noted. : Deferred. Reviewed ANTONINO & recommendations for routine NATIONAL SECRETARY Pulses: Peripheral pulses are equal and palpable bilaterally. Extremities: No clubbing, cyanosis nor edema is noted. Neurologic: Gait and station normal. Cranial Nerves 2-12 intact. Motor strength grossly symmetrical and intact. No sensory loss. Balance normal. Skin: No rashes, ulcers, or lesions noted. Turgor is good. Skin color is good. Hair and nails are without abnormalities. Psych: Normal eye contact, affect and mood appropriate, and normal interactions. Patient is alert and appropriate to context. Results - Labs: Last blood work completed January 2024 Discussion Notes During the visit, I reviewed the patient's current medical conditions, including erectile dysfunction, hypertension, premature ventricular contractions, and obstructive sleep apnea. We discussed the management of these conditions, including the continuation of tadalafil for erectile dysfunction and metoprolol for blood pressure and cardiac management. I emphasized the importance of adhering to the treatment plan for hypertension and discussed his alcohol use disorder, encouraging a reduction in alcohol intake. We addressed his intolerance to CPAP for sleep apnea, and I outlined the importance of discussing potential alternative treatments. I reviewed his up-to-date colonoscopy and vaccinations, with recommendations to maintain regular influenza and COVID-19 immunizations. Lastly, I provided advice on healthy aging, and lifestyle choices, including a review of healthcare documents with his daughter. He was encouraged to complete his laboratory assessment today, and all results will be mailed to him. Patient was given time to ask questions. All questions were answered to their satisfaction. Assessment and Plan 1. Erectile Dysfunction - Continue tadalafil. - Care per Uro 2. Alcohol Use Disorder - Encourage reduced alcohol intake. 3. Hypertension - Maintain metoprolol regimen. 4. Premature Ventricular Contractions - Stable under cardiology. 5. Obstructive Sleep Apnea - Explore CPAP alternatives - cannot tolerate - Lost wt and feels this has helped. 6. Health Maintenance - Maintain upcoming vaccination schedule. LABS TODAY, RTO 6 MO ROUTINE FU, SOONER PRN Patient Instructions - Continue taking your medications as instructed. - Schedule flu and COVID-19 vaccines between October and December. - Reduce alcohol consumption. - Visit the lab today for blood work and await mailed results. - Follow up with urology, cardiology, and your computer lab para professional as recommended. Consent Patient was informed and verbally consented to the use of an ambient scribe for clinic note documentation during this visit. An additional 30 minutes was spent addressing the problem(s) noted at todays visit. This includes time spent before the visit reviewing the chart, time spent during the visit, and time spent after the visit on documentation reviewing laboratory results, diagnostic imaging, medications, performing a medically necessary evaluation, counseling on diagnoses, care coordination, ordering appropriate tests, ordering appropriate medications, review of tests performed by other providers, reporting test results with the patient, communication with other healthcare providers. [facility] Medical History (Updated 09/12/24 @ 10:38 by [facility] Alcohol use disorder HTN (hypertension) PVC (premature ventricular contraction) Surgical History (Updated 07/05/24 @ 15:52 by Jessica Walls) H/O colonoscopy (~02/28/24) No pertinent past surgical history Family History Father Atrial fibrillation Mother No problems noted. Social History Patient Tobacco Use Status: Former Tobacco user Years Smoked: 1994 Substance Use Type: Marijuana Questionnaire Medicare Wellness Checkup [age] What gender do you identify with?: male During the past 4 weeks, how much have you been bothered by emotional problems such as feeling anxious, depressed, irritable, sad or downhearted, and blue?: not at all During the past 4 weeks, has your physical & emotional health limited your social activities with family, friends, neighbors, or groups?: not at all During the past 4 weeks, how much bodily pain have you generally had?: no pain During the past 4 weeks, was someone available to help you if you needed & wanted help?: yes, as much as I wanted During the past 4 weeks, what was the hardest physical activity you could do for at least 2 minutes?: moderate Can you get to places out of walking distance without help? (For eg., can you travel alone on buses, taxis or drive your car?): Yes Can you go shopping for groceries or clothes without someone's help?: Yes Can you prepare your own meals?: Yes Can you do your housework without help?: Yes Because of any health problems, do you need the help of another person with your personal care needs such as eating, bathing, dressing or getting around the house?: No Can you handle your own money without help?: Yes During the past 4 weeks, how would you rate your health in general?: very good During the past 4 weeks how have things been going for you?: pretty well Are you having difficulties driving your car?: no Do you always fasten your seat belt when you are in a car?: yes, usually During past 4 weeks, have you been bothered by the following: never: Falling or dizzy when standing up, Sexual problems?, Trouble eating well?, Teeth or denture problems?, Problems using the telephone? and Tiredness or fatigue? Have you fallen 2 or more times in the past year?: No Are you afraid of falling?: No Are you a smoker?: no During the past 4 weeks, how many drinks of wine, beer, or other alcoholic beverages did you have?: 10 or more per week Do you exercise for about 20 minutes 3 or more times a week?: yes, some of the time Have you been given information to help with the following?: no: Hazards in your house that might hurt you? and no: Keeping track of your medications? How often do you have trouble taking medicines the way you have been told to take them?: I always take medicine as prescribed How confident are you that you can control & manage most of your health problems?: very confident What is your race?: White Activity of Daily Living Bathing - sponge bath, tub bath or shower: receives no assistance (gets in/out by self, if usual bathing means Dressing - getting clothes from closets & drawers, including inner/outer garments & fasteners.: gets clothes & gets completely dressed without help Toileting - going to the 'toilet room' for urine/bowel elimination & cleaning self/arranging clothes: goes to toilet room, cleans self, arranges clothes without help Transfer: moves in & out of bed and chair without help (may use support object) Continence: controls urination/bowel movements completely by self Feeding: feeds self without help Total Score: 0 Information obtained from: patient Using telephone: independent Traveling: independent Shopping: independent Preparing meals: independent Housework: independent Taking medicine: independent Managing money: independent PHQ-9 Over the last 2 weeks, how often have you been bothered by any of the following problems? 1. Little interest or pleasure in doing things: not at all 2. Feeling down, depressed, or hopeless: not at all 3. Trouble falling or staying asleep, or sleeping too much: not at all 4. Feeling tired or having little energy: not at all 5. Poor appetite or overeating: not at all 6. Feeling bad about yourself - or that you are a failure or have let yourself or your family down: not at all 7. Trouble concentrating on things, such as reading the newspaper or watching television: not at all 8. Moving or speaking so slowly that other people could have noticed. Or the opposite - being so fidgety or restless that you have been moving around a lot more than usual: not at all 9. Thoughts that you would be better off or of hurting yourself in some way: not at all Total score: 0 Depression Screening Interpretation: Negative Depression Screening Done: Yes 02600 - PHQ-9 Billing: Yes Source: Developed by Drs. Shaq Gerard, Christina Vargas, Castro Zamora and colleagues, with an educational karissa from [employer]. Physical Exam Vital Signs: Last Vital Signs Temp 97.2 F 09/12/24 10:06 Pulse 72 09/12/24 10:06 Resp 13 09/12/24 10:06 BP 134/76 09/12/24 10:06 Pulse Ox 98 09/12/24 10:06 Oxygen Delivery Method Room Air 09/12/24 10:06 BMI result Body Mass Index 31.0 Results AMB Hemoglobin A1c AMB Hemoglobin A1c 4.6 % Last Edit by Virgil Broderick MA on 09/12/24 10:16 Assessment & Plan Assessment & Plan (1) Encounter for subsequent annual wellness visit (AWV) in Medicare patient: Onset Date: ~09/12/24 Code(s): Z00.00 - Encounter for general adult medical examination without abnormal findings (2) Laboratory exam ordered as part of routine general medical examination: Code(s): Z00.00 - Encounter for general adult medical examination without abnormal findings (3) Alcohol use disorder: Code(s): F10.90 - Alcohol use, unspecified, uncomplicated (4) HTN (hypertension): Code(s): I10 - Essential (primary) hypertension Qualifiers: Hypertension type: primary hypertension Qualified Code(s): I10 - Essential (primary) hypertension (5) PVC (premature ventricular contraction): Code(s): I49.3 - Ventricular premature depolarization (6) Erectile dysfunction: Comment: Maximum daily therapy Code(s): N52.9 - Male erectile dysfunction, unspecified Qualifiers: Erectile dysfunction type: due to other cause Qualified Code(s): N52.8 - Other male erectile dysfunction (7) PEYMAN (obstructive sleep apnea): Comment: not on cpap, cannot tolerate Code(s): G47.33 - Obstructive sleep apnea (adult) (pediatric) (8) ACP (advance care planning): Code(s): Z71.89 - Other specified counseling (9) Encounter to establish care with new provider: Code(s): Z76.89 - Persons encountering health services in other specified circumstances Plan . Orders: Orders AMB Hemoglobin A1c Today Z13.9 - Encounter for screening, unspecified Lipid Panel Today Z00.00 - Encounter for general adult medical examination without abnormal findings Microalbumin, Random (w Creat) Today Z00.00 - Encounter for general adult medical examination without abnormal findings TSH reflex Free T4 Today Z00.00 - Encounter for general adult medical examination without abnormal findings Vitamin D 25-OH Total Today Z00.00 - Encounter for general adult medical examination without abnormal findings Complete Blood Count no Diff Today Z00.00 - Encounter for general adult medical examination without abnormal findings Comprehensive Met. Panel Today Z00.00 - Encounter for general adult medical examination without abnormal findings Prostate Specific Antigen Scr Today Z00.00 - Encounter for general adult medical examination without abnormal findings Vitamin B12 and Folate Today Z00.00 - Encounter for general adult medical examination without abnormal findings Patient Instructions: Walk-In Care (Urgent Care): We Make it Easy Walk-in for urgent medical issues such as: ? Seasonal Allergies ? Insect Bites ? Cough ? Diarrhea ? Acute Asthma Attacks ? Back, Knee or Joint Pain ? Ear Infection ? Fever without a Rash ? Headaches ? Nausea ? [place] Eye, Rash or Skin Irritation ? Sore Throat ? Sports Physicals ? Vomiting Most insurances are accepted. Patients do not need to be part of the [facility] to seek care at the walk-in clinic. Locations [address] , [place] [address] ? [phone] [facility] Walk-In Care in [place] provides services to ages 18 and over. Open Monday-Monday: 8 a.m. to 5 p.m. and Monday: 9 a.m. to 3 p.m.* *Hours may vary due to staffing availability. To confirm Walk-In Care hours in [place], please call [phone]. [address] [place] [id number] ? [phone] [facility] Walk-In Care in [place] provides services to ages 12 and over. Open Monday-Monday: 8 a.m. to 5 p.m. Hours may vary due to staffing availability. To confirm Walk-In Care hours in [place], please call [phone]. LABORATORY SERVICES: [facility] Lab ? Primary Location [address] [place] [address] Monday through Monday 6:00 AM ? 5:00 PM Monday 7:00 AM ? 11:00 AM* [phone] The [facility] Lab is centrally located near the front entrance of the [facility] for easy outpatient access. Convenient parking is provided for outpatients. *Hours may vary due to staffing availability. To confirm Laboratory hours for any location, please call [phone]. Offsite Location For your convenience, we offer offsite laboratory draw stations at the following locations: [address] [place] [address] ? [address], [address] Monday through Monday 7:30 AM ? 1:00 PM* [phone] *Hours may vary due to staffing availability. To confirm Laboratory hours for any location, please call [phone]. [place] ? [address] Monday through Monday 6:00 AM ? 3:30 PM* Monday 6:30 AM ? 3 PM* [phone] *Hours may vary due to staffing availability. To confirm Laboratory hours for any location, please call [phone]. [address] [facility] Monday through Monday 7:30 AM ? 4:00 PM* [phone] *Hours may vary due to staffing availability. To confirm Laboratory hours for any location, please call [phone]. [address] [facility] Monday through 9:00 AM ? 4:00 PM* *Hours may vary due to staffing availability. To confirm Laboratory hours for any location, please call [phone]. Appointments are not necessary. Walk-ins are welcome. Like all the departments throughout the [facility], our Lab undergoes frequent reviews to ensure the quality and accuracy of test results, and our staff takes special pride in its status as a nationally accredited facility. Patient Portal: ONE PATIENT. ONE RECORD. BETTER CARE. [facility] has a fully integrated, cutting-edge mobile electronic health information system that has revolutionized the way we care for our patients and manage our organization. This system improves communication and coordination enabling us to provide safe, higher-quality care, and an overall positive experience for staff and patients. Our first priority, as always, is to deliver the highest quality care possible. The system is running in the background supporting that priority. This portal is for all [facility] services and practices. If you are experiencing any technical difficulties with enrolling or logging into the Patient Portal please complete the [facility] Patient Portal Technical Support Form. [facility] now offers a new secure on-line interactive tool for patients to review their health information ? ?Patient Portal. This interactive web portal will enable patients and their families to take an active role in their care by providing easy, secure access to their health information via the internet. The Patient Portal provides patients with instant access to their health information, including laboratory results, medications, allergies, demographic information, visit history, and more. In addition to managing their own care, parents and health care proxies with authorized consent will appreciate the ability to access the records of those individuals for whom they provide care. Please note: if you wish to gain access (Proxy) to another patient?s portal, you will be required to come to the Medical Records Department in person at [facility]. Both the patient giving proxy access and the proxy will need to provide photo identification and complete the appropriate authorization. The Patient Portal also allows track their appointments online. The [facility] Patient Portal also saves patients time by allowing them to submit updates to their demographic and contact information prior to their visits. Portal email notifications will also alert patients to any new activity on their portal, such as test results and new appointments. In order to initially enroll in the [facility] Patient Portal, you will need to enter some required information including the following: your [facility] Medical Record number your personal home email address name date of Please note: In order to enroll in the [facility] Patient Portal, we need to have your email address on file in your electronic medical record. ?The email address needs to be specific for one person (yourself) in order for your Portal enrollment to be successful. ?You can update your email address in person with our Registration staff when you are registering for a hospital visit. ?Otherwise, you will need to come to the Health Information Management (Medical Records) Department at [facility]. ?We are open from Monday ? Monday from 7:30 a.m. ? 4:30 p.m. ?You will be required to present a photo id. Once you have successfully enrolled in the Patient Portal, you will receive a one-time user id and password for the Portal, sent to your email address. ?This will allow you to log into the Patient Portal within 99 hrs and reset your own logon id and password, and define personal security questions. ?Once your permanent login and password have been set, you can log into the [facility] Patient Portal at any time via the blue button above or from the Portal Logon button on any page of the [facility] website. [facility] encourage all of our patients to enroll in Patient Portal as it presents a valuable opportunity for patients and their families to actively participate in their care and stay healthy Welcome to [facility]. ?We look forward to working with you. Health screenings for men You should visit your health care provider regularly, even if you feel healthy. The purpose of these visits is to: Screen for medical issues Assess your risk for future medical problems Encourage a healthy lifestyle Update vaccinations and other preventive care services Help you get to know your provider in case of an illness Information Even if you feel fine, you should still see your provider for regular checkups. These visits can help you avoid problems in the future. For example, the only way to find out if you have high blood pressure is to have it checked regularly. High blood sugar and high cholesterol level also may not have any symptoms in the early stages. Simple blood tests can check for these conditions. There are specific times when you should see your provider or receive specific health screenings. The [place] Preventive Services Task Force publishes a list of recommended screenings. Below are screening guidelines for men ages 40 to 64. BLOOD PRESSURE SCREENING Have your blood pressure checked at least once every year. Watch for blood pressure screenings in your area. Ask your provider if you can stop in to have your blood pressure checked. Ask your provider if you need your blood pressure checked more often if: You have diabetes, heart disease, kidney problems, or are overweight or have certain other health conditions You have a first-degree relative with high blood pressure You are Black Your blood pressure top number is from 120 to 129 mm Hg, or the bottom number is from 70 to 79 mm Hg If the top number is 130 mm Hg or greater or the bottom number is 80 mm Hg or greater, this is considered stage 1 hypertension. Schedule an appointment with your provider to learn how you can lower your blood pressure. Effects of age on blood pressure CHOLESTEROL SCREENING Cholesterol screening should begin at age 35 for men with no known risk factors for coronary heart disease. Repeat cholesterol screening should take place: Every 5 years for men with normal cholesterol levels More often if changes occur in lifestyle (including weight gain and diet) More often if you have diabetes, heart disease, kidney problems, or certain other conditions COLORECTAL CANCER SCREENING If you are under age 45, talk to your provider about getting screened. You may need to be screened if you have a strong family history of colon cancer or polyps. Screening may also be considered if you have risk factors such as a history of inflammatory bowel disease or polyps. If you are age 45 to 75, you should be screened for colorectal cancer. There are several screening tests available: A stool-based fecal occult blood (gFOBT) or fecal immunochemical test (FIT) every year A stool sDNA test every 1 to 3 years Flexible sigmoidoscopy every 5 years or every 10 years with stool testing FIT done every year CT colonography (virtual colonoscopy) every 5 years Colonoscopy every 10 years You may need a colonoscopy more often if you have risk factors for colorectal cancer, such as: Ulcerative colitis A personal or family history of colorectal cancer A history of growths in your colon called adenomatous polyps DENTAL EXAM Go to the dentist once or twice every year for an exam and cleaning. Your dentist will evaluate if you have a need for more frequent visits. DIABETES SCREENING All adults who do not have risk factors for diabetes should be screened starting at age 35 and repeated every 3 years. If you have other risk factors for diabetes, such as a first degree relative with diabetes, overweight or obesity, high blood pressure, prediabetes, or a history of heart disease, you may be tested more often. If you are overweight and have other risk factors, such as high blood pressure and are planning to become , screening is recommended. EYE EXAM Have an eye exam every 2 to 4 years ages 40 to 54 and every 1 to 3 years ages 55 to 64. Your provider may recommend more frequent eye exams if you have vision problems or glaucoma risk. Have an eye exam that includes an examination of your retina (back of your eye) at least every year if you have diabetes. IMMUNIZATIONS Commonly needed vaccines include: Flu shot: get one every year COVID-19 vaccine: ask your provider what is best for you Tetanus-diphtheria and acellular pertussis (Tdap) vaccine: have as one of your tetanus-diphtheria vaccines if you did not receive it as an adolescent Tetanus-diphtheria: have a booster (or Tdap) every 10 years Varicella vaccine: receive 2 doses if you never had chickenpox or the varicella vaccine and were born in 1980 or after Hepatitis B vaccine: receive 2, 3, or 4 doses, depending on your exact circumstances, if you did not receive these as a child or adolescent, until age 59 Shingles (herpes zoster) vaccine: at or after age 50 Ask your provider if you should receive other immunizations, especially if you have certain medical conditions, such as diabetes or are at increased risk for some diseases such as pneumonia. INFECTIOUS DISEASE SCREENING Screening for hepatitis C: all adults ages 18 to 79 should get a one-time test for hepatitis C. Screening for human immunodeficiency virus (HIV): all people ages 15 to 65 should get a one-time test for HIV. Depending on your lifestyle and medical history, you may need to be screened for infections such as syphilis, chlamydia, and other infections. LUNG CANCER SCREENING You should have an annual screening for lung cancer with low-dose computed tomography (LDCT) if: You are age 50 to 80 years AND You have a 20 pack-year smoking history AND You currently smoke or have quit within the past 15 years OSTEOPOROSIS SCREENING If you are age 50 to 64 and have risk factors for osteoporosis, you should discuss screening with your provider. Risk factors can include long-term steroid use, low body weight, smoking, heavy alcohol use, having a fracture after age 50, or a family history of hip fracture or osteoporosis. Osteoporosis PHYSICAL EXAM All adults should visit their provider from time to time, even if they are healthy. The purpose of these visits is to: Screen for diseases Assess risk of future medical problems Encourage a healthy lifestyle Update vaccinations and other preventive care services Maintain a relationship with a provider in case of an illness Your height, weight, and body mass index (BMI) should be checked at every exam. During your exam, your provider may ask you about: Depression and anxiety Diet and exercise Alcohol and tobacco use Safety, such as use of seat belts and smoke detectors Your medicines and risk for interactions PROSTATE CANCER SCREENING If you're 55 through 69 years old, before having the test, talk to your provider about the pros and cons of having a PSA test. Ask about: Whether screening decreases your chance of dying from prostate cancer. Whether there is any harm from prostate cancer screening, such as side effects from testing or overtreatment of cancer when discovered. Whether you have a higher risk of prostate cancer than others. If you are age 55 or younger, screening is not generally recommended. You should talk with your provider about if you have a higher risk for prostate cancer. Risk factors include: Having a family history of prostate cancer (especially a brother or father) Being If you choose to be tested, the PSA blood test is repeated over time (yearly or less often), though the best frequency is not known. Prostate examinations are no longer routinely done on men with no symptoms. Prostate cancer SKIN EXAM Your provider may check your skin for signs of skin cancer, especially if you're at high risk. People at high risk include those who have had skin cancer before, have close relatives with skin cancer, or have a weakened immune system. TESTICULAR EXAM The US Preventive Services Task Force (USPSTF) now recommends against performing testicular self-exams. Doing testicular self-exams has been shown to have little to no benefit. Quality Reporting (2019) Adult ([facility] 138/03/30/68) Smoking risk assessment performed?: Yes Patient Tobacco Use Status: Former Tobacco user Depression screening performed: Yes Screen Results: Yes Negative screen Recommended changes not done: EKG (active w/ cards ) Systolic BP not done?: No Diastolic BP not done?: No BMI screening not done: No BMI High - Follow Up: Yes High-plan (lifestyle ) Sexual Activity Screening ([facility] 153) Sexually active?: No Immunizations (CMS 147, 117) Annual Influenza Vaccine: No Measles Antibody Test: No Mumps Antibody Test: No Rubella Antibody Test: No Varicella Antibody Test: No Anti Hepatitis A IgG Antigen test: No Anti Hepatitis B Virus Surface Ab test: No Fall Risk Screening ([facility] 139) Last assessed Fall Risk: 09/12/24 Fall risk assessment: No Falls in past year Dementia Assessment ([facility] 149) Cognitive assessment recorded: Yes Assessment of cognition with standardized tool: Yes Depression/Bipolar (159/160/161/177) PHQ-9: Total score: 0 Ophthalmol:Cataracts Visual Acuity (133) Visual acuity exam performed: Yes (declined in office exam; UTD on outside exam 2024) Coding Level of Care Code Medicare Subsequent (G0439) Est Pt Level 4 (27533) Diagnoses Encounter for subsequent annual wellness visit (AWV) in Medicare patient Z00.00 Laboratory exam ordered as part of routine general medical examination Z00.00 Alcohol use disorder F10.90 Primary hypertension I10 Hypertension type: primary hypertension PVC (premature ventricular contraction) I49.3 Other male erectile dysfunction N52.8 Erectile dysfunction type: due to other cause PEYMAN (obstructive sleep apnea) G47.33 ACP (advance care planning) Z71.89 Encounter to establish care with new provider Z76.89 CPT Codes Advance Care Planning - Time spent: 1-15 minutes, not on file ([id number]) Additional Codes PHQ-9 - 72589 - PHQ-9 Billing: Yes ([id number]) Advance Care Planning Advance Care Planning discussion: Exists, not on file Date of discussion: 09/12/24 Forms completed: Health Care Proxy, MOLST and Living will Time spent: 1-15 minutes, not on file Actual minutes spent: 5 Did not discuss due to Cultural/Spiritual beliefs: Yes
[2024-09-12 10:06] VITALS: BP 134/76; PULSE 72; RESP 13; TEMP 36.2; O2SAT 98; BMI 31.0
--- OUTSIDE RECORDS SUMMARY | 2024-09-12 10:27 | XMS_ITS | Clinical Summary ---
Author Organization [facility] Address [address] [phone] Phone Care Team Providers Care Welding Machine Operator Name Role Phone Khoa Cagle MD Primary Care Provider Allergies No known active allergies Medications metoprolol succinate (TOPROL-XL) 50 MG 24 hr tablet Take 1 tablet by mouth every morning. 12/29/2023 Active Immunizations Immunization Administration Dates Next Due Tdap 02/09/2024 Social History Tobacco Use Types Packs/Day Years Used Date Smoking Tobacco: Never Smokeless Tobacco: Never Tobacco Cessation:Counseling Given: Not Answered Education Answer Date Recorded Are you interested in more education? Not on ciara e 02/09/2024 Are you concerned about learning? Not on file 02/09/2024 No 02/09/2024 No 02/09/2024 Digital Access Answer Date Recorded No 02/09/2024 No 02/09/2024 Reliable internet access at home? Not on file 02/09/2024 Device with a working camera? Not on file Sex and Gender Information Value Date Recorded Sex Assigned at Not on file Legal Sex Male 8:33 PM EDT Gender Identity Not on file Sexual Orientation Not on file Last Filed Vital Signs Vital Sign Reading Time Taken Comments Blood Pressure 141/77 02/09/2024 10:18 AM EST Pulse 72 02/09/2024 10:18 AM EST Temperature 37.3 C (99.2 F) 02/09/2024 10:18 AM EST Respiratory Rate 16 02/09/2024 10:18 AM EST Oxygen Saturation 97% 02/09/2024 10:18 AM EST Inhaled Oxygen Concentration - - Weight - - Height - - Body Mass Index - - Plan of Treatment Health Maintenance Due Date Last Done Comments LIPID PANEL 1953 DEPRESSION SCREENING 1965 HEPATITIS C SCREENING 1971 COLOGUARD 1998 COLONOSCOPY 1998 COLORECTAL CANCER SCREENING 1998 FIT TEST 1998 FOBT 1998 SIGMOIDOSCOPY 1998 VIRTUAL COLONOSCOPY 1998 COVID-19 VACCINE ( season) 2023 07/15/2023, 12/28/2022, 02/26/2022, Additional history exists Adult Td,Tdap Booster 02/08/2034 02/09/2024 PNEUMOCOCCAL VACCINES (50+ years) Completed 12/01/2020, 02/13/2019 RSV VACCINE Completed 07/15/2023 ZOSTER VACCINES Completed 07/15/2023, 05/05/2023 SMOKING STATUS SCREENING (Once After 26 Yrs) Completed 02/09/2024 HEPATITIS A VACCINES Aged Out No long er eligible based on patient's age to complete this topic HIB VACCINES Aged Out No longer eligi ble based on patient's age to complete this topic MENINGOCOCCAL VACCINES (ACWY) Aged Out No longer eligible based on patient's age to complete this topic MENINGOCOCCAL VACCINES (B) Aged Out N o longer eligible based on patient's age to complete this topic Medical Devices Not on file Insurance MEDICARE PART A & B MEDICARE PART A & B MEDICARE PART A & B MEDICARE PART A & B MEDICARE PART A & B MEDICARE PART A & B Care Teams Welding Machine Operator Relationship Specialty Start Date End Date Khoa Cagle MD [address] [place] [address] [place] [address] PCP - General Internal Medicine 02/09/24 Additional Source Comments The information contained in this document represents components of the legal health record. It is not the complete legal health record.[facility]
== END 2024-09-12 10:32 | disposition home or self-care (01) ==
LOC: HO.HMCFM 09:59
PROVIDERS: PCP Nurse Practitioner Family; Visit Provider Nurse Practitioner Family
DX: Z00.00 Encounter for general adult medical examination without abnormal findings (principal); I10 Essential (primary) hypertension; F10.90 Alcohol use, unspecified, uncomplicated; I49.3 Ventricular premature depolarization; N52.8 Other male erectile dysfunction; G47.33 Obstructive sleep apnea (adult) (pediatric); Z71.89 Other specified counseling

== ENCOUNTER 2024-09-12 09:58 | Outpatient (REF) | payer MEDICARE, SELFPAY ==
--- OUTSIDE RECORDS SUMMARY | 2024-02-28 03:30 | XMS_ITS ---
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 and Diverticulosis of colon K57.30 Assessments Encounter Date Diagnosis (ICD Code) Assessment Notes Treatment Notes Treatment Clinical Notes Section Notes 02/28/2024 Colon cancer screening (ICD-10 - Z12.11) 02/28/2024 Personal history of adenomatous and serrated colon polyps (ICD-10 - Z86.0101) 02/28/2024 Colon dysplasia (ICD-10 - D12.6) 02/28/2024 Diverticulosis of colon (ICD-10 - K57.30) Plan Of Treatment No Information Progress Notes * YIFAN ALMANZADOB:07/1955 (69 yo M)Acc No.[id number]:02/28/2024 COLON WITH MAC Patient: YIFAN ROJAS Provider: Ras Corral MD :1955 A ge:68 Y S ex:Male Date:02/28/2024 Address:[address] [place], [place] [phone] Pcp:Khoa Cagle (RETIRED )MD Subjective: * Chief Complaints: * 1 . Screening,hx polyps. * Medical History: Objective: * Vitals: Assessment: * Assessment: 1. C olon cancer screening - Z12.11 (Primary) 2 . P ersonal history of adenomatous and serrated colon polyps - Z86.0101 3 . C olon dysplasia - D12.6 ? 4 . D iverticulosis of colon - K57.30 Plan: * Treatment: * Procedure Codes: 4 5380 COLONOSCOPY AND BIOPSY, Modifiers: PT , 0529F INTRVL 3+YRS PTS CLNSCP DOCD, 0528F RCMND FLW-UP 10 YRS DOCD, Modifiers: 1P * * The named appointment provid er may or may not be the originator of this progress note, and it is not deemed complete until electronically signed by the appointment provider. Sign off status: Pending * Provider: Ras Corral MD Date: 0 02/28/2024 Generated for Rafita willson/Sophia/Porfirioitting on: 0 09/12/2024 11:18 AM EDT
--- OUTSIDE RECORDS SUMMARY | 2024-09-12 11:19 | XMS_ITS | Patient Health Record ---
Author Organization [facility] Address [address] [place] [address] Care Team Providers Care Edge Glue Machine Tender Name Role Phone Khoa Cagle MD Primary Care Provider Hellen High Unavailable [phone] Allergies No Known Allergies Reason For Referral No Information Medications Medication SIG (Take, Route, Frequency, Duration) Notes Start Date End Date Status Metoprolol Succinate Active Ciclopirox Olamine 0.77 % 1 application Externally Twice a day; Duration: 30 days Active Ciclopirox 0.77 % 1 application to aff ected area Externally Twice a day to effected nails; Duration: 30 days Active Social History Tobacco Use: [...] 09/13/2023 Encounters Encounter Location Date Provider Diagnosis [facility] [address] [place] [address] 09/13/2023 Hellen Ibarra Tinea unguium B35.1 ; [...] [employer] [address] [place] [address] [phone] [id number] Adelso Tilley Self - patient is the insured Med [employer] [facility] [address] [place] [address] [phone] [id number] Adelso Tilley Self - patient is the insured Medical (General) History Medical History History ICD Code Irregular heartbeat Surgical History Surgery Date(Month/Year) colonoscopy
[2024-09-12 11:46] LABS: Hematocrit 43.1 % (42.0-52.0); Hemoglobin 15.0 g/dl (14.0-18.0); Mean Corpuscular HGB Conc 34.8 g/dl (31.0-36.0); Mean Corpuscular Hemoglobin 34.1 pg (27.0-33.0); Mean Corpuscular Volume 98.0 fL (80.0-98.0); NRBC Abs Auto 0.000 X10*3/uL (0.0-0.012); NRBC Pct Auto 0.0 /100WBC (0.0-0.2); Platelet Count 187 X10*3/uL (160-400); Red Blood Count 4.40 X10*6/uL (4.60-5.80); White Blood Count 8.2 X10*3/uL (4.8-10.8)
[2024-09-12 12:25] LABS: Alanine Aminotransferase 23 U/L (0-40); Albumin Level 4.2 g/dL (3.5-5.0); Alkaline Phosphatase 67 U/L (39-117); Anion Gap 11 (12-20); Aspartate Amino Transferase 25 U/L (5-37); Blood Urea Nitrogen 20 mg/dL (9-16); Calcium 8.7 mg/dL (8.4-10.2); Carbon Dioxide 28 mmol/L (22-29); Chloride 107 mmol/L (96-108); Cholesterol 180 mg/dL (<200); Estimated Glomerular Filt Rate > 60; HDL Cholesterol 63 mg/dL (>40); Potassium 4.1 mmol/L (3.3-5.1); Sodium 142 mmol/L (135-145); Total Protein 6.7 g/dL (6.5-8.0); Triglycerides 52 mg/dL (<150)
[2024-09-12 12:52] LABS: Folate 7.9 ng/mL (> or = 4.0); Vitamin B12 292 pg/mL (200-900)
[2024-09-12 14:50] LABS: Microalbum/Creatinine Ratio Ur 18.7 ug/mg cr (<30)
== END 2024-09-12 09:59 | disposition home or self-care (01) ==
LOC: HO.WFDLDS 09:58
PROVIDERS: PCP Nurse Practitioner Family; Visit Provider Nurse Practitioner Family
DX: Z00.00 Encounter for general adult medical examination without abnormal findings (principal); F10.90 Alcohol use, unspecified, uncomplicated; I10 Essential (primary) hypertension; G47.33 Obstructive sleep apnea (adult) (pediatric); I49.3 Ventricular premature depolarization; N52.8 Other male erectile dysfunction; Z71.89 Other specified counseling; Z76.89 Persons encountering health services in other specified circumstances; Z79.899 Other long term (current) drug therapy; Z12.5 Encounter for screening for malignant neoplasm of prostate; Z87.891 Personal history of nicotine dependence
CPT/HCPCS: 36415; 80053; 80061; 82043; 82306; 82570; 82607; 82746; 83036; 84153; 84443; 85027; 96127; 99212

== ENCOUNTER 2024-11-12 09:45 | Outpatient (AMB) | payer MEDICARE, SELFPAY ==
--- OUTSIDE RECORDS SUMMARY | 2024-02-28 03:30 | XMS_ITS ---
Author Organization [facility] Address [address] [place] [address] Care Team Providers Care Certified Vehicle Fire Investigator Name Role Phone Gurjit (RETIRED) Khoa MULLEN Primary Care Provide Shaq Riggins [phone] REASON FOR VISIT screening,hx polyps Encounters Encounter Location Date Provider Diagnosis [facility] [place] Out[place] [address] [place] [phone] 02/28/2024 Shaq Corral Colon cancer scree lucila [...] Notes * YIFAN ALMANZADOB:07/1955 (69 yo M)Acc No.[id number]:02/28/2024 COLON WITH MAC Patient: YIFAN ROJAS Provider: Ras Corral MD :1955 A ge:68 Y S ex:Male Date:02/28/2024 Address:[address] [place], [place] [id number] Pcp:Khoa Cagle (RETIRED )MD Subjective: * Chief [...] 0 02/28/2024 Generated for Rafita willson/Sophia/Porfirioitting on: 1 11:11 AM EDT
--- NOTE | 2024-11-12 09:48 | MHC.OFFVIS ---
Vital Signs 11/12/24 09:50 Height 6 ft Weight 221 lb 12.56 oz BMI 30.1 BP 120/80 Blood Pressure Location Lt brachial Position Sitting Pulse 75 Pulse Source Monitor Intake Visit Reasons: 1 year fu r/s 10-17-24 Level Vial Curvature Gauger Required: No Accompanied by: Self / Same As Patient Allergies No Known Allergies Allergy (Verified 09/12/24 10:14) Medication List - Last Reconciled 11/12/24 by Gualberto Cain MD brimonidine 0.2% 1 drp ophthalmic-Right Q12H metoprolol succinate ER 50 mg PO DAILY prednisolone acetate 1% 1 drp ophthalmic-Right QID tadalafil 10 mg PO DAILY PRN 90 days tadalafil 20 mg PO ONCE PRN 30 days HPI Comments Details: Adelso returns for follow-up regarding premature ventricular contractions. In the past, detected to have PVCs during colonoscopy. Then referred to Cardiology. Clinically, he states he feels fine. He has got no cardiac symptoms whatsoever. Uses marijuana regularly and relates that depression. He also drinks a lot of alcohol, at least 8 beers daily. Untreated sleep apnea. He is also overweight. It is likely that all of these contribute in some way to the PVCs. No new issues since last seen. [facility] Medical History HTN (hypertension) Alcohol use disorder PVC (premature ventricular contraction) Surgical History H/O colonoscopy (~02/28/24) No pertinent past surgical history Family History Father Atrial fibrillation Mother No problems noted. Social History Patient Tobacco Use Status: Former Tobacco user Years Smoked: 1994 Substance Use Type: Marijuana Review of Systems Const Denies chills, Denies fatigue, Denies fever(s), Denies frequent falls, Denies weakness, Denies weight gain and Denies weight loss ENT Denies dizziness Card Denies chest pain, Denies leg edema, Denies lightheadedness, Denies palpitations, Denies dyspnea and Denies dyspnea on exertion Resp Denies cough, Denies dyspnea and Denies dyspnea on exertion GI Denies hematochezia Musc Denies abnormal gait, Denies muscle weakness, Denies numbness, Denies radiating pain into limb and Denies tingling Neuro Denies abnormal gait, Denies dizziness, Denies frequent falls, Denies numbness, Denies tingling and Denies weakness Endo Denies fatigue and Denies palpitations Physical Exam Vital Signs: Last Vital Signs Pulse 75 11/12/24 09:50 BP 120/80 11/12/24 09:50 BMI result Body Mass Index 30.1 Const General: comfortable and no acute distress Orientation/consciousness: patient oriented x3 HEENT Other: Unremarkable Head: Yes normal to inspection Neck Neck: Yes normal visual inspection Chest Chest palpation & inspection: normal inspection of the chest Resp Auscultation: clear to auscultation bilaterally Cardio Palpation: normal PMI Heart sounds: S1 normal heart sound present, S2 normal heart sound present, no gallops, no murmurs and no rubs GI Palpation (GI): Soft to palpation Back/Spine/Pelvis Other: unremarkable Skin General skin exam: no rashes or lesions noted Neuro General: patient oriented x3 Extrem General: Yes normal to inspection Psych Mental Status: mental status grossly normal Office Procedures EKG Details: EKG with underlying sinus rhythm with sinus arrhythmia at 75/Min; [place] [address]-[id number], Complete Assessment & Plan Assessment & Plan (1) PVC (premature ventricular contraction): Code(s): I49.3 - Ventricular premature depolarization Category: Medical Plan: In the most recent Holter from 2023, underlying rhythm is sinus. PVC burden is about 3.4%. In 202, it was 6%. In the past, it was as much as 21% and 38% in different studies. In the last echocardiogram, LVEF is 55-60% and otherwise unremarkable. Myocardial perfusion imaging study 2019 shows no evidence of any ischemia or infarction. During the exercise component, there were frequent multifocal PVCs and runs of NSVT of up to 9 beats. Continue beta-blockers. Otherwise, discussed about possible contributing factors including alcohol, marijuana, weight, sleep apnea among others. (2) PEYMAN (obstructive sleep apnea): Comment: not on cpap, cannot tolerate Code(s): G47.33 - Obstructive sleep apnea (adult) (pediatric) Category: Medical Plan: Sleep study shows mild to moderately severe obstructive sleep apnea. Intolerant of CPAP. He is aware that it might be contributing to the arrhythmias. (3) Alcohol blood level excessive: Code(s): R78.0 - Finding of alcohol in blood Category: Medical Plan: He drinks at least 8 beers daily. He needs to cut back on this and has been discussed many times including today. Could be contributing to the arrhythmias. Plan Discussion Notes During the visit, we discussed the patient's alcohol consumption and the challenges faced in reducing intake due to social influences. A follow-up appointment is scheduled for one year, during which a Holter monitor will be checked to evaluate any potential cardiac issues. Patient was informed and verbally consented to the use of an ambient scribe for clinic note documentation during this visit. Orders: Orders ECG 3 day holter monitor 1 Year I49.3 - Ventricular premature depolarization Patient Instructions: - Monitor alcohol intake and consider reducing consumption. - Follow up in one year for a Holter monitor check. Coding Level of Care Code Est Pt Level 4 (12764) Complex EM visit Add On G2211 Diagnoses PVC (premature ventricular contraction) I49.3 PEYMAN (obstructive sleep apnea) G47.33 Alcohol blood level excessive R78.0 CPT Codes EKG - CPT: 54058-[id number], Complete ([id number])
[2024-11-12 09:50] VITALS: BP 120/80; PULSE 75; BMI 30.1
--- OUTSIDE RECORDS SUMMARY | 2024-11-12 11:11 | XMS_ITS | Clinical Summary ---
Author Organization [facility] Address [address] [phone] Phone Care Team Providers Care Precision Aircraft Systems Assembler Name Role Phone Khoa Cagle MD Primary [...] 2023 07/15/2023, 12/28/2022, 02/26/2022, Additional history exists INFLUENZA VACCINE (#1) 2024 , 11/12/2019, 02/13/2019 Adult Td,Tdap Booster 02/08/2034 02/09/2024 PNEUMOCOCCAL VACCINES [...] MEDICARE PART A & B Care Teams Precision Aircraft Systems Assembler Relationship Specialty Start Date End Date Khoa Cagle MD [address] [place] [address] [address] [place] [id number] PCP - General Internal Medicine 02/09/24 Additional Source Comments The information contained in this document represents components of the legal health record. It is not the complete legal health record.[facility]
--- OUTSIDE RECORDS SUMMARY | 2024-11-12 11:11 | XMS_ITS | Patient Health Record ---
Author Organization [facility] Address [address] [place] [address] Care Team Providers Care Purchaser Name Role Phone Khoa Cagle MD Primary Care Provider Hellen High Unavailable [phone] Allergies No Known Allergies Reason For Referral [...] Are you an other tobacco user? No Plan Of Treatment No Information Insurance Providers Payer Name Payer Address Payer Phone Subscriber Number Group Number Insured Name Patient Relationship to Insured Coverage Start Date Coverage End Date [facility] [employer] [address] [place] [phone] [id number] Adelso Tilley Self - patient is the insured [employer] [address] [place] [address] [phone] [id number] Adelso Tilley Self - patient is the insured Medical (General) History Medical History History ICD Code Irregular heartbeat Surgical History Surgery Date(Month/Year) colonoscopy
--- OUTSIDE RECORDS SUMMARY | 2024-11-12 11:11 | XMS_ITS | Patient Health Record ---
Author Organization [facility] Address [address] [place] [address] Care Team Providers Care Transcriber Name Role Phone Gurjit (RETIRED) Khoa MULLEN Primary Care Provide r Shaq Moon Unavailable [phone] Allergies No Known Allergies Results Component Value Reference Range Notes Pathology (Not yet reviewed by provider) Interpretation: Performing Lab:[facility], [address] [place] [id number] Notes/Report: Reason For Referral No Information Medications Medication [...] Status Risk Notes Problem Colon cancer screening (177515906) Colon cancer screening (Z12.11) Active confirmed Problem [id number] Encounter for screening for malignant neoplasm of colon (Z12.11) Active confirmed Problem History of adenomatous polyp of colon (755041013) History of adenomatous polyp of colon (Z86.010) Active confirmed Problem Pre-procedure evaluation check (848874481) Encounter for other preprocedural examination (Z01.818) Active confirmed Problem [id number] Preprocedural examination (Z01.818) Active confirmed Encounters Encounter Location Date Provider Diagnosis [facility] Outpatient [address] [place] [phone] 02/28/2024 Shaq Corral Colon cancer scree lucila [...] OF [place] [address] [place] [address] [id number] YIFAN ALMANZA Self - patient is the insured [employer] CLAIM[employer] [address] [place] [address] [phone] [id number] YIFAN ALMANZA Self - patient is the insured Medical (General) History Medical History History ICD Code Denies [place],DM,CVA,Lung disease,renal dise ase Neg. screening colonoscopy i [...]
== END 2024-11-12 10:30 | disposition home or self-care (01) ==
LOC: HO.HCS 09:46
PROVIDERS: PCP Nurse Practitioner Family; Visit Provider Internal Medicine
DX: I49.3 Ventricular premature depolarization (principal); G47.33 Obstructive sleep apnea (adult) (pediatric); R78.0 Finding of alcohol in blood
CPT/HCPCS: 93010; 99214; G2211

== ENCOUNTER → 2024-11-12 09:45 | Outpatient (BNVA) | payer MEDICARE, SELFPAY | PROVIDERS: PCP Nurse Practitioner Family; Visit Provider Internal Medicine | DX: I49.3 Ventricular premature depolarization (principal); G47.33 Obstructive sleep apnea (adult) (pediatric); R78.0 Finding of alcohol in blood | CPT/HCPCS: 93005; 99212 ==